=== PATIENT | female | born 2000 | race Caucasian/White ===

== ENCOUNTER 2024-04-22 08:05 | Outpatient (CLI) | payer BC, SELFPAY ==
--- NOTE | ~2024-04-22 | US_ITS ---
EXAMINATION: US OB transvaginal DATE: 04/22/2024 08:30 INDICATION: viability. . TECHNIQUE: Real-time transvaginal pelvic ultrasound was performed. COMPARISON: None. FINDINGS: The uterus measures 7.6 x 4.3 x 5.9 cm. There is an intrauterine gestational sac. A yolk sac is ident ified. The crown rump length measures 3 mm, which correlates with an estimated gestational age of 6 weeks and 0 day(s) (+/-) 4 day(s). heart motion is identified measuring 103 beats per min [place] (bpm) by M-mode Doppler. The right ovary measures 2.6 x 1.7 x 2.9 cm. The left ovary measures 4.0 x 2.4 x 2.3 cm. There is no free fluid in the pelvis. IMPRESSION: 1. Single live intrauterine gestation with estimated date of delivery of 12/16/2024. Reviewed, dictated and finalized at location E. IMPRESSION: 1. Single live intrauterine gestation with estimated date of delivery of 2024.
== END 2024-04-22 08:06 ==
LOC: MICIMG 08:05
PROVIDERS: PCP Nurse Practitioner Women's Health; Visit Provider Nurse Practitioner Women's Health
DX: Z36.87 Encounter for antenatal screening for uncertain dates (principal)
CPT/HCPCS: 76817

== ENCOUNTER 2024-05-01 16:55 | Emergency (ER) | payer BC, SELFPAY ==
--- NOTE | ~2024-05-01 | US_ITS ---
EXAMINATION: US OB transvaginal INDICATION: 7 weeks, abnml HR on first US, ensure viability TECHNIQUE: Sonography of the pelvis was performed by transabdominal and transvaginal techniques. COMPARISON: None. RESULT: Uterus: 9 26 x 5.6 x 8.1 cm. Retroverted. Possible bicornuate uterus. Homogenous myometrium. Intrauterine gestational sac: Single present. Mean Sac Diameter: 4.4 cm, corresponding gestational age 9 week 6 days. Yolk sac: Irregular, 5 mm. Embryo: Single present. [place] rump length: 1.1 cm, corresponding gestational age 7 weeks, 1 days. G estational heart rate: present , 153 bpm. Subgestational hematoma: 1.4 x 0.8 x 0.4 cm. Right ovary: 3.9 x 1.6 x 2.5 cm. Vascular flow is present. No adnexal mass. Left ovary: 3.8 x 2.6 x 2.3 cm. Vascular flow is present. No adnexal mass. Pelvis free fluid: None. IMPRESSION: Single, live intrauterine gestation. Estimated Gestational Age: 7 weeks, 1 days by crown rump length. BEBE by ultrasound 12/17/2024. Possible bicornuate uterus. Reviewed, dictated and finalized at location K. IMPRESSION: Single, live intrauterine gestation. Estimated Gestational Age: 7 weeks, 1 days by crown rump length. BEBE by ultras ound 12/17/2024. Possible bicornuate uterus.
[2024-05-01 17:00] VITALS: BP 128/81; PULSE 69; RESP 18; TEMP 36.4; O2SAT 100
--- NOTE | 2024-05-01 17:49 | ED.NAVMDI ---
HPI - Nausea/Vomiting/Diarrhea General Chief complaint: Nausea/Vomiting/Diarrhea Stated complaint: 7 weeks vomiting Time Seen by Provider: 05/01/24 17:25 Source: patient Mode of arrival: ambulatory Limitations: no limitations History of Present Illness HPI Narrative: Patient is a 23 y/o female who presents to the ED with report of nausea, vomiting. Patient reports she is currently 7 weeks gestation, . She is switching from Dr. Tripp's office to Dr. Torres, but has not seen Dr. Torres yet. states she has had ultrasound for this , but the heart rate was low and she was told she would need a repeat ultrasound next week. She reports having persistent nausea and vomiting over the last 2 days, states she has been unable to keep down any food or drink. Denies significant abdominal pain. Denies fevers. Reports constipation for past 2 days. Denies urinary complaints. Related Data Allergies Allergy/AdvReac Type Severity Reaction Status Date / Time No Known Allergies Allergy Verified 05/01/24 19:11 Review of Systems Review of Systems: CONSTITUTIONAL: Denies fever, chills, or sweats. GASTROINTESTINAL: See HPI GENITOURINARY: Denies dysuria or hematuria. MUSCULOSKELETAL: Denies back pain, extremity pain, myalgia. All systems reviewed & are unremarkable except as noted in HPI and below Exam Narrative: GENERAL: Well appearing, obese with BMI of 31.4, non-toxic, in no acute distress. HEAD: Normocephalic, atraumatic. RESPIRATORY: Airway patent, respirations nonlabored. Clear to auscultation bilaterally, no rales, rhonchi, wheezing. CARDIOVASCULAR: Regular rate and rhythm ABDOMINAL: Soft, no significant tenderness throughout abdomen, nondistended. Normoactive BS. MUSCULOSKELETAL: Moves all extremities. No gross deformities. SKIN: Warm, dry, normal color. NEURO: A&O X3. Speech clear. Cranial nerves II-XII grossly intact. Steady gait. No ataxic movements. PSYCHIATRIC: Appropriate mood and affect. Normal interaction. Course Vital Signs Vital signs: Vital Signs Temperature 97.6 F 05/01/24 17:00 Pulse Rate 69 05/01/24 17:00 Respiratory Rate 18 05/01/24 17:00 Blood Pressure 128/81 05/01/24 17:00 Pulse Oximetry 100 05/01/24 17:00 Oxygen Delivery Room Air 05/01/24 17:00 Temperature 98.5 F 05/01/24 22:26 Pulse Rate 71 05/01/24 22:26 Respiratory Rate 18 05/01/24 22:26 Blood Pressure 109/73 05/01/24 22:26 Pulse Oximetry 100 05/01/24 22:26 Oxygen Delivery Room Air 05/01/24 17:00 MDM - Nausea/Vomiting/Diarrhea MDM Narrative Medical decision making narrative: Patient presented to ED 7 weeks gestation, with persistent nausea vomiting over the last 2 days. Vital signs are stable upon arrival. Patient in no acute distress. Laboratory studies show white blood count of 12.1, likely reactive from vomiting. Stable electrolytes. UA turbid, no evidence of infection. Beta quant [id number]. Ultrasound obtained. Medical Records Attestation: I reviewed the patient's medical records. Lab Data Attestation: I reviewed the patient's lab results. 05/01/24 17:50 05/01/24 17:49 Labs: Lab Results 05/01/24 05/01/24 05/01/24 Range/Units 17:49 17:50 18:02 WBC 12.1 H (4.5-10.0) K/mm3 RBC 4.60 (4.2-5.4) M/mm3 Hgb 12.2 (12.0-15.0) g/dL Hct 38.6 (37.0-47.0) % MCV 83.9 (80-100) fl MCH 26.5 (26-34) pg MCHC 31.6 L (32-36) g/dl RDW 12.8 (11.5-14.5) % Plt Count 246 (150-375) k/mm3 MPV 10.9 H (7.4-10.4) fl Immature Gran % (Auto) 0.2 (0-0.5) % Neut % (Auto) 69.6 (45.5-73.1) % Lymph % (Auto) 22.7 (18.3-44.2) % [place] % (Auto) 7.1 (2.6-8.5) % Eos % (Auto) 0.2 (0-4.4) % Baso % (Auto) 0.2 (0.2-1.2) % Lymph # (Auto) 2.74 (0.9-3.2) K/mm3 [place] # (Auto) 0.9 H (0.1-0.6) K/mm3 Eos # (Auto) 0.0 (0-0.3) K/mm3 Baso # (Auto) 0.0 (0.0-0.1) K/mm3 Abs Immat
[2024-05-01] MEDS: ONDANSETRON INJ 4 MG/2 ML VIAL IV PUSH (17:50)
[2024-05-01] MEDS: SODIUM CHLORIDE 0.9% IV 1,000 ML 999 ML IV CONT (17:50)
[2024-05-01 18:00] LABS: Basophils Percent Auto 0.2 % (0.2-1.2); Eosinophils Percent Auto 0.2 % (0-4.4); Hematocrit 38.6 % (37.0-47.0); Hemoglobin 12.2 g/dL (12.0-15.0); Immature Granulocyte Absolute 0.03 K/mm3 (0.00-0.031); Immature Granulocyte Percent A 0.2 % (0-0.5); Immature Platelet Fraction Pct 4.8 % (0.9-11.2); Lymphocytes Absolute Auto 2.74 K/mm3 (0.9-3.2); Lymphocytes Percent Auto 22.7 % (18.3-44.2); Mean Corpuscular HGB Conc 31.6 g/dl (32-36); Mean Corpuscular Hemoglobin 26.5 pg (26-34); Mean Corpuscular Volume 83.9 fl (80-100); Mean Platelet Volume 10.9 fl (7.4-10.4); Monocytes Absolute Auto 0.9 K/mm3 (0.1-0.6); Monocytes Percent Auto 7.1 % (2.6-8.5); Neutrophils Absolute Auto 8.4 K/mm3 (1.3-6.7); Neutrophils Percent Auto 69.6 % (45.5-73.1); Platelet Count Result 246 k/mm3 (150-375); Red Cell Distribution Width 12.8 % (11.5-14.5); White Blood Count 12.1 K/mm3 (4.5-10.0)
[2024-05-01 18:09] LABS: Alanine Aminotransferase 12 U/L (6-35); Albumin Level 4.4 g/dL (3.5-5.1); Alkaline Phosphatase 50 U/L (38-126); Anion Gap 12 mmol/L (4-12); Aspartate Amino Transferase 21 U/L (14-36); Bilirubin,Total 0.5 mg/dL (0.2-1.3); Blood Urea Nitrogen 6 mg/dL (7-17); Carbon Dioxide 21 mmol/L (22-30); Chloride 105 mmol/L (98-107); Estimated CRCL calculation 142 ml/min; Estimated Glomerular Filt Rate > 60; Glucose 79 mg/dL (65-110); Lipase 58 U/L (23-300); Potassium 3.7 mmol/L (3.4-5.0); Sodium 138 mmol/L (137-145)
[2024-05-01 18:22] LABS: Appearance Urine Turbid (Clear); Bacteria Urine None Seen /hpf; Bilirubin Urine Negative (Negative); Blood Urine Negative (Negative); Color Urine Yellow (Yellow); Glucose Urine UA Negative (Negative); Ketones Urine Negative (Negative); Leukocyte Esterase Ur Trace LEU/UL (Negative); Nitrate Urine Negative (Negative); Non Pathogenic Casts 0-2; Protein Urine Negative (Negative); RBC Urine 0-2 /hpf (0-2); Specific Grav Ur 1.013 (1.001-1.035); Squamous Epithelial Cell Urine Occasional /hpf (Few); Urobilinogen Urine 0.2 mg/dL (<2.0); WBC Urine 0-5 /hpf (0-3); pH Urine 7.5 (5.0-9.0)
[2024-05-01 18:23] LABS: Add Urine Microscopic? YES
[2024-05-01 20:06] VITALS: BP 109/61; PULSE 89; RESP 16; O2SAT 100
[2024-05-01 21:50] VITALS: BP 111/73; PULSE 66; RESP 18; O2SAT 100
[2024-05-01 22:26] VITALS: BP 109/73; PULSE 71; RESP 18; TEMP 36.9; O2SAT 100
== END 2024-05-01 22:15 | disposition home or self-care (01) ==
PROVIDERS: Emergency Provider Physician Assistant
DX: O46.91 Antepartum hemorrhage, unspecified, first trimester (principal); R11.2 Nausea with vomiting, unspecified; O26.891 Other specified pregnancy related conditions, first trimester; Z3A.01 Less than 8 weeks gestation of pregnancy
CPT/HCPCS: 36415; 76817; 80053; 81001; 83690; 83735; 84702; 85025; 85055; 96361; 96374; 99284; J2405; J7030

== ENCOUNTER 2024-05-18 16:58 | Outpatient (CLI) | payer BC, SELFPAY ==
[2024-05-18 17:41] LABS: Basophils Percent Auto 0.2 % (0.2-1.2); Eosinophils Absolute Auto 0.1 K/mm3 (0-0.3); Eosinophils Percent Auto 0.8 % (0-4.4); Hematocrit 38.7 % (37.0-47.0); Hemoglobin 12.3 g/dL (12.0-15.0); Immature Granulocyte Absolute 0.03 K/mm3 (0.00-0.031); Immature Granulocyte Percent A 0.3 % (0-0.5); Lymphocytes Absolute Auto 2.48 K/mm3 (0.9-3.2); Lymphocytes Percent Auto 24.2 % (18.3-44.2); Mean Corpuscular HGB Conc 31.8 g/dl (32-36); Mean Corpuscular Hemoglobin 26.5 pg (26-34); Mean Corpuscular Volume 83.4 fl (80-100); Mean Platelet Volume 10.5 fl (7.4-10.4); Monocytes Absolute Auto 0.8 K/mm3 (0.1-0.6); Monocytes Percent Auto 8.2 % (2.6-8.5); Neutrophils Absolute Auto 6.8 K/mm3 (1.3-6.7); Neutrophils Percent Auto 66.3 % (45.5-73.1); Platelet Count Result 250 k/mm3 (150-375); Red Blood Count 4.64 M/mm3 (4.2-5.4); White Blood Count 10.3 K/mm3 (4.5-10.0)
[2024-05-18 18:23] LABS: Rapid Plasma Reagin Non-Reactive (NonReactive)
[2024-05-18 18:32] LABS: HIV 1/2 Ab P24 Ag Result Negative (Negative)
[2024-05-18 19:13] LABS: Hepatitis B Surface Antigen Negative (Negative)
[2024-05-18 19:19] LABS: Rubella IgG Antibody > 110.0 IU/ML
== END 2024-05-18 16:59 | disposition home or self-care (01) ==
PROVIDERS: PCP Nurse Practitioner Women's Health; Visit Provider Student in an Organized Health Care Education/Training Program
DX: Z34.90 Encounter for supervision of normal pregnancy, unspecified, unspecified trimester (principal)
CPT/HCPCS: 36415; 84702; 85025; 86592; 86644; 86703; 86747; 86762; 86787; 86850; 86900; 86901; 87086; 87340; G0432

== ENCOUNTER 2024-05-21 10:45 | Emergency (ER) | payer BC, SELFPAY ==
[2024-05-21 10:56] VITALS: BP 125/72; PULSE 89; RESP 16; TEMP 36.1; O2SAT 100
--- NOTE | 2024-05-21 11:57 | PC.NURSE ---
head mechanic and xpc tech at bedside to do visual exam and herpes swab.
--- NOTE | 2024-05-21 12:11 | ED.GENADULT ---
HPI - General Adult General Chief complaint: Urogenital-Female Stated complaint: Vaginal Issue Source: patient Mode of arrival: ambulatory Limitations: no limitations History of Present Illness HPI narrative: Patient presents for evaluation of painful lesions to the vagina for the last 3 days. She has a history of herpes. She is currently , 10 weeks gestation, with confirmed IUP per ultrasound. OBGYN is Dr. Torres. She denies any abdominal pain, vaginal bleeding or discharge, urinary symptoms, fever, chills. Related Data Home Medications Medication Instructions Recorded Confirmed vits no.126-ferrous fum tablet PO 05/03/24 05/03/24 28 mg iron-folic acid 800 mcg tablet (Classic ) Allergies Allergy/AdvReac Type Severity Reaction Status Date / Time No Known Allergies Allergy Verified 05/21/24 11:28 Review of Systems Review of Systems: CONSTITUTIONAL: Denies fever, chills, or sweats. EYES: Denies visual changes, redness, or discharge. ENT: Denies rhinorrhea, congestion, sore throat, or otalgia. CARDIOVASCULAR: Denies chest pain, palpitations, or edema. RESPIRATORY: Denies cough or dyspnea. GASTROINTESTINAL: Denies abdominal pain, nausea, vomiting, or diarrhea. GENITOURINARY: Denies dysuria or hematuria. Denies vaginal bleeding or discharge SKIN: Reports painful lesions the vagina. Denies rash or itching. MUSCULOSKELETAL: Denies back pain, joint pain, or myalgia. NEUROLOGIC: Denies headache, numbness, dizziness, or weakness. PSYCHIATRIC: Denies anxiety or depression. [facility] Past Medical History Medical History Reflux nephropathy Surgical History Surgical History No pertinent past surgical history Family History Family History Other Diabetes mellitus Social History Social History Smoking status: Never smoker Tobacco type: e-cigarettes/vaping Second hand tobacco smoke exposure: Yes Alcohol intake: never Substance use: never Substance use type: does not use Do You Feel Safe in your Home?: Yes Lack of Transportation: No Lack of Food: Never True Current Housing: I Have Housing Concerned About Future Housing: No Difficulty Paying Gas/Electric Bills: No Difficulty Paying for Meds: No Currently Unemployed: No Education: High School Diploma/GED Difficulty w/ Childcare or Family Care: No Living arrangements: with family Occupation/Education: occupation 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 HEAD: Normocephalic, atraumatic. EYES: PERRLA and EOMI. ENT: Nares clear, no rhinorrhea or epistaxis. Mucous membranes moist. Oropharynx without tonsillar hypertrophy exudate or other lesions. Bilateral TMs pearly meneses nonbulging NECK: Supple. No adenopathy or masses. No carotid bruits or JVD CHEST: Clear to auscultation. No respiratory distress. No wheezes rales or rhonchi HEART: Regular rate and rhythm. No murmur heard. Normal peripheral pulses. ABDOMEN: Soft, nontender, nondistended, normal active bowel sounds. GENITAL: There 3 ulcerative lesions to the to the labia that are approximately 2 mm in size. EXTREMITIES: Normal range of motion. No edema. SKIN: Warm, dry, no rash. NEURO: No focal deficits. Alert and oriented x3. PSYCH: Normal mood and affect. Course Course Emergency Course: This is a 23-year-old female who presented for evaluation of painful lesions to the vagina. Swabs were obtained to assess for herpes. My clinical suspicion is high that this is herpes. I contacted pharmacist at [facility] to determine whether Valtrex
[2024-05-25 04:23] LABS: Source VAGINA
== END 2024-05-21 12:13 | disposition home or self-care (01) ==
PROVIDERS: Emergency Provider Nurse Practitioner
DX: A60.00 Herpesviral infection of urogenital system, unspecified (principal)
CPT/HCPCS: 87255; 99213; G0463

== ENCOUNTER 2024-07-31 10:46 | Observation (INO) | payer BC, SELFPAY ==
--- NOTE | ~2024-07-31 | US_ITS ---
US OB follow up Ordering provider: Earl Red MD History: . well being, size, placenta, cervical length . Comparison: None. Technique: Transabdominal ultrasound of the pelvis (Doppler ultrasound interrogation techniques used as needed for this exam.) FINDINGS: CERVIX: Normal. UTERUS: Single intrauterine is noted. No heart tones detected. anatomy is difficult to distinguish. Placenta anterior. Cervix measures 3 cm. Gestational age is 20 weeks and 2 days. EFW is 316.4 gm. EFW/GP 51.3%. IMPRESSION: No heart tones detected. Anatomical landmarks are difficult to distinguish. Reviewed, dictated and finalized at location A.
--- NOTE | 2024-07-31 10:46 | OBADM ---
This patient, Екатерина Cameron, admitted to the OB room OB Post 116 for observation. pt states she started to have dark brown vaginal spotting which is now light pick. only she wipes. she feels some cramping but not painful. denies feeling of movement yet. Patient/family oriented to hospital policies and general routines including ID bracelet, bed and alarms, visiting hours, pain management, procedures, bathroom and other care routines, personal items, smoking policy, room service/diet, and visiting hours. Patient/Family are encouraged to report perceived risks to care and to ask questions if they do not understand what they are told or what they should do.
[2024-07-31 11:00] VITALS: BMI 32.1
--- NOTE | 2024-07-31 11:30 | PC.NURSE ---
this RN trying to observe heart tones, but unable to obtain heart tones. called Dr. Red notified unable to obtain FHTs. order received for ultrasound.
[2024-07-31 11:36] VITALS: BP 122/80; PULSE 78
--- NOTE | 2024-07-31 11:50 | PC.NURSE ---
Dr. Red at bedside, spoke to pt and informed no heart tones are obtained with ultrasound. PT and FOB cried and asked question about option of procedure. Induction of labor was discussed and pt and FOB requested to be induced tomorrow AM. Pt asked appropriate question about induction and cause of demise. explained there is no answer for the cause at this time. pt verbalized understanding
--- NOTE | 2024-07-31 12:00 | PC.NURSE ---
ultrasound at bedside unable to obtain heart tones.
--- NOTE | 2024-07-31 13:29 | PM.IMHP ---
H&P: HPI History of Present Illness Date/Time: 07/31/24 13:29 Chief Complaint: vaginal spotting/cramping Narrative: 23 yo at 20w0d who presented with complaint of vaginal spotting and cramping starting this morning. Patient states she noticed some light pink to brown discharge on tissue. She reports associated cramping. She denies any large gush of blood or fluid. She denies any trauma to the abdomen. She denies any sick contacts. She denies any fevers, chills, nausea, vomiting. is complicated by anxiety, h/o HSV, and nausea. Review of Systems Cardiovascular: Cardiovascular: Denies chest pain, Denies leg edema, Denies palpitations, Denies dyspnea and Denies dyspnea on exertion Respiratory: Respiratory: Denies cough, Denies dyspnea and Denies dyspnea on exertion Gastrointestinal: Gastrointestinal: Denies abdominal pain, Denies constipation, Denies diarrhea, Denies nausea and Denies vomiting Genitourinary: Genitourinary: Denies hematuria, Denies urinary frequency, Denies dysuria, Denies pelvic pain, Denies urinary incontinence and Denies vaginal discharge Neurologic: Reports system reviewed and no additional complaints, except as documented Psychiatric: Psychiatric: Reports no additional psychiatric complaints Endocrine: Endocrine: Denies palpitations Meds Home Medications and Allergies Home Medications Medication Instructions Recorded Confirmed Type ondansetron 4 mg disintegrating 4 mg PO Q8H PRN nausea and 05/01/24 Rx tablet vomiting #15 tabs Allergies Allergy/AdvReac Type Severity Reaction Status Date / Time No Known Allergies Allergy Verified 05/01/24 19:11 Vital Signs Vital Signs - 24 hr 07/31/24 11:36 Pulse Rate 78 Blood Pressure 122/80 Exam Const: General: no acute distress Eyes: EOM: EOMs intact bilaterally Neck: Neck: supple Thyroid: thyroid normal Chest: Breast/axilla inspection: normal inspection of the breasts Breast/axilla palpation: normal palpation of the breasts, normal palpation of the axillae and no axillary lymphadenopathy Resp: Effort & Inspection: normal respiratory effort Auscultation: clear to auscultation bilaterally Cardio: Rate: regular rate Rhythm: regular rhythm GI: Inspection: non-distended and other (Gravid) GI Palp: Yes Soft to palpation, No Tenderness to palpation present (GI) and No Guarding due to palpation present (GI) Auscultation: normal bowel sounds : Speculum Exam - Vagina: No vaginal bleeding OB/external & speculum: external exam normal; No vaginal bleeding Skin: General skin exam: normal color and no rashes or lesions noted Neuro: Cognition (Neuro): normal cognition Speech: normal speech Extrem: General: normal to inspection Psych: Mental Status: mental status grossly normal Affect: normal affect Assessment and Plan Assessment and plan (1) IUFD (intrauterine ): Status: Acute Assessment and Plan: 23 yo at 20w0d who was found to have IUFD on US Patient initially presented with complaint of vaginal spotting and cramping No heart tones were identified by Doppler Confirmation ultrasound confirmed IUFD Patient and partner grieving appropriately IUFD discussed at length Condolences given Management options discussed. Discussed misoprostol induction of labor All questions answered Patient request induction of labor tomorrow (2) Anxiety: Code(s): F41.9 - Anxiety disorder, unspecified Status: Acute Assessment and Plan: pt stable on zoloft will continue to offer support
--- NOTE | 2024-08-01 08:14 | PM.OBTRLD ---
OB - Triage/Final Diagnosis Visit Information Date of evaluation: 07/31/24 Reason for evaluation: other (IUFD) Comments/Additional reasons for admission: I have assessed the risk for this patient, Екатерина Cameron, and determined that she would benefit from observation care. Evaluation Vital signs: Vital Signs - 24 hr 07/31/24 11:36 07/31/24 11:00 Pulse Rate 78 Blood Pressure 122/80 Oxygen Delivery Room Air
== END 2024-07-31 13:25 | disposition home or self-care (01) ==
PROVIDERS: Admitting Provider Student in an Organized Health Care Education/Training Program; Visit Provider Student in an Organized Health Care Education/Training Program
DX: O36.4XX0 Maternal care for intrauterine death, not applicable or unspecified (principal); Z3A.20 20 weeks gestation of pregnancy; F41.9 Anxiety disorder, unspecified
CPT/HCPCS: 76816; G0378; G0379

== ENCOUNTER 2024-08-01 06:26 | Inpatient (IN) | payer BC, SELFPAY ==
[2024-08-01] VITALS (74 sets, daily range): BP systolic 99–139; BP diastolic 47–109; PULSE 57–177; TEMP 36.5–37.3; O2SAT 73–100; BMI 32.3
--- NOTE | 2024-08-01 07:33 | WPDHPUPDATE1 ---
History and Physical Update Update Date/Time: 08/01/24 07:33 23 yo who presents for management of IUFD at 20w0d History and Physical has been reviewed, including an updated exam of the patient. There are NO changes in the patient's condition. Risks, benefits, and alternatives have been discussed and questions answered. Patient agrees to proceed with procedure. A/P: admit to L&D routine admission orders continuous tocometer will plan for vaginal misoprostol IOL
[2024-08-01 07:40] LABS: Basophils Percent Auto 0.1 % (0.2-1.2); Eosinophils Absolute Auto 0.1 K/mm3 (0-0.3); Eosinophils Percent Auto 0.6 % (0-4.4); Hematocrit 37.5 % (37.0-47.0); Hemoglobin 11.7 g/dL (12.0-15.0); Immature Granulocyte Absolute 0.05 K/mm3 (0.00-0.031); Immature Granulocyte Percent A 0.5 % (0-0.5); Lymphocytes Percent Auto 17.6 % (18.3-44.2); Mean Corpuscular HGB Conc 31.2 g/dl (32-36); Mean Corpuscular Hemoglobin 26.4 pg (26-34); Mean Corpuscular Volume 84.7 fl (80-100); Mean Platelet Volume 10.6 fl (7.4-10.4); Monocytes Absolute Auto 0.6 K/mm3 (0.1-0.6); Monocytes Percent Auto 6.3 % (2.6-8.5); Neutrophils Absolute Auto 7.3 K/mm3 (1.3-6.7); Neutrophils Percent Auto 74.9 % (45.5-73.1); Platelet Count Result 216 k/mm3 (150-375); Red Blood Count 4.43 M/mm3 (4.2-5.4); Red Cell Distribution Width 13.9 % (11.5-14.5); White Blood Count 9.7 K/mm3 (4.5-10.0)
[2024-08-01] MEDS: miSOPROStol 200 MCG TABLET VAGINAL ×3 (08:05→16:55)
[2024-08-01 08:09] LABS: Free T4 Free Thyroxine 0.93 ng/mL (0.78-2.19)
[2024-08-01 08:11] LABS: Rapid Plasma Reagin Non-Reactive (NonReactive)
[2024-08-01 08:16] LABS: Hemoglobin A1C 4.8 % (<5.7)
[2024-08-01 08:32] LABS: HIV 1/2 Ab P24 Ag Result Negative (Negative)
[2024-08-01 08:38] LABS: Amphetamine Screen Urine Negative (Negative); Barbiturate Screen Urine Negative (Negative); Benzodiazepines Screen Urine Negative (Negative); Cannabinoid Screen Urine Negative (Negative); Cocaine Screen Urine Negative (Negative); Methadone Screen Urine Negative (Negative); Opiate Screen Urine Negative (Negative); Phencyclidine Screen Urine Negative (Negative)
[2024-08-01 09:12] LABS: Rubella IgG Antibody > 110.0 IU/ML
--- NOTE | 2024-08-01 10:23 | PC.NURSE ---
Maged Goldstein RN, Share Coordinator, spoke with Екатерина and BRIAN Moreno from 9:45am-10:20am discussing Share, what to expect for delivery, mementos. Questions asked and answered at this time.
[2024-08-01] MEDS: ACETAMINOPHEN 500 MG TABLET 1000 MG PO (10:40)
[2024-08-01] MEDS: fentaNYL CITRATE INJ (*CRX) 100 MCG/2 ML VIAL 50 MCG IV PUSH ×3 (13:11→16:27)
[2024-08-01] MEDS: ONDANSETRON INJ 4 MG/2 ML VIAL IV PUSH (13:18)
[2024-08-01] MEDS: LACTATED RINGERS 1,000 ML 125 ML IV CONT ×2 (16:00→16:36)
--- NOTE | 2024-08-01 16:15 | WPDANESEPP ---
Anes - Eval Pre Procedure Procedure: Labor Epidural Date/Time: 08/01/24 16:15 Surgeon: Neda Preop Diagnosis: Labor Pain Pre Op Diagnosis: IUFD Patient Data Age: 23 Gender: F Height: 1.7 m Weight: 93.5 kg Last Vital Signs Temp 36.7 C 08/01/24 14:49 Pulse 79 08/01/24 16:00 BP 120/50 L 08/01/24 16:00 O2 Del Method Room Air 08/01/24 07:45 Allergies Allergy/AdvReac Type Severity Reaction Status Date / Time No Known Allergies Allergy Verified 07/31/24 14:18 Home Medications Medication Instructions Recorded Confirmed Type ondansetron 4 mg disintegrating 4 mg PO Q8H PRN nausea and 05/01/24 08/01/24 Rx tablet vomiting #15 tabs valacyclovir 500 mg tablet 500 mg PO Q12H #6 tabs 05/21/24 08/01/24 Rx (Valtrex) sertraline 100 mg tablet 100 mg PO DAILY #90 tabs 05/31/24 08/01/24 Rx fluconazole 150 mg tablet 150 mg PO ONCE #1 tablet 06/19/24 08/01/24 Rx ondansetron 4 mg disintegrating 4 mg PO Q6H PRN nausea and 06/27/24 08/01/24 Rx tablet vomiting #30 tabs vits no.126-ferrous fum 1 tablet PO DAILY #90 tabs 06/27/24 08/01/24 Rx 28 mg iron-folic acid 800 mcg tablet (Classic ) Laboratory Tests 08/01/24 08/01/24 08/01/24 06:54 06:54 06:54 WBC 9.7 K/mm3 (4.5-10.0) RBC 4.43 M/mm3 (4.2-5.4) Hgb 11.7 L g/dL (12.0-15.0) Hct 37.5 % (37.0-47.0) MCV 84.7 fl (80-100) MCH 26.4 pg (26-34) MCHC 31.2 L g/dl (32-36) RDW 13.9 % (11.5-14.5) Plt Count 216 k/mm3 (150-375) MPV 10.6 H fl (7.4-10.4) Immature Gran % (Auto) 0.5 % (0-0.5) Neut % (Auto) 74.9 H % (45.5-73.1) Lymph % (Auto) 17.6 L % (18.3-44.2) [place] % (Auto) 6.3 % (2.6-8.5) Eos % (Auto) 0.6 % (0-4.4) Baso % (Auto) 0.1 L % (0.2-1.2) Lymph # (Auto) 1.70 K/mm3 (0.9-3.2) [place] # (Auto) 0.6 K/mm3 (0.1-0.6) Eos # (Auto) 0.1 K/mm3 (0-0.3) Baso # (Auto) 0.0 K/mm3 (0.0-0.1) Abs Immat Gran (auto) 0.05 H K/mm3 (0.00-0.031) Absolute Neuts (auto) 7.3 H K/mm3 (1.3-6.7) Absolute Nucleated RBC 0.000 K/mm3 (0.0-0.012) Nucleated RBC % 0.0 % (0.0-0.2) LA PTT Screen Pending LA PTT Comment Pending dRVVT Screen Pending Lupus Anticoag Interp Pending Hemoglobin A1c 4.8 % (<5.7) TSH 1.590 uIU/mL (0.465-4.680) Free T4 0.93 ng/mL (0.78-2.19) Urine Opiates Screen Urine Methadone Screen Ur Barbiturates Screen Ur Phencyclidine Scrn Ur Amphetamine Screen U Benzodiazepines Scrn Urine Cocaine Screen U Cannabinoids Screen Beta-2-GPI IgG Ab Pending Pending Beta-2-GPI IgA Ab Pending Pending Beta-2-GPI IgM Ab Pending Phosphatidylserine Ab Phosphatidylserine IgG Phosphatidylserine IgA Phosphatidylserine IgM Anti-Cardiolipin IgG Ab Anti-Cardiolipin IgA Ab Anti-Cardiolipin IgM Ab RPR CMV IgG Ab CMV IgM Ab HSV I Specific Ab HSV II Specific Ab HIV 1&2 Ab/P24 Ag 4thGn Parvovirus B19 IgG Intp Parvovirus B19 IgM Intp Rubella IgG Antibody Toxoplasma IgG Ab Toxoplasma IgM Ab Add Miscellaneous Test Blood Type Antibody Screen 08/01/24 08/01/24 08/01/24 06:54 06:54 06:54 WBC RBC Hgb Hct MCV MCH MCHC RDW Plt Count MPV Immature Gran % (Auto) Neut % (Auto) Lymph % (Auto
--- NOTE | 2024-08-01 19:08 | PM.OBPRVD ---
OB - Vaginal Delivery Note Procedure Delivery date: 08/01/24 Events: Other (intrauterine demise) Induction method: Per Misoprostol Protocol Delivery augmentation: Rupture of Membranes Delivery monitor: External Uterine Route of delivery: Episiotomy description: None Laceration Description: None Specimen: Yes Quantitative Blood Loss (ml): 100 Anesthesia type: Epidural Disposition: Floor Complications: No immediate complications Narrative: Patient reports increased pelvic pressure. Fetus was noted to be partially delivered through the cervix. With gentle fundal pressure, the fetus was delivered into the vagina. The umbilical cord was identified and clamped. The placenta delivered with gentle traction. The perineum was examined and noted to be intact. Good hemostasis was noted. Bedside US was performed and a good endometrial stripe was noted. The patient and family were grieving appropriately in the room. Baby Date of : 08/01/24 Gestational Age by Date: 20 Infant gender: Male presentation: compound Placenta delivery description: Spontaneous Cord Vessel Description: Other (torsed, attached to head) score one minute: 0 score five minutes: 0
[2024-08-01] MEDS: ACETAMINOPHEN 325 MG TABLET 650 MG PO (20:16)
--- NOTE | 2024-08-01 22:33 | PC.NURSE ---
This RN called the coroners office at this time.
--- NOTE | 2024-08-01 23:13 | PC.NURSE ---
This nurse called [facility] at this time. Reported demise.
[2024-08-02 00:57] VITALS: PULSE 90; O2SAT 96
[2024-08-02 00:58] VITALS: BP 95/51; PULSE 75
[2024-08-02 01:00] VITALS: BP 128/71; PULSE 83
[2024-08-02 01:14] VITALS: TEMP 36.3
[2024-08-02 04:59] VITALS: PULSE 69; O2SAT 98
[2024-08-02 05:00] VITALS: BP 117/66; PULSE 67; TEMP 36.6
--- NOTE | 2024-08-02 07:22 | PM.OBDSVD ---
DS: Admitting Diagnosis Discharge Date 08/02/24 Admitting Diagnosis intrauterine demise DS: Discharge Diagnosis Discharge Diagnosis (1) IUFD (intrauterine ): Status: Acute OB - DS: Summary Hospital Course Hospital Course: 23 yo who presented with IUFD at 20w0d. Patient underwent misoprostol IOL. She delivered the fetus and placenta without complication. Patient was observed overnight. Her hospital course was uncomplicated and she was discharged home. OB Procedures : None OB Procedures Intrapartum: Spontaneous Vag Delivery OB Procedures: : RHo (D) lg Peripartum Data Infant Delivery Method: Natural Vaginal Laceration Description: None Episiotomy description: None complications: none Status at Discharge Overall status at discharge: patient is back to baseline Time Spent with Patient Time attestation: Total time spent providing and/or coordinating discharge services: Time spent: Less than 30 minutes DS: Data Data Completed and Pending Labs on day of discharge: Labs from last 24 hours 08/01/24 08/01/24 08/01/24 07:43 06:54 06:54 WBC RBC Hgb Hct MCV MCH MCHC RDW Plt Count MPV Immature Gran % (Auto) Neut % (Auto) Lymph % (Auto) Twiggs % (Auto) Eos % (Auto) Baso % (Auto) Lymph # (Auto) Twiggs # (Auto) Eos # (Auto) Baso # (Auto) Abs Immat Gran (auto) Absolute Neuts (auto) Absolute Nucleated RBC Nucleated RBC % LA PTT Screen LA PTT Comment dRVVT Screen Lupus Anticoag Interp Hemoglobin A1c TSH Free T4 Urine Opiates Screen Negative Urine Methadone Screen Negative Ur Barbiturates Screen Negative Ur Phencyclidine Scrn Negative Ur Amphetamine Screen Negative U Benzodiazepines Scrn Negative Urine Cocaine Screen Negative U Cannabinoids Screen Negative Beta-2-GPI IgG Ab Beta-2-GPI IgA Ab Beta-2-GPI IgM Ab Phosphatidylserine Ab Phosphatidylserine IgG Phosphatidylserine IgA Phosphatidylserine IgM Anti-Cardiolipin IgG Ab Anti-Cardiolipin IgA Ab Pending Anti-Cardiolipin IgM Ab Pending Pending RPR Non-reactive CMV IgG Ab Pending CMV IgM Ab Pending HSV I Specific Ab Pending HSV II Specific Ab Pending HIV 1&2 Ab/P24 Ag 4thGn Negative Parvovirus B19 IgG Intp Pending Parvovirus B19 IgM Intp Pending Rubella IgG Antibody > 110.0 Toxoplasma IgG Ab Pending Toxoplasma IgM Ab Pending Add Miscellaneous Test Pending Blood Type A Negative Antibody Screen Negative 08/01/24 08/01/24 08/01/24 06:54 06:54 06:54 WBC RBC Hgb Hct MCV MCH MCHC RDW Plt Count MPV Immature Gran % (Auto) Neut % (Auto) Lymph % (Auto) Twiggs % (Auto) Eos % (Auto) Baso % (Auto) Lymph # (Auto) Twiggs # (Auto) Eos # (Auto) Baso # (Auto) Abs Immat Gran (auto) Absolute Neuts (auto) Absolute Nucleated RBC Nucleated RBC % LA PTT Screen LA PTT Comment dRVVT Screen Lupus Anticoag Interp Hemoglobin A1c TSH Free T4 Urine Opiates Screen Urine Methadone Screen Ur Barbiturates Screen Ur Phencyclidine Scrn Ur Amphetamine Screen U Benzodiazepines Scrn Urine Cocaine Screen U Cannabinoids Screen Beta-2-GPI IgG Ab Beta-2-GPI IgA Ab Pending Beta-2-GPI IgM Ab Pending Pending Phosphatidylserine Ab Pending Phosphatidylserine IgG Pending Phosphatidylserine IgA Pending Phosphatidylserine IgM Pending Anti-Cardiolipin IgG Ab Pending Pending Anti-Cardiolipin IgA Ab Pending Anti-Cardiolipin IgM Ab RPR CMV IgG Ab CMV IgM Ab HSV I Specific Ab HSV II Specific Ab HIV 1&2 Ab/P24 Ag 4thGn Parvovirus B19 IgG Intp Parvovirus B19 IgM Intp Rubella IgG Antibody Toxoplasma IgG Ab Toxoplasma IgM Ab Add Miscellaneous Test Blood Type Antib
[2024-08-02] MEDS: ACETAMINOPHEN 325 MG TABLET 650 MG PO (07:51)
[2024-08-02 19:29] LABS: Lupus dRVVT Screen 42 sec (< OR = 45); PTT-LA Screen 37 sec (< OR = 40)
[2024-08-03 03:53] LABS: Toxoplasma IgG Antibody <7.20 IU/mL
[2024-08-05 03:18] LABS: Anti Cardio Antibody IgM <2.0 MPL-U/mL; Anti Cardiolipin Antibody IgA <2.0 APL-U/mL; Anti Cardiolipin Antibody IgG <2.0 GPL-U/mL
[2024-08-07 10:38] LABS: PS/PT AB IgG 118 U (< OR = 30); PS/PT AB IgM <9 U (< OR = 30)
[2024-08-09 04:43] LABS: CMV IgM Antibody <30.00 AU/mL; Toxoplasma IgM Antibody <8.00 AU/mL
[2024-08-15 13:08] LABS: Anti Cardio Antibody IgM <2.0 MPL-U/mL; Anti Cardiolipin Antibody IgA <2.0 APL-U/mL; Anti Cardiolipin Antibody IgG <2.0 GPL-U/mL
== END 2024-08-02 09:05 | disposition home or self-care (01) | DRG 807 ==
PROVIDERS: Admitting Provider Student in an Organized Health Care Education/Training Program; Visit Provider Student in an Organized Health Care Education/Training Program
DX: O36.4XX0 Maternal care for intrauterine death, not applicable or unspecified (principal); Z37.1 Single stillbirth; Z3A.20 20 weeks gestation of pregnancy
CPT/HCPCS: 36415; 80307; 83036; 84439; 84443; 85025; 85613; 85730; 86146; 86147; 86592; 86644; 86645; 86695; 86696; 86703; 86747; 86762; 86777; 86850; 86900; 86901; 88307; A9270; G0432; J2405; J2795; J3010; J7120

== ENCOUNTER 2024-08-06 13:44 | Outpatient (CLI) | payer SELFPAY ==
--- NOTE | 2024-08-06 15:10 | PC.NURSE ---
This pt arrived on unit this afternoon in tears after history of 20 wk IUFD earlier this week. Talked with this patient and consulted with Maged Goldstein RN and Dr. Marsh. Dr. Marsh was given the history on this pt of Dr. Red's. MD was informed of pt's feeling anxious, overwhelmed, and at times a sense of impending doom . Pt denies any thoughts of harming herself or others. States she had a history of anxiety that Paxil controlled for years, but it stopped working and she started another med , then became and was switched to Zoloft that has never seemed to help her anxiety. Pt's family is from [place] and her mother was here until yesterday. She moved up here with the father of the baby for his work, but doesn't feel like she has the support from his family. He didn't even want her to come in to see us today and she had to get mad and come in on her own. Pt verbalized that she felt much better after talking and felt like she had decompressed . Pt has appointment to see Dr. Red in the morning. Pt gave me permission to give her contact information to Nick Gao to set up a counseling session for this week. Maged Goldstein RN plans to follow up with pt early this week also. No additional orders or recommendations from Dr. Marsh. Pt reassured that her feelings are valid and very normal and feels good about the follow up she will receive. Pt home with instructions to feel free to reach out to us if she should need to prior to her seeing MD in the morning.
--- NOTE | 2024-08-06 16:48 | PC.NURSE ---
Nick Gao DNP, CNM, PMHNP-BC from [facility] called back after receiving message and given pt's contact information and informed of patients' history and concerns. She plans to try to contact pt shasha.
== END 2024-08-06 13:45 | disposition home or self-care (01) ==
PROVIDERS: Visit Provider Obstetrics & Gynecology
DX: O99.345 Other mental disorders complicating the puerperium (principal)
CPT/HCPCS: 99199

== ENCOUNTER 2024-08-07 11:06 | Outpatient (CLI) | payer BC, SELFPAY ==
--- NOTE | ~2024-08-07 | US_ITS ---
EXAMINATION: US pelvic complete w TV DATE: 08/07/2024 11:28 INDICATION: Pelvic and perineal pain. TECHNIQUE: Multiple transabdominal and transvaginal sonographic images of the pelvis were obtained. COMPARISON: Ultrasound 07/31/2024 FINDINGS: TRANSABDOMINAL ULTRASOUND: The uterus measures 10.3 x 0.5 x 6.3 cm. There is no free fluid in the pelvis. TRANSVAGINAL ULTRASOUND: The endometrial complex measures 22 mm in thickness. The ovaries are not visualized. IMPRESSION: 1. Thickened endometrial complex suspicious for retained products of conception. Reviewed, dictated and finalized at location A. IMPRESSION: 1. Thickened endometrial complex suspicious for retained products of conception .
== END 2024-08-07 11:07 | disposition home or self-care (01) ==
LOC: GOSHIMG 11:06
PROVIDERS: PCP Obstetrics & Gynecology; Visit Provider Obstetrics & Gynecology
DX: N93.8 Other specified abnormal uterine and vaginal bleeding (principal); R10.2 Pelvic and perineal pain
CPT/HCPCS: 76830; 76856

== ENCOUNTER 2024-08-07 11:29 | Outpatient (CLI) | payer BC, SELFPAY ==
[2024-08-07 12:46] LABS: Basophils Percent Auto 0.4 % (0.2-1.2); Eosinophils Absolute Auto 0.2 K/mm3 (0-0.3); Hematocrit 35.8 % (37.0-47.0); Hemoglobin 11.2 g/dL (12.0-15.0); Immature Granulocyte Absolute 0.02 K/mm3 (0.00-0.031); Immature Granulocyte Percent A 0.2 % (0-0.5); Lymphocytes Absolute Auto 2.42 K/mm3 (0.9-3.2); Lymphocytes Percent Auto 29.1 % (18.3-44.2); Mean Corpuscular HGB Conc 31.3 g/dl (32-36); Mean Corpuscular Hemoglobin 26.6 pg (26-34); Mean Platelet Volume 10.9 fl (7.4-10.4); Monocytes Absolute Auto 0.6 K/mm3 (0.1-0.6); Monocytes Percent Auto 7.3 % (2.6-8.5); Neutrophils Absolute Auto 5.1 K/mm3 (1.3-6.7); Platelet Count Result 251 k/mm3 (150-375); Red Blood Count 4.21 M/mm3 (4.2-5.4); Red Cell Distribution Width 13.6 % (11.5-14.5); White Blood Count 8.3 K/mm3 (4.5-10.0)
[2024-08-07 13:29] LABS: Add Urine Microscopic? YES; Appearance Urine Turbid (Clear); Bacteria Urine None Seen /hpf; Bilirubin Urine Negative (Negative); Blood Urine Trace (Negative); Color Urine Yellow (Yellow); Glucose Urine UA Negative (Negative); Ketones Urine Negative (Negative); Leukocyte Esterase Ur Negative LEU/UL (Negative); Need Manual Microscopic Reviewed; Nitrate Urine Negative (Negative); Non Pathogenic Casts 0-2; Protein Urine Negative (Negative); RBC Urine 0-2 /hpf (0-2); Specific Grav Ur 1.016 (1.001-1.035); Squamous Epithelial Cell Urine None Seen /hpf (Few); Urobilinogen Urine 0.2 mg/dL (<2.0); WBC Urine 0-5 /hpf (0-3); pH Urine 7.5 (5.0-9.0)
[2024-08-07 13:46] LABS: Amorphous Sediment Urine Moderate
== END 2024-08-07 11:30 | disposition home or self-care (01) ==
LOC: ANHGOSHLAB 11:31
PROVIDERS: PCP Obstetrics & Gynecology; Visit Provider Obstetrics & Gynecology
DX: R10.2 Pelvic and perineal pain (principal)
CPT/HCPCS: 36415; 81001; 85025; 87086

== ENCOUNTER 2024-08-08 00:12 | Day surgery (SDC) | payer BC, SELFPAY ==
[2024-08-07 13:52] VITALS: BMI 32.0
--- NOTE | 2024-08-07 13:52 | PC.NURSE ---
Report to the Outpatient Waiting Room, entrance under the green pavilion located off [facility], at time _1030_ on date _[id number]_. Planned Procedure Time: _1230_.? Time changes happen often and if your time is changed the preop area will call you the afternoon before. - You and your visitor will be asked to self-screen and do not enter if you have any COVID symptoms. Please call surgeon if you need to reschedule. - A mask is optional within the hospital at this time. Patients may have clear liquids (water, carbonated beverages, clear teas, apple juice) until 3 hours prior to surgery with a maximum of 20 ounces. - No food from midnight until time of surgery and no smoking Take only the following medications with a SIP of water on the morning of surgery: ____Zoloft, Doxycycline and if needed Buspirone. DO NOT STOP ANY OF YOUR OTHER PRESCRIPTION MEDICATIONS PRIOR TO SURGERY EXCEPT THE FOLLOWING Medications to discontinue per physician ___None Please no make-up, nail azeri, hairspray, perfume, deodorant, or body powder the day of surgery.? No jewelry (including any body piercings) or valuables the day of surgery, leave them at home.? Please take a shower or bath the night before, or the morning of, surgery with an antibacterial soap.? Wear comfortable, loose fitting clothing.? - Jewelry must be removed prior to entering the operating room.? Rings and piercings that are not removed may be cut off. - The hospital will not accept responsibility for valuables.? - Please leave all valuables, including medications, at home the day of surgery. If you are going home after surgery, a licensed service parts driver must drive you home.? - NO public transportation without another adult if you receive anesthesia. - We recommend that an adult stay with you for 24 hours following discharge. - We also recommend that you do not drive, make important decision, drink alcoholic beverages, or take any drugs that were not prescribed by your health care provider for at least 24 hours after your discharge time. Follow any additional instructions given to you from your surgeon. Telephone instructions given to __Екатерина__and asked if any additional questions and then verbalized understanding. Patient advised to call surgeon office or pre surgery nurse liaison [phone] if any additional questions.
--- NOTE | 2024-08-08 09:13 | WPDHPUPDATE1 ---
History and Physical Update Update Date/Time: 08/08/24 09:13 History and Physical has been reviewed, including an updated exam of the patient. There are NO changes in the patient's condition. Risks, benefits, and alternatives have been discussed and questions answered. Patient agrees to proceed with suction D&C for retained placenta .
--- NOTE | 2024-08-08 09:54 | P.PNAN_ITS ---
Anes - Initial Pre Proc Eval Procedure: Operation Date: 08/08/24 12:30 Proposed Procedures p Suction Dilation and Curettage - Chaya Torres MD Date/Time: 08/08/24 09:54 Surgeon: Chaya Torres MD Pre Op Diagnosis: Retained portion placenta, Intrauterine Patient Data Age: 23 Gender: F Height: 1.7 m Weight: 92.7 kg Allergies Allergy/AdvReac Type Severity Reaction Status Date / Time No Known Allergies Allergy Verified 08/07/24 13:47 Home Medications Medication Instructions Recorded Confirmed Type sertraline 100 mg tablet 100 mg PO DAILY #90 tabs 05/31/24 08/07/24 Rx buspirone 10 mg tablet 10 mg PO BID PRN panic attack(s) 08/07/24 08/07/24 Rx #90 tabs doxycycline hyclate 100 mg tablet 100 mg PO BID 10 days #20 tabs 08/07/24 08/07/24 Rx Patient hx anesthesia problems: none Family hx anesthesia problems: none Results Review: All pre-operative results and documents have been reviewed as part of the pre- operative evaluation. [facility] Past Medical History Medical History Reflux nephropathy Surgical History Surgical History No pertinent past surgical history Family History Family History Other Diabetes mellitus Social History Social History Smoking status: Former smoker Tobacco type: e-cigarettes/vaping Second hand tobacco smoke exposure: Yes Additional smoking assessment comments: Used to vape. Alcohol intake: never Substance use: never Substance use type: does not use Do You Feel Safe in your Home?: Yes Lack of Transportation: No Lack of Food: Never True Current Housing: I Have Housing Concerned About Future Housing: No Difficulty Paying Gas/Electric Bills: No Difficulty Paying for Meds: No Currently Unemployed: No Education: High School Diploma/GED Difficulty w/ Childcare or Family Care: No Living arrangements: with family Occupation/Education: occupation Additional occupation/education comments: [employer] Gender identity (if verbalized by the patient): Female Spiritual care concerns: No Anes - Eval Final PreProcedure Day of Procedure 08/08/24 09:54 Patient weight: obese Heart: regular rate and rhythm Lungs: clear to auscultation Airway: Mallampati scale class II Neurological: alert and oriented Last oral intake: >/= 8 hours ASA classification: II Emergent: no Anesthetic plan: proceed Anesthesia type and monitoring: general GIVS and standard monitoring Results Review: All pre-operative results and documents have been reviewed as part of the pre- operative evaluation. Informed Consent: The patient's anesthetic plan and its attendant risks and benefits were discussed with the patient/family/POA. Questions were solicited and answers provided to the satisfaction of the patient/family/POA.
[2024-08-08] MEDS: ACETAMINOPHEN 500 MG TABLET 1000 MG PO (11:23)
[2024-08-08] MEDS: metroNIDAZOLE 500 MG/ISO 100ML 500 MG/100 ML BAG 100 MG IVPB (11:23)
[2024-08-08] MEDS: LACTATED RINGERS 1,000 ML 30 ML IV CONT (11:24)
[2024-08-08 11:30] VITALS: BP 122/84; PULSE 99; RESP 16; TEMP 36.8; O2SAT 100; BMI 31.8
[2024-08-08] MEDS: DOXYCYCLINE 100 MG/NS 100 ML 100 MG/100 ML BAG IVPB (12:00)
[2024-08-08] MEDS: miSOPROStol 200 MCG TABLET 800 MCG (12:52)
[2024-08-08] MEDS: METHYLERGONOVINE MALEATE 0.2 MG/ML VIAL IM (12:58)
[2024-08-08 13:03] VITALS: BP 125/85; PULSE 91; RESP 16; O2SAT 97
--- NOTE | 2024-08-08 13:07 | W.PM.PROC2 ---
Procedure Note - Detailed Date of Procedure 08/08/24 Pre-op Diagnosis Retained portion placenta, h/o Intrauterine @ 20wks Post-op Diagnosis Same Procedure Performed Suction D&C Surgeon Chaya Torres MD Anesthesia MAC Findings Uterus sounded to 12cm; cervix 1cm dilated, products noted and removed. Small amount of atony at end of case; methergine 0.2mg IM and cytotec 800mcg placed rectally. Products of conception/blood = 200mL Description of Procedure Екатерина was taken to the operating room where she was placed under sedation without complications. She was then prepped and draped in the usual sterile fashion in the dorsal lithotomy position with her legs in low Cisco stirrups. A time-out was performed and she received doxycycline 100mg IV and metronidazole 500mg IV once pre-operatively. A bivalve speculum was placed within the vagina where the cervix was easily identified. The anterior lip of the cervix was grasped with a single-tooth tenaculum and the uterus was gently sounded. The cervix was then serially dilated. A 12mm suction curettage was then gently place within in the uterine cavity until the fundus was reached. The suction was then applied and two passes were then made and retained placenta were noted to be removed. A bedside US was performed and additional products were noted. I then switched to an 8mm suction curettage and four additional passes were made. A bedside US was then performed again and no additional products were noted and a thin stripe was seen. The cervix was noted to have clamped down. Some brisker bleeding was then noted, and I decided to proceed with Methergine 0.2mg IM and Cytotec 800mcg was placed rectally. All instruments were removed from the vagina and I performed a bimanual massage. Good uterine tone and good hemostasis was then noted. Sponge, lap, instrument, and needle counts were correct at the end of the procedure. Patient was awoken from anesthesia and taken to recovery with plans of same-day discharge home. She will continue Doxycycline 100mg PO BID + Metronidazole 500mg PO BID for 10 days as she had delivered on 08/01/24. Estimated Blood Loss 200 IV Fluids 800 Pathology Yes (retained placenta) Complications No immediate complications Condition Stable Disposition Same day [facility] Billing Surgery - Charge Forward: Surgery Billing
[2024-08-08] MEDS: fentaNYL CITRATE INJ (*CRX) 100 MCG/2 ML VIAL 25 MCG IV PUSH (13:08)
[2024-08-08 13:30] VITALS: BP 126/88; PULSE 63; RESP 16; O2SAT 100
[2024-08-08] MEDS: DOXYCYCLINE HYCLATE 100 MG TABLET 200 MG PO (13:52)
[2024-08-08] MEDS: oxyCODONE HCL (*CRX) 5 MG TAB IR PO (13:52)
[2024-08-08 14:00] VITALS: BP 115/77; PULSE 62; RESP 16; O2SAT 100
== END 2024-08-08 14:10 | disposition home or self-care (01) ==
PROVIDERS: Visit Provider Obstetrics & Gynecology
PROC: (CPT 59820; principal; 2024-08-08 12:30)
DX: O02.1 Missed abortion (principal); F41.8 Other specified anxiety disorders; F41.0 Panic disorder [episodic paroxysmal anxiety]; G62.9 Polyneuropathy, unspecified; Z87.891 Personal history of nicotine dependence
CPT/HCPCS: 59820; 36415; 86850; 86900; 86901; 88305; A9270; J1836; J2210; J2250; J2704; J3010; J7120

== ENCOUNTER 2024-11-01 11:40 | Emergency (ER) | payer BC, SELFPAY ==
[2024-11-01 11:55] VITALS: BP 124/74; PULSE 91; RESP 16; TEMP 36.9; O2SAT 100
--- NOTE | 2024-11-01 13:32 | ED_ITS ---
HPI - General Adult General Chief complaint: Ear Stated complaint: Sinus Problem/Ear Pain Source: patient Mode of arrival: ambulatory Limitations: no limitations History of Present Illness HPI narrative: Patient presents for evaluation of left-sided ear pain and sinus pressure. She indicates she has had some nasal congestion and drainage for about nine days. The drainage is green in color. She went to an urgent care in [place] around [place] time and was given prednisone but no antibiotics. She now has increase frontal sinus pressure. She denies any fever, chills, nausea, vomiting, cough or SOB. She does not smoke. Related Data Allergies Allergy/AdvReac Type Severity Reaction Status Date / Time No Known Allergies Allergy Verified 11/01/24 12:50 Review of Systems Review of Systems: CONSTITUTIONAL: Denies fever, chills, or sweats. EYES: Denies visual changes, redness, or discharge. ENT: Reports sinus congestion, thick green drainage from the nares, and ear pain CARDIOVASCULAR: Denies chest pain, palpitations, or edema. RESPIRATORY: Denies cough or dyspnea. GASTROINTESTINAL: Denies abdominal pain, nausea, vomiting, or diarrhea. GENITOURINARY: Denies dysuria or hematuria. SKIN: Denies rash or itching. MUSCULOSKELETAL: Denies back pain, joint pain, or myalgia. NEUROLOGIC: Reports frontal headache. Denies numbness, dizziness, or weakness. PSYCHIATRIC: Denies anxiety or depression. [facility] Past Medical History Medical History Reflux nephropathy Surgical History Surgical History H/O dilation and curettage aug 08 2024 Family History Family History Other Diabetes mellitus Social History Social History Smoking status: Former smoker Tobacco type: e-cigarettes/vaping Second hand tobacco smoke exposure: Yes Additional smoking assessment comments: Used to vape. Alcohol intake: never Substance use: never Substance use type: does not use Do You Feel Safe in your Home?: Yes Lack of Transportation: No Lack of Food: Never True Current Housing: Decline to Answer Concerned About Future Housing: Decline to Answer Difficulty Paying Gas/Electric Bills: Decline to Answer Difficulty Paying for Meds: Decline to Answer Currently Unemployed: Decline to Answer Education: Decline to Answer Difficulty w/ Childcare or Family Care: Decline to Answer Living arrangements: with family Occupation/Education: occupation Additional occupation/education comments: [employer] Gender identity (if verbalized by the patient): Female Spiritual care concerns: No Exam Narrative: GENERAL: Well-appearing, well-nourished, and in no acute distress. HEAD: Normocephalic, atraumatic. EYES: PERRLA and EOMI. ENT: There is frontal sinus tenderness. Nares clear, no rhinorrhea or epistaxis. Mucous membranes moist. Oropharynx without tonsillar hypertrophy exudate or other lesions. Left tympanic membrane is erythematous. NECK: Supple. No adenopathy or masses. No carotid bruits or JVD CHEST: Clear to auscultation. No respiratory distress. No wheezes rales or rhonchi HEART: Regular rate and rhythm. No murmur heard. Normal peripheral pulses. ABDOMEN: Soft, nontender, nondistended, normal active bowel sounds. EXTREMITIES: Normal range of motion. No edema. SKIN: Warm, dry, no rash. NEURO: No focal deficits. Alert and oriented x3. PSYCH: Normal mood and affect. Course Course Emergency Course: This is a 23-year-old female who presented for evaluation of sinus symptoms. She meets criteria for bacterial sinusitis based on mucopurulent discharge in number of days in which she has been symptomatic. Will treat with Augmentin. Increase hydration. [id number]-[id number] agents for symptom management. Follow up with primary provider. Go to the ER for worsening symptoms. Patient in agreement with plan of care Level of Care: Express Care Visit Vital Signs Vital signs: Vital Signs Temperature 36.9 C 11/01/24 11:55 Pulse Rate 91 11/01/24 11:55 Respiratory Rate 16 11/01/24 11:55 Blood Pressure 124/74 11/01/24 11:55 Pulse Oximetry 100 11/01/24 11:55 Oxygen Delivery Room Air 11/01/24 11:55 Temperature 36.9 C 11/01/24 11:55 Pulse Rate 91 11/01/24 11:55 Respiratory Rate 16 11/01/24 11:55 Blood Pressure 124/74 11/01/24 11:55 Pulse Oximetry 100 11/01/24 11:55 Oxygen Delivery Room Air 11/01/24 11:55 Medical Decision Making Vital Signs Vital Signs: Vital Signs Temperature 36.9 C 11/01/24 11:55 Pulse Rate 91 11/01/24 11:55 Respiratory Rate 16 11/01/24 11:55 Blood Pressure 124/74 11/01/24 11:55 Pulse Oximetry 100 11/01/24 11:55 Oxygen Delivery Room Air 11/01/24 11:55 Temperature 36.9 C 11/01/24 11:55 Pulse Rate 91 11/01/24 11:55 Respiratory Rate 16 11/01/24 11:55 Blood Pressure 124/74 11/01/24 11:55 Pulse Oximetry 100 11/01/24 11:55 Oxygen Delivery Room Air 11/01/24 11:55 Discharge Plan Discharge Clinical Impression: Sinusitis Patient Disposition: Home, Self-Care Condition: Stable Instructions: Antibiotic Form, Sinusitis (ED) Patient Language: Guinean Prescriptions: New amoxicillin-pot clavulanate 875-125 mg tablet 1 tablet PO Q12H Qty: 20 0RF No Action buspirone 10 mg tablet 10 mg PO BID PRN (Reason: panic attack(s)) Qty: 90 0RF sertraline 100 mg tablet 100 mg PO DAILY Qty: 90 3RF Follow-up/Referrals: Adri England DO [Physician] - Time of Disposition: 13:30
--- OUTSIDE RECORDS SUMMARY | 2024-11-08 06:46 | XMS_ITS | Clinical Summary ---
Author Organization [facility] Address [address] [place] [address] Care Team Providers Care Animal Taxonomist Name Role Phone Unavailable Primary Care Provider Unavailabl e Social History Tobacco Use Types Packs/Day Years Used Date Smoking Tobacco: Never Assessed Comments Unknown Sex and Gender Information Value Date Recorded Sex Assigned at Not on file Legal Sex Female 7:51 AM PST Gender Identity Not on file Sexual Orientation Not on file Plan of Treatment Health Maintenance Due Date Last Done Comments Dental Prophylaxis 03/15/2021 09/14/2020, 10/31/2019 , 03/10/2018 Procedures Procedure Name Priority Date/Time Associated Diagnosis Comments PROPHYLAXIS - ADULT Routine 09/14/2020 3:00 AM EST from Last 3 Months or Most Recently Relevant to Health Maintenance Insurance [facility] PPO
--- OUTSIDE RECORDS SUMMARY | 2024-11-08 06:46 | XMS_ITS ---
Author Organization [facility] Address [address] [place] [address] Care Team Providers Care Sales Agent [employer] Insurance Name Role Phone Unavailable Unavailable Unavailable Surgery Details Not on file Complications Check Surgery Details section. Procedure Estimated Blood Loss Check Surgery Details section. Procedure Findings Check Surgery Details section. Procedure Specimens Taken Check Surgery Details section.
--- OUTSIDE RECORDS SUMMARY | 2024-11-08 06:46 | XMS_ITS | Encounter Summary ---
Author Organization [facility] Address [address] [place] [address] Care Team Providers Care Podiatric Physician Name Role Phone Unavailable Primary Care Provider Unavailabl e Prior Encounters Date Type Department Care Team Description 11/20/2019 Converted CPS Chart Documents [facility] [address] [place] [phone] <No scans attached> 11/20/2019 Converted 13x [place] [phone] <No scans attached> Plan of Treatment Not on file Procedures Procedure Name Priority Date/Time Associated Diagnosis Comments ORAL HYGIENE INSTRUCTIONS Routine 2019 3:00 AM EST TOPICAL APPLICATION OF FLUORIDE VARNISH Routine 09/14/2020 3:00 AM EST PROPHYLAXIS - ADULT Routine 09/14/2020 3 :00 AM EST PERIODIC ORAL EVALUATION - ESTABLISHED PATIENT Routine 09/14/2020 3:00 AM EST BITEWINGS - FOUR RADIOGRAPHIC IMAGES Routine 09/14/2020 3:00 AM EST MISSED APPOINTMENT Routine 05/09/2020 3: 00 AM EDT PERIODIC ORAL EVALUATION - ESTABLISHED PATIENT Routine 10/31/2019 3:00 AM EST ORAL HYGIENE INSTRUCTIONS Routine 2018 3:00 AM EST TOPICAL APPLICATION OF FLUORIDE VARNISH Routine 10/31/2019 3:00 AM EST PROPHYLAXIS - ADULT Routine 10/31/2019 3 :00 AM EST BITEWINGS - FOUR RADIOGRAPHIC IMAGES Routine 10/31/2019 3:00 AM EST MISSED APPOINTMENT Routine 09/29/2018 3: 00 AM EST COMPREHENSIVE ORAL EVALUATION - NEW OR ESTABLISHED PATIENT Routine 03/10/2018 3:00 AM EDT TOPICAL APPLICATION OF FLUORIDE VARNISH Routine 03/10/2018 3:00 AM EDT PROPHYLAXIS - ADULT Routine 03/10/2018 3 :00 AM EDT ORAL HYGIENE INSTRUCTIONS Routine 2017 3:00 AM EDT PANORAMIC RADIOGRAPHIC IMAGE Routine 03/10/2018 3:00 AM EDT INTRAORAL - COMPREHENSIVE SERIES OF RADIOGRAPHIC IMAGES Routine 03/10/2018 3:00 AM EDT INTRAORAL PHOTO Routine 03/10/2018 3:00 AM EDT INTRAORAL PHOTO Routine 03/10/2018 3:00 AM EDT INTRAORAL PHOTO Routine 03/10/2018 3:00 AM EDT INTRAORAL PHOTO Routine 03/10/2018 3:00 AM EDT 30 O COMPOSITE FILLING Routine 8 3:00 AM EDT 19 O COMPOSITE FILLING Routine 8 3:00 AM EDT 18 O COMPOSITE FILLING Routine 8 3:00 AM EDT 14 O COMPOSITE FILLING Routine 8 3:00 AM EDT 3 O COMPOSITE FILLING Routine 03/10/2018 3:00 AM EDT 15 LO COMPOSITE FILLING Routine 03/10/20 18 3:00 AM EDT 2 LO COMPOSITE FILLING Routine 8 3:00 AM EDT 31 O COMPOSITE FILLING Routine 8 3:00 AM EDT Visit Diagnoses Not on file Insurance [facility] PPO
--- OUTSIDE RECORDS SUMMARY | 2024-11-08 06:46 | XMS_ITS | CCD ---
Author Organization [facility] Address [address] [place] [address] Care Team Providers Care Well Service Pump Equipment Operator Name Role Phone Unavailable Primary Care Provider Unavailabl e Social History Tobacco Use Types Packs/Day Years Used Date Smoking Tobacco: Never Assessed Comments Unknown Sex and Gender Information Value Date Recorded Sex Assigned at Not on file Legal Sex Female 7:51 AM PST Gender Identity Not on file Sexual Orientation Not on file Plan of Treatment Not on file Procedures Procedure Name Priority Date/Time Associated Diagnosis Comments PROPHYLAXIS - ADULT Routine 09/14/2020 3:00 AM EST from Last 3 Months or Most Recently Relevant to Health Maintenance
--- OUTSIDE RECORDS SUMMARY | 2024-11-08 06:46 | XMS_ITS | Encounter Summary ---
Author Organization [facility] [place] [address] [place] [address] Care Team Providers Care Watch Inspector Name Role Phone Unavailable Primary Care Provider Unavailabl e Encounter Details Date Type Department Care Team (Late st Contact Info) Description 11/20/2019 Converted 13x Documents [facility] [address] [place] [address] Social History Tobacco Use Types Packs/Day Years Used Date Smoking Tobacco: Never Assessed Comments Unknown Sex and Gender Information Value Date Recorded Sex Assigned at Not on file Legal Sex Female 7:51 AM PST Gender Identity Not on file Sexual Orientation Not on file documented as of this encounter Plan of Treatment Not on file documented as of this encounter Visit Diagnoses Not on filedocumented in this encounter
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
--- OUTSIDE RECORDS SUMMARY | 2024-11-08 06:46 | XMS_ITS | Referral Summary ---
Author Organization [facility] [place] [address] [place] [address] Care Team Providers Care Seo Manager Name Role Phone Unavailable Primary Care Provider [...] Most Recently Relevant to Health Maintenance Insurance [facility] PPO
--- OUTSIDE RECORDS SUMMARY | 2024-11-08 06:46 | XMS_ITS | Continuity of Care Document ---
Author Organization [facility] Address [address] [place] [address] Care Team Providers Care Private Investigator Name Role Phone Unavailable Unavailable Unavailable Medications Medication Instructions Dosage Effective Dates (start - stop) Status Comments NEXPLANON 68 MG IMPLANT - Ac tive Procedures Procedure Date Level III OV New Urnls Dip Stick/tablet Rgnt Auto 2016 [address] [facility] [place] Cnt Urine 17 Culture Bct Isol&prsmptv Id [place] [facility] Microdil/agar Ea Multi Advance Directives Directive Yes / No Effective Date File Name No Information Encounters Encounter Description Practice Location Reason(s) For Visit Diagnoses Date Provider Providers Copied on Encounter Level III [facility], [address], [place], [place], [id number], [place] Cystitis, unspecified with hematuria 7 No Information Referring Provider: Abe Kebede, [address], [place], [address]. [facility], [address], [place], [place], [id number], [facility] Cystitis, unspecified with hematuria 7 Yuriy Fish. [address], [place], [address], . Family History Family Member Type Diagnosis Age At Onset Sister Problem (finding) Anxiety/Depression Mother Problem (finding) Kidney Stone Father Problem (finding) Anxiety/Depression Mother Problem (finding) Anxiety/Depression Aunt Problem (finding) Breast Cancer Grandmother Problem (finding) Breast Cancer Mother Problem (finding) Diabetes Payers Payer name Insurance type Covered alliance party ID Authoriza tioral(s) [place] Preferred Blue CI [id number] [facility] CI [id number] Social History Type Description Quantity Date Captured [...]
--- OUTSIDE RECORDS SUMMARY | 2024-11-08 06:46 | XMS_ITS | Continuity of Care Document ---
Author Organization [facility] ([facility], Main Office Address [address] [place] [address] Assessment Encounter Date Assessment Date Assessment LastModified by Organization Details LastModified Time 10/04/2024 10/04/2024 I met with Екатерина for a follow-up on her MDD and anxiety. SOPHIA-7 = 5 mild EPDS = 10 [email or web address] Not available 10/04/2024 22:17:42 Plan of Treatment Reminders Order Date Submit Date Provider Last Modified By Organization Details Last Modified Time Details Appointments Psychiatr ic Follow up 2024 05:00P Jessica Gao Not available Not available Not available Lab None recorded. Referral None recorded. Procedures None recorded. Surgeries None recorded. Imaging None recorded. Medication Orders sertralin e 100 mg tablet 2023 [id number], [address], [place], [place], [id number], 10/04/2024 22:21:09 hydroxyzi ne HCl 25 mg tablet 2023 024 [facility] #[id number], [address], [place], [place], [id number], 10/04/2024 22:21:08 Patient TargetsNo targets recorded. Patient Instructions Encounter Date Encounter Id Patient Instructions Last Modified By Organization Details Last Modified Time 10/04/2024 [id number] insomnia: care instructions [email or web address] Not available 10/04/2024 22:21:03 Reason for Referral None Reported. Problems Name Problem SNOMED Code Status Onset Date Resolution Date Notes Provider Name and Address Organization Details Recorded Time Depressive disorder 79702322 Active 2023 Juany Gao CNM, [facility] [address], [place], [address] 4 23:08:33 depression 97020686 Active 2023 Juany Gao CNM, [facility] [address], [place], [address] 4 23:12:14 Anxiety 46908275 Active 2023 Juany Gao CNM, [facility] [address], [place], [address] [place] [address] 23:12:45 Normal grief reaction 713976315 Active 2023 Juany Gao CNM, [facility] [address], [place], [address], [facility] 09:37:35 Moderate recurrent major depression 22927704 Active 2023 Juany Gao CNM, [facility] [address], [place], [address] 09:38:10 Generalized anxiety disorder 25843490 Active 2023 Juany Gao CNM, [facility] [address], [place], [address], [facility] 4 10:57:48 Insomnia 410855605 Active 2023 Juany Gao CNM, [facility] [address], [place], [address], [facility] 4 10:59:45 Problem Notes None recorded. Procedures Surgical History Date Name Laterality Status Provider Name and Address Organization Details Recorded Time procedure on kidney completed Margret Zapata [facility] 08/07/2024 17:55:41 Imaging Results None recorded. Procedure [...] Available Not Available Not Avai lable Vitals None Recorded Social History Question Answer Notes LastModified by Organizat ion Details LastModified Time Tobacco Smoking Status Former Smoker Margret Zapata null, [place] - [facility] 08/07/2024 17:55:00 What Is Your Level Of Caffeine Consumption? Occasional [email or web address] Information not available 08/07/2024 When Did You Quit Smoking? 1-5yearssincel morena [email or web address] Information not available 08/07/2024 Are There Any Guns Present In Your Home? Yes Information not available 08/07/2024 Do You Feel Safe In Your Home? Yes [email or web address] Information not available 08/07/2024 Do You Feel Stressed (tense, Restless, Nervous, Or Anxious, Or Unable To Sleep At Night)? [id number] [email or web address] Information not available 08/07/2024 Do You Use Any Illicit Or Recreational Drugs? No Information not available 08/07/2024 Sex: Unknown Functional Status Question Answer Note LastModified by Organization D etails LastModified Time What is your exercise level? None [email or web address] Information not available 08/07/2024 Mental Status None recorded. Family History Relationship Description Onset Age of this Age Resolved Age Notes LastModified by Organization Details LastModified Time Sister Borderline personality disorder [email or web address] Not available 2023 17:53:54 Father Posttraumati c stress disorder Not available 2023 17:53:59 Medical History Condition Response Anxiety Disorder Y Depression Y Gynecological History Statement/Question Response Date of Last Pap Smear Obstetrics History GPAL:G 1 P 0 0 1 0 Type Value Spontaneous 1 Total 1 Past Encounters Encounter ID Performer Location Encounter Start Date Encounter Closed Date Diagnosis/Indication Diagnosis SNOMED-CT Code Diagnosis ICD10 Code Diagnosis Note [id number] Juany Gao CNM, [facility]- Main Office [address] [place] [address] 09/06/2024 14:05:53 09/06/2024 21:21:19 Moderate recurrent major depression 03406491 F33.1 increase zoloft 150mg po daily. discussed continuing zoloft 150mg dailyrecom mend folic acidcontin ue therapy weekly with therapist from [place] q 2 weeksrecom mend group therapy with support internatio [facility] 4 weeks Normal grief reaction 27 1882591 F43.20 increase zoloft 150mg todayrecom mend getting involved with [facility] every 2 weeks Anxiety 50138382 F41.9 continue Buspar to 15mg twice a day Insomnia 905637681 G47.0 0 hydroxyzin e 25-50mg daily at bedtime [id number] Juany Gao CNM, [facility] Main Office [address] [place] [address] 10/04/2024 17:58:03 10/05/2024 11:38:29 Moderate recurrent major depression 41225160 F33.1 continue zoloft 150mg po daily.seema mmend folic acidcontin ue therapy weekly with a therapist from [place] q 3 weeksrecom mend group therapy with support internatio [facility] 2 months Normal grief reaction 27 5339035 F43.20 continue zoloft 150mg todayrecom mend getting involved with [facility] every 3 weeks Anxiety 86882218 F41.9 continue Buspar to 15mg twice a day Insomnia 965116819 G47.0 0 hydroxyzin e 25-50mg daily at bedtime Health Concerns Section Related Observation LastModified by Organization Detai ls LastModified Time None Recorded Concern Status LastModified by Organization Details LastModified Time None Recorded Payers Encounter Date Sequence Insurance Name Policy Number Policy Park Covered Member ID Park Member ID Guarantor Name 10/04/2024 1 [facility]: [facility] [id number] Charlene Delio Lizbet [id number] 2 Екатерина Cameron Notes Date Note Type Note Provider Name and Address Organization Details Recorded Time 10/04/2024 text/html Met with Ramon kaufman today [...] HI. Denies any AH or VH. Juany Gao CN[facility], [facility] [address], [place], [address], [facility] 10/04/2024 22:37:35 OBGyn Episode No OBEpisode recorded.
--- OUTSIDE RECORDS SUMMARY | 2024-11-08 06:46 | XMS_ITS | Encounter Summary ---
Author Organization [facility] [place] [address] [place] [address] Care Team Providers Care Devil Dog Name Role Phone Unavailable Primary Care Provider Unavailabl e Encounter Details Date Type Department Care Team (Late st Contact Info) Description 11/20/2019 Converted [facility] Chart [facility] [address] [place] [address] Social History Tobacco Use Types [...]
--- OUTSIDE RECORDS SUMMARY | 2024-11-08 06:47 | XMS_ITS | Continuity of Care Document ---
Author Organization [facility], Main Office Address [address] [place] [address] Assessment Encounter Date Assessment Date Assessment LastModified by Organization Details LastModified Time 08/07/2024 08/07/2024 Met with Екатерина for psychiatric evaluation GAD7=21 EPDS 24 [email or web address] Not available 08/08/2024 14:47:14 Plan of Treatment Reminders Order Date Submit Date Provider Last Modified By Organization Details Last Modified Time Details Appointments Psychiatr ic Follow up 2024 05:00P Jessica Gao Not available Not available Not available Lab None recorded. Referral None recorded. Procedures None recorded. Surgeries None recorded. Imaging None recorded. Medication Orders None recorded. Patient TargetsNo targets recorded. Patient InstructionsNo instructions recorded. Reason for Referral None Reported. Problems Name Problem SNOMED Code Status Onset Date Resolution Date Notes Provider Name and Address Organization Details Recorded Time Depressive disorder 55638912 Active 2023 Juany Gao CNM, [facility] [address], [place], [address], [facility] 23:08:33 depression 47677053 Active 2023 Ju[facility] Gao CNM, [facility] [address], [place], [address], [facility] 23:12:14 Anxiety 49609437 Active 2023 Juany Gao CNM, [facility] [address], [place], [address], [facility] 10/07/202 4 23:12:45 Normal grief reaction 439673091 Active 2023 Juany Gao CNM, [facility] [address], [place], [address], [facility] 4 09:37:35 Moderate recurrent major depression 76950807 Active 2023 Juany Gao CNM, [facility] [address], [facility] [address], [facility] 4 09:38:10 Generalized anxiety disorder 58719400 Active 2023 Juany Gao CNM, [facility] [address], [place], [address] 4 10:57:48 Insomnia 232527275 Active 2023 Juany Gao CNM, [facility] [address], [place], [address], [facility] 4 10:59:45 Problem Notes None recorded. Procedures Surgical History Date Name Laterality Status Provider Name and Address Organization Details Recorded Time procedure on kidney completed Margret Zapata [facility] 08/07/2024 17:55:41 Imaging Results None [...] Updated DateTime 08/07/2024 170.18 cm 32 kg/m2 41014.84 g 110 mm[Hg] 73 mm[Hg] Margretliz Zapata [facility] 17:51:34 Social History Question Answer Notes LastModified by Organizat ion Details LastModified Time Tobacco Smoking Status [facility] 17:55:00 What Is Your Level Of Caffeine Consumption? Occasional [email or web address] Information not available 08/07/2024 When Did You Quit Smoking? 1-5yearssincel morena [email or web address] Information not available 08/07/2024 Are There Any Guns Present In Your Home? Yes [email or web address] Information not available 08/07/2024 Do You Feel Safe In Your Home? Yes [email or web address] Information not available 08/07/2024 Do You Feel Stressed (tense, Restless, Nervous, Or Anxious, Or Unable To Sleep At Night)? ZV88129-1 [email or web address] Information not available 08/07/2024 Do You Use Any Illicit Or Recreational Drugs? No [email or web address] Information not available 08/07/2024 Sex: Unknown Functional Status Question Answer Note LastModified by Organization D etails LastModified Time What is your exercise level? None [email or web address] Information not available 08/07/2024 Mental Status None recorded. Family History Relationship Description Onset Age of this Age Resolved Age Notes LastModified by Organization Details LastModified Time Sister Borderline personality disorder Not available 2023 17:53:54 Father Posttraumati c stress disorder [email or web address] Not available 2023 17:53:59 Medical History Condition Response Anxiety Disorder Y Depression Y Gynecological History Statement/Question Response Date of Last Pap Smear Obstetrics History GPAL:G 1 P 0 0 1 0 Type Value Spontaneous 1 Total 1 Past Encounters Encounter ID Performer Location Encounter Start Date Encounter Closed Date Diagnosis/Indication Diagnosis SNOMED-CT Code Diagnosis ICD10 Code Diagnosis Note [id number] Juany Gao CNM, [facility]- Main Office [address] [place] [address] 08/07/2024 17:44:51 08/08/2024 18:34:23 Anxiety 41687230 F41.9 started on Buspar 10mg twice a day today by Dr Torres Normal grief reaction 27 1174212 F43.20 continue zoloft 100mg todayrecom mend getting involved with [facility] Moderate r ecurrent major depression 08857357 F33.1 continue zoloft 100mg po dailyconti nue therapy weekly with therapist from [facility] group therapy with support internatio [facility] h[facility] testing performedr next week for results of genesight and follow up on buspar Health Concerns Section Related Observation LastModified by Organization Detai ls LastModified Time None Recorded Concern Status LastModified by Organization Details LastModified Time None Recorded Payers Encounter Date Sequence Insurance Name Policy Number Policy Park Covered Member ID Park Member ID Guarantor Name 08/07/2024 1 [place] [employer] [place] [id number] Ashely Cameron [id number] 2 Екатерина Cameron Notes Date Note Type Note Provider Name and Address Organization Details Recorded Time 08/07/2024 text/html Met with Ramon kaufman for psychiatric evaluation. Екатерина had an IUFD at 20 weeks gestation last week. Stuggling with increase in anxiety/depression/ grief. Family all lives in [place] so feeling very alone. Due to get in 2 [place]. Екатерина has a history of anxiety and depression. She is currently on Zoloft 100mg, and an Rx of Buspar was sent out by Dr Torres today. Ashely has previously had medication trials on Effexor, Prozac, celexa, Zoloft, and Lexapro. She has a therapist that she has seen for years in [place], and plans to continue care with this [...] her fianc? ? ? Josh and mike brennan Arora (4 years old). 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 List her support system is Josh, her mom, her sisters and her aunt.Family psychiatric history? F ather? P TSD, narcissistic, borderline personality disorder, drug addiction? m eth., Sister? b orderline personality disorder. Mother? a nxiety, depression. Completed suicides within the family paternal grandfather, and paternal uncle. Juany Gao, AMENA, PMHNP- [address], [place], [address], [facility] 08/08/2024 18:08:25 OBGyn Episode No OBEpisode recorded.
--- OUTSIDE RECORDS SUMMARY | 2024-11-08 06:47 | XMS_ITS | Data Portability ---
Author Organization [place] - [facility] Address [address] [place] [address] Assessment Encounter Date Assessment Date Assessment LastModified by Organization Details LastModified Time 11/11/2023 11/11/2023 22yo female presents with low back pain radiating down both legs with numbness and tingling Reyna Cameron describes pain in the left lower back radiating down her lateral leg to the top of the foot with numnbess and tingling in her great toe. Rated 7/10 today, 10/10 at worst. 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 Her symptoms have been present since 2018 but are now worsening. Xrays as per my interpretation: AP and lateral films of the lumbar spine on 11/11/23 demonstrate straightening of the normal lordosis but preserved disc space height and no obvious fractures or lesions to my eye. HIps are normal in alignment with no degenerative changes. DIAGNOSIS: Lumbar Radiculopathy PLAN: - Formal PT x 6 weeks - Medrol dosepack today. NOt diabetic - f/u 8 weeks. If not improving, will order MRI. She may have herniated disc. At the moment, she does not have neurological deficits Not available 11/11/2023 16:48:17 12/03/2023 12/03/2023 ASSESSMENT Signs and symptoms consistent with decreased hip/trunk strength and endurance, difficulty with prolonged sitting, difficulty bending/lifting, and difficulty with her desired activities secondary to acute (and resolving) left L4 discogenic LBP with radiation into the L4 dermatome, significantly improved following oral steroids. She will benefit from skilled PT to address the aforementioned impairments, functional limitations, and disabilities in order to restore her prior level of functioning. PLAN Therapeutic exercise, therapeutic activities, manual therapy, patient education, neuromuscular reeducation, modalities (electrical stimulation, hot/cold, dry needling), gait training. GOALS Short Term (To be accomplished in 3 weeks) 1. Demonstrate appropriate lifting techniques 2. Improve right hip abduction MMT to 4/5 or greater Longterm (To be accomplished in 6 weeks) 1. Reyna will report being able to sit for at least an hour without worsening her back/leg pain 2. Demonstrate ability to lift at least 30# from floor to chest height to simulate lifting her step son 3. Improve bilateral hip abduction MMT to 5/5 Rehab Potential - Excellent Plan of Care - for a total of 3 visits over a 6 week period Patient was informed of the above plan and agreed to it. Criteria for D/C transition - attains max rehab potential, and or further PT not indicated Patient/Family participated in planning treatment plan, goals and patient/family education - Evaluation findings, PT POC, initial HEP (see exercise document), prognosis Patient/family member received information about rehab plan and potential benefits and risk of therapy services. Patient's personal goals identified and taken into consideration in development of plan. Patient/family verbalizes understanding and demonstrates proper technique for home exercise program. Provider Certification/Pre scription - This is to certify that the above named patient, who is under my care, requires skilled physical therapy services as described in the above treatment plan. I further certify that the services outlined in this plan are skilled and medically necessary. I have reviewed this plan for rehabilitation services and I recommend and prescribe these services to meet the goals stated above. [email or web address] Not available 12/03/2023 12:59:49 Plan of Treatment Reminders Order Date Submit Date Provider Last Modified By Organization Details Last Modified Time Details Appointments None recorded. Lab None recorded. Referral physical therapist referral - PHYSICAL THERAPY Lumbar Spine-Eval uate and Rivbf1t a week for 6-8 weeks 2023 024 [email or web address] Not available 14:57:40 Procedures None recorded. Surgeries None recorded. Imaging XR, lumbar spine 2023 024 deanna Loza, [facility] [place], [address], 4 16:47:32 XR, pelvis 2023 024 [email or web address] Denia, [address] [place], [address], 16:47:37 Medication Orders Medrol (Jack) 4 mg tablets in a dose pack 2023 024 [email or web address] [facility], [address], [place], [address], 16:11:50 Patient TargetsNo targets recorded. Patient Instructions Encounter Date Encounter Id Patient Instructions Last Modified By Organization Details Last Modified Time 11/11/2023 [id number] We reviewed the nature of their condition as well as conservative treatment and activity level modification. We reviewed exercises and discussed avoidance of repetitive impacting activities. We recommend the use of rest, ice and elevation as needed for symptom improvement. We discussed options including observation, topicals, anti-inflammatori es, therapy, injections, surgery. [email or web address] Not available 11/11/2023 09:56:57 Reason for Referral Physical Therapist Referral for Low back pain PHYSICAL THERAPY Lumbar Spine-Evaluate and [email or web address] a week for 6-8 weeks Referring Physician: Brigida Walker, Pain Management, Encounter Date: 11/11/2023 Results Created Date Observation Date Name Description Value Unit Range Abnormal Flag Note LastModifiedBy Organization Detail LastModifiedTime 11/11/19 24 XR, lumba r spine No observ ation record ed. [email or web address] [facility] [address] [place], [address], 11/11/2023 16:47:32 11/11/19 24 XR, pelvi s No observ ation record ed. [email or web address] [facility] [address] [place], [address], 11/11/2023 16:47:36 Result Notes None recorded. Problems Name Problem SNOMED Code Status Onset Date Resolution Date Notes Provider Name and Address Organization Details Recorded Time Low back pain 292409793 Active 024 Nicolle Walden [place], [place] - -[facility] 11/11/2023 15:18:08 Problem Notes None recorded. Procedures Surgical History Date Name Laterality Status Provider Name and Address Organization Details Recorded Time 4 95465: Therapeutic Exercise completed Yeison Elise, PT, DPT, OCS, OMT-C [address] [place] [address], [phone], [facility] - [facility] 12/03/2023 12:56:00 4 OT/PT Time In/Out completed Yeison Elise PT, DPT, OCS, OMT-C [address] [place] [address], [phone], [facility] - -[facility] 12/03/2023 12:56:03 4 [id number] PT New Eval, Low Complexity completed Yeison Elise, PT, DPT, OCS, OMT-C [address] [place] [address], [phone], [facility] - -[facility] 12/03/2023 12:15:13 Imaging Results Imaging Date Name Status LastModified by Organiz ation Details LastModified Time 11/11/2023 XR, lumbar spine completed [email or web address], [address], 11/11/2023 16:47:32 11/11/2023 XR, pelvis completed [email or web address] [address], [address], 11/11/2023 16:47:36 Procedure Notes None recorded. Medical Equipment None Reported. Medications Name Sig Start Date Stop Date Status Note LastModified by Organization Details LastModified Time fluoxetine 40 mg capsule TAKE 2 CAPSULES BY MOUTH EVERY DAY active Not Available Not Available No t Available venlafaxine ER 37.5 mg capsule,extend ed release 24 hr TAKE 1 CAPSULE BY MOUTH EVERY DAY active Not Available Not Available No t Available venlafaxine ER 75 mg capsule,extend ed release 24 hr TAKE 1 CAPSULE BY MOUTH EVERY DAY active Not Available Not Available No t Available cetirizine 10 mg tablet TAKE 1 TABLET BY MOUTH EVERY DAY active Not Available Not Available No t Available methylpredniso lone 4 mg tablets in a dose pack TAKE DIRECTED active Not Available Not Available No t Available fluoxetine 20 mg capsule TAKE 1 CAPSULE BY MOUTH EVERY DAY active Not Available Not Available No t Available fluticasone propionate 50 mcg/actuation nasal spray,suspensi on SPRAY 1 SPRAY INTO EACH NOSTRIL EVERY DAY active Not Available Not Available No t Available naproxen 500 mg tablet TAKE 1 TABLET (500 MG TOTAL) BY MOUTH EVERY 12 (TWELVE) HOURS NEEDED (PAIN) active Not Available Not Available No t Available amoxicillin 875 mg-potassium clavulanate 125 mg tablet TAKE 1 TABLET BY MOUTH EVERY 12 HOURS FOR 7 DAYS active Not Available Not Available No t Available paroxetine ER 25 mg tablet,extende d release 24 hr TAKE 1 TABLET BY MOUTH EVERY DAY IN THE MORNING active Not Available Not Available No t Available paroxetine ER 37.5 mg tablet,extende d release 24 hr TAKE 1 TABLET BY MOUTH EVERY DAY IN THE MORNING active Not Available Not Available No t Available azithromycin 500 mg tablet TAKE 1 TABLET BY MOUTH EVERY DAY active Not Available Not Available No t Available cyclobenzaprin e 5 mg tablet TAKE 1 TABLET BY MOUTH EVERY 8 HOURS NEEDED FOR MUSCLE SPASMS. 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 Mental Status None recorded. Family History Nothing Reported. Medical History No medical history recorded. Gynecological HistoryNo gynecological history recorded. Obstetrics History GPAL:G 0 P 0 0 0 0 Past Encounters Encounter ID Performer Location Encounter Start Date Encounter Closed Date Diagnosis/Indication Diagnosis SNOMED-CT Code Diagnosis ICD10 Code Diagnosis Note [id number] DEMETRIO CORREIA [address] [place] [address] 11/11/2023 14:39:15 11/11/2023 16:06:02 Low back pain 321075958 M54.50 [id number] Yeison Elise, PT, DPT, OCS, OMT-C Therapy[facility] [address] [address] 12/03/2023 12:11:32 12/03/2023 12:57:14 Low back pain 545485962 M54.50 Pain radia ting to left leg 505374601 M79.605 Health Concerns Section Related Observation LastModified by Organization Detai ls LastModified Time None Recorded Concern Status LastModified by Organization Details LastModified Time None Recorded Advance Directives Directive None Recorded Payers Encounter Date Sequence Insurance Name Policy Number Policy Park Covered Member ID Pakr Member ID Guarantor Name 11/11/2023 1 [facility] [id number] Charlene Delio Lizbet [id number] 2 Екатерина Cameron 12/03/2023 1 [facility]: [facility] [id number] Charlene Delio Lizbet [id number] 2 Екатерина Cameron Notes Date Note Type Note Provider Name and Address Organization Details Recorded Time 12/03/2023 text/html CLINICAL IMPRESSION- This patient is a 22 y/o {{male female*}} who presents with c/o of {{gradual* sudden i nsidious traumatic chronic post-surgic al}} and worsening lower back pain with radiation to the left dorsal surface of the foot. Recent treatment includes a dose pack of steroids that has significantly improved her symptoms; prior to treatment, she notes her symptoms would worsen after 20-30' of sitting/driving, lifting her 30# step-son, bending forward, and sitting > 20'. Her symptoms have been present for 4-5 years and were manageable with OTC medication and reports performing stretching (butterfly stretch) that would help alleviate her symptoms. Reyna reports that her symptoms worsened several months ago without trauma or injury. Her leg and foot symptoms are described as falling asleep but does not endorse any weakness in her leg. 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 Hobbies/pursuits include caring for her three year old step-son and spend time with her family. Yeison Elise, PT, DPT, OCS, OMT-C [address] [place], [address], [place] - -[facility] 12/03/2023 13:01:07 OBGyn Episode No OBEpisode recorded.
--- OUTSIDE RECORDS SUMMARY | 2024-11-08 06:47 | XMS_ITS | Continuity of Care Document ---
Author Organization [facility], Main Office Address [address] [place] [address] Assessment Encounter Date Assessment Date Assessment LastModified by Organization Details LastModified Time 09/06/2024 09/06/2024 Met with Екатерина for follow-up on her MDD and anxiety. SOPHIA-7 = 9 moderate EPDS = 13 [email or web address] Not available 09/06/2024 21:00:32 Plan of Treatment Reminders Order Date Submit Date Provider Last Modified By Organization Details Last Modified Time Details Appointments Psychiatr ic Follow up 2024 05:00P Jessica Gao Not available Not available Not available Lab None recorded. Referral None recorded. Procedures None recorded. Surgeries None recorded. Imaging None recorded. Medication Orders hydroxyzi ne HCl 25 mg tablet 2023 [id number], [address], [place], [place], [id number], 09/06/2024 21:12:58 buspirone 15 mg tablet 2023 [id number], [address], [place], [place], [id number], 09/06/2024 21:12:58 sertralin e 150 mg capsule 2023 [id number], [address], [place], [place], [id number], 09/06/2024 21:12:56 Patient TargetsNo targets recorded. Patient Instructions Encounter Date Encounter Id Patient Instructions Last Modified By Organization Details Last Modified Time 09/06/2024 [id number] insomnia: care instructions [email or web address] Not available 09/06/2024 21:12:51 Reason for Referral None Reported. Problems Name Problem SNOMED Code Status Onset Date Resolution Date Notes Provider Name and Address Organization Details Recorded Time Depressive disorder 49372863 Active 2023 Juany Gao CNM, [facility] [address], [place], [address] 23:08:33 depression 06791980 Active 2023 Juany Gao CNM, [facility] [address], [place], [address] 23:12:14 Anxiety 69767569 Active 2023 Juany Gao CNM, [facility] [address], [place], [address] 23:12:45 Normal grief reaction 324579838 Active 2023 Juany Gao CNM, [facility] [address], [place], [address] 09:37:35 Moderate recurrent major depression 65670377 Active 2023 Juany Gao CNM, [facility] [address], [place], [address], [facility] 09:38:10 Generalized anxiety disorder 34781457 Active 2023 Juany Gao CNM, [facility] [address], [place], [address], [facility] 10:57:48 Insomnia 091147729 Active 2023 Juany Gao CNM, [facility]- [address], [place], [address], [place] [facility] 10:59:45 Problem Notes None recorded. Procedures Surgical History Date Name Laterality Status Provider Name and Address Organization Details Recorded Time procedure on kidney completed Margret Zapata [facility] 08/07/2024 17:55:41 Imaging Results None recorded. Procedure [...] Updated DateTime 09/06/2024 170.18 cm 31.3 kg/m2 74947.47 g 121 mm[Hg] 81 mm[Hg] Margret Zapata [facility] 14:14:34 Social History Question Answer Notes LastModified by Organizat ion Details LastModified Time Tobacco Smoking Status [facility] 08/07/2024 17:55:00 What Is Your Level Of Caffeine Consumption? Occasional [email or web address] Information not available 08/07/2024 When Did You Quit Smoking? 1-5yearssincel astcigarette [email or web address] Information not available 08/07/2024 Are There Any Guns Present In Your Home? Yes [email or web address] Information not available 08/07/2024 Do You Feel Safe In Your Home? Yes Information not available 08/07/2024 Do You Feel Stressed (tense, Restless, Nervous, Or Anxious, Or Unable To Sleep At Night)? [id number] [email or web address] Information not available 08/07/2024 Do You Use Any Illicit Or Recreational Drugs? No [email or web address] Information not available 08/07/2024 Sex: Unknown Functional Status Question Answer Note LastModified by Organization D etails LastModified Time What is your exercise level? None [email or web address] Information not available 08/07/2024 Mental Status None recorded. Family History Relationship Description Onset Age of this Age Resolved Age Notes LastModified by Organization Details LastModified Time Sister Borderline personality disorder [email or web address] Not available 2023 17:53:54 Father Posttraumati c stress disorder [email or web address] Not available 2023 17:53:59 Medical History Condition Response Anxiety Disorder Y Depression Y Gynecological History Statement/Question Response Date of Last Pap Smear Obstetrics History GPAL:G 1 P 0 0 1 0 Type Value Spontaneous 1 Total 1 Past Encounters Encounter ID Performer Location Encounter Start Date Encounter Closed Date Diagnosis/Indication Diagnosis SNOMED-CT Code Diagnosis ICD10 Code Diagnosis Note [id number] Juany Gao CNM, [facility]- Main Office [address] [place] [address] 08/07/2024 17:44:51 08/08/2024 18:34:23 Anxiety 87626427 F41.9 started on Buspar 10mg twice a day today by Dr Bear Normal grief reaction 27 0115439 F43.20 continue zoloft 100mg todayrecom mend getting involved with [facility] Moderate r ecurrent major depression 46667635 F33.1 continue zoloft 100mg po dailyconti nue therapy weekly with therapist from [facility] next week for results of genesight and follow up on buspar [id number] Juany Gao CNM, [facility] Main Office [address] [place] [address] 08/16/2024 10:21:24 08/16/2024 11:37:51 Moderate recurrent major depression 43813731 F33.1 Genesight results reviewed and shared decision making used to make plan of medication changesCon tinue zoloft 100mg po daily. discussed continuing zoloft vs switching to pristiq. will continue zoloft at present timerecomm end folic acidcontin ue therapy weekly with [facility] Anxiety 84360423 F41.9 increase Buspar to 15mg twice a day, may take mid-day dose if needed Insomnia 564041960 G47.0 0 Start hydroxyzin e 25-50mg daily at bedtime Normal grief reaction 27 4809842 F43.20 continue zoloft 100mg todayrecom mend getting involved with [facility] nue weekly therapy [id number] Juany Gao CNM, [facility] Main Office [address] [place] [address] 09/06/2024 14:05:53 09/06/2024 21:21:19 Moderate recurrent major depression 74927121 F33.1 increase zoloft 150mg po daily. discussed continuing zoloft 150mg dailyrecom mend folic acidcontin ue therapy weekly with therapist from [facility] 2 weeksrecom mend group therapy with support intern[facility] 4 weeks Normal grief reaction 27 6662427 F43.20 increase zoloft 150mg todayrecom mend getting involved with Share[facility] nue therapy every 2 weeks Anxiety 90589833 F41.9 continue Buspar to 15mg twice a day Insomnia 108258678 G47.0 0 hydroxyzin e 25-50mg daily at bedtime Health Concerns Section Related Observation LastModified by Organization Detai ls LastModified Time None Recorded Concern Status LastModified by Organization Details LastModified Time None Recorded Payers Encounter Date Sequence Insurance Name Policy Number Policy Park Covered Member ID Park Member ID Guarantor Name 09/06/2024 1 [facility] [id number] Charlene Somers [id number] 2 Екатеирна Cameron Notes Date Note Type Note Provider Name and Address Organization Details Recorded Time 09/06/2024 text/html Met with Ramon kaufman today [...] nice going home and seeing family Juany Gao, AMENA, PMHNP- [address], [place], [address], [facility] 09/06/2024 21:20:53 OBGyn Episode No OBEpisode recorded.
== END 2024-11-01 13:34 | disposition home or self-care (01) ==
PROVIDERS: Emergency Provider Nurse Practitioner
DX: J32.9 Chronic sinusitis, unspecified (principal); Z87.891 Personal history of nicotine dependence
CPT/HCPCS: 99213; G0463

== ENCOUNTER 2024-11-17 17:00 | Outpatient (RCR) | payer BC, SELFPAY ==
[2024-11-17 17:44] LABS: Beta HCG Quantitative 48.26 mIU/ML
== END 2024-11-17 17:01 | disposition home or self-care (01) ==
LOC: ANHLAB 17:00
PROVIDERS: Visit Provider Obstetrics & Gynecology
DX: N92.6 Irregular menstruation, unspecified (principal)
CPT/HCPCS: 36415; 84702

== ENCOUNTER 2024-11-19 11:21 | Outpatient (RCR) | payer BC, MEDICAID, SELFPAY ==
[2024-11-19 12:14] LABS: Beta HCG Quantitative 138.28 mIU/ML
== END 2025-02-17 23:59 | disposition home or self-care (01) ==
LOC: ANHOBOP 11:21
PROVIDERS: Visit Provider Obstetrics & Gynecology
DX: N92.6 Irregular menstruation, unspecified (principal)
CPT/HCPCS: 36415; 84702

== ENCOUNTER 2024-12-23 12:35 | Outpatient (CLI) | payer BC, OTHER, SELFPAY ==
--- OUTSIDE RECORDS SUMMARY | 2024-12-23 12:38 | XMS_ITS | Data Portability ---
Author Organization [facility], Telehealth (patients home) Address [address] [place] [address] Assessment Encounter Date Assessment Date Assessment LastModified by Organization Details LastModified Time 08/07/2024 08/07/2024 Met with Екатерина for psychiatric evaluation GAD7=21 EPDS 24 Not available 08/08/2024 14:47:14 08/16/2024 08/16/2024 met with Екатерина to follow up on genesight results. and make medication changes as needed EPDS 25 GA7=21 [email or web address] Not available 08/16/2024 11:03:16 09/06/2024 09/06/2024 Met with Екатерина for follow-up on her MDD and anxiety. SOPHIA-7 = 9 moderate EPDS = 13 [email or web address] Not available 09/06/2024 21:00:32 10/04/2024 10/04/2024 I met with Екатерина for a follow-up on her MDD and anxiety. SOPHIA-7 = 5 mild EPDS = 10 [email or web address] Not available 10/04/2024 22:17:42 12/06/2024 12/06/2024 Met with Екатерина today for follow up on mdd, anxiety and grief reaction. SOPHIA 5 EPDS 11 [email or web address] Not available 12/06/2024 18:40:48 Plan of Treatment Reminders Order Date Submit Date Provider Last Modified By Organization Details Last Modified Time Details Appointments Psychiatr ic Follow up 2024 05:00P Jessica Gao Not available Not available Not available Lab None recorded. Referral None recorded. Procedures None recorded. Surgeries None recorded. Imaging None recorded. Medication Orders sertralin e 100 mg tablet 2023 [id number], [address], [place], [place], [id number], 10/04/2024 22:21:09 hydroxyzi ne HCl 25 [facility] tablet 2023 [facility], [address], [place], [place], [id number], 10/04/2024 22:21:08 hydroxyzi ne HCl 25 mg tablet 2023 [place] [facility]67867, [address], [place], [place], [id number], 09/06/2024 21:12:58 buspirone 15 mg tablet 2023 024 [place] [facility]29453, [address], [place], [place], [id number], 09/06/2024 21:12:58 sertralin e 150 mg capsule 2023 024 [place] [facility]76, [address], [place], [place], [id number], 09/06/2024 21:12:56 hydroxyzi ne HCl 25 mg tablet 2023 024 [place] [facility]147, [address], [place], [place], [id number], 08/16/2024 11:02:24 buspirone 15 mg tablet 2023 024 [place] [facility], [address], [place], [place], [id number], 08/16/2024 11:02:23 Patient TargetsNo targets recorded. Patient Instructions Encounter Date Encounter Id Patient Instructions Last Modified By Organization Details Last Modified Time 08/16/2024 [id number] insomnia: care instructions [email or web address] Not available 08/16/2024 11:02:16 09/06/2024 [id number] insomnia: care instructions Not available 09/06/2024 21:12:51 10/04/2024 [id number] insomnia: care instructions Not available 10/04/2024 22:21:03 Reason for Referral None Reported. Problems Name Problem SNOMED Code Status Onset Date Resolution Date Notes Provider Name and Address Organization Details Recorded Time Depressive disorder 94237538 Active 2023 Juany Gao CNM, [facility] [address], [place], [address], [facility] 23:08:33 depression 54337078 Active 2023 Juany Gao CNM, [facility] [address], [place], [address], [facility] 23:12:14 Anxiety 34080334 Active 2023 Juany Gao CNM, [facility] [address], [place], [address], [facility] 23:12:45 Normal grief reaction 892563010 Active 2023 [facility], [facility] [address], [place], [address], [facility] 09:37:35 Moderate recurrent major depression 83491252 Active 2023 Juany Gao CNM, [facility] [address], [place], [address], [facility] 4 09:38:10 Generalized anxiety disorder 98996442 Active 2023 Juany Gao CNM, [facility] [address], [place], [address], [facility] 10:57:48 Insomnia 781876139 Active 2023 Juany Gao, CNJessica, PMHNP- [address], [place], [address], [facility] 10:59:45 Problem Notes None recorded. Procedures Surgical History Date Name Laterality Status Provider Name and Address Organization Details Recorded Time procedure on kidney completed Margret Zapata [facility] 08/07/2024 17:55:41 Imaging Results None [...] Not Available Not Available No t Available prednisone 5 mg tablets in a dose pack TAKE 6 TABLETS BY MOUTH ON DAY 1, THEN REDUCE BY 1 TABLET DAILY OVER THE NEXT 5 DAYS (6,5,4,3, 2,1) active Not Available Not Available No t Available ibuprofen 600 mg tablet TAKE 1 TABLET BY MOUTH EVERY 6 HOURS NEEDED FOR PAIN active Not Available Not Available No t Available Zoloft 100 mg tablet Take 1.5 tablets every day by oral route. 2024 active Not Available Not Available Not Avai lable ondansetron 4 mg disintegrating tablet DISSOLVE 1 [...] tablet twice a day by oral route. 2024 active Not Available Not Available Not Avai [...] Updated DateTime 08/07/2024 170.18 cm 32 kg/m2 22090.84 g 110 mm[Hg] 73 mm[Hg] Margret Zapata [facility] 4 17:51:34 Date Recorded Body height Body mass index (BMI) Body weight Systolic blood pressure Diastolic blood pressure Provider Name and Address Organization Details Last Updated DateTime 08/16/2024 170.18 cm 31.6 kg/m2 64709.66 g 115 mm[Hg] 76 mm[Hg] Margret Zapata [facility] 4 10:27:57 Date Recorded Body height Body mass index (BMI) Body weight Systolic blood pressure Diastolic blood pressure Provider Name and Address Organization Details Last Updated DateTime 09/06/2024 170.18 cm 31.3 kg/m2 64651.47 g 121 mm[Hg] 81 mm[Hg] Margret Zapata [facility] 4 14:14:34 Date Recorded Body height Body mass index (BMI) Body weight Systolic blood pressure Diastolic blood pressure Provider Name and Address Organization Details Last Updated DateTime 12/06/2024 170.18 cm 32.6 kg/m2 93941.21 g 110 mm[Hg] 74 mm[Hg] Margret Zapata [facility] 5 18:11:22 Social History Question Answer Notes LastModified by Organizat ion Details LastModified Time Tobacco Smoking Status Former Smoker Margret Zapata [facility] 08/07/2024 17:55:00 What Is Your Level Of Caffeine Consumption? Occasional [email or web address] Information not available 08/07/2024 When Did You Quit Smoking? 1-5yearssincel morena [email or web address] Information not available 08/07/2024 Are There Any Guns Present In Your Home? Yes [email or web address] Information not available 08/07/2024 Do You Feel Safe In Your Home? Yes [email or web address] Information not available 08/07/2024 Do You Feel Stressed (tense, Restless, Nervous, Or Anxious, Or Unable To Sleep At Night)? MB83258-5 [email or web address] Information not available 08/07/2024 Do You Use Any Illicit Or Recreational Drugs? No [email or web address] Information not available 08/07/2024 Sex: Unknown Functional Status Question Answer Note LastModified by Organization D etails LastModified Time What is your exercise level? None [email or web address] Information not available 08/07/2024 Mental Status None recorded. Family History Relationship Description Onset Age of this Age Resolved Age Notes LastModified by Organization Details LastModified Time Sister Borderline personality disorder [email or web address] Not available 2023 17:53:54 Father Posttraumati c stress disorder [email or web address] Not available 2023 17:53:59 Medical History Condition Response Anxiety Disorder Y Depression Y Gynecological History Statement/Question Response Date of Last Pap Smear Obstetrics History GPAL:G 2 P 0 0 1 0 Type Value Spontaneous 1 Total 2 Past Encounters Encounter ID Performer Location Encounter Start Date Encounter Closed Date Diagnosis/Indication Diagnosis SNOMED-CT Code Diagnosis ICD10 Code Diagnosis Note [id number] Juany Gao CNM, PMHNP- Main Office [address] [place] [address] 08/07/2024 17:44:51 08/08/2024 18:34:23 Anxiety 56330917 F41.9 started on Buspar 10mg twice a day today by Dr Torres Normal grief reaction 27 8434034 F43.20 continue zoloft 100mg todayrecom mend getting involved with [facility] Moderate r ecurrent major depression 33616056 F33.1 continue zoloft 100mg po dailyconti nue therapy weekly with therapist from [facility] group therapy with support internatio nalGenesig ht testing performedr next week for results of genesight and follow up on buspar [id number] Juany Gao CNM, [facility] Main Office [address] [facility] [place] [address] 08/16/2024 10:21:24 08/16/2024 11:37:51 Moderate recurrent major depression 76416311 F33.1 Genesight results reviewed and shared decision making used to make plan of medication changesCon tinue zoloft 100mg po daily. discussed continuing zoloft vs switching to pristiq. will continue zoloft at present timerecomm end folic acidcontin ue therapy weekly with [facility] from [facility] Anxiety 02418771 F41.9 increase Buspar to 15mg twice a day, may take mid-day dose if needed Insomnia 728217798 G47.0 0 Start hydroxyzin e 25-50mg daily at bedtime Normal grief reaction 27 4701687 F43.20 continue zoloft 100mg todayrecom mend getting involved with Shareconti nue weekly therapy [id number] Juany Gao CNM, [facility] Main Office [address] [facility] [place] [address] 09/06/2024 14:05:53 09/06/2024 21:21:19 Moderate recurrent major depression 73636923 F33.1 increase zoloft 150mg po daily. discussed continuing zoloft 150mg dailyrecom mend folic acidcontin ue therapy weekly with therapist from [place] q 2 weeksrecom mend group therapy with support internatio [facility] 4 weeks Normal grief reaction 27 2623334 F43.20 increase zoloft 150mg todayrecom mend getting involved with Shareconti nue therapy every 2 weeks Anxiety 03237050 F41.9 continue Buspar to 15mg twice a day Insomnia 184001451 G47.0 0 hydroxyzin e 25-50mg daily at bedtime [id number] Juany Gao CNM, [facility] Main Office [address] [place] [address] 10/04/2024 17:58:03 10/05/2024 11:38:29 Moderate recurrent major depression 33339286 F33.1 continue zoloft 150mg po daily.seema mmend folic acidcontin ue therapy weekly with a therapist from [place] q 3 weeksrecom mend group therapy with support internatio nalrtc 2 months Normal grief reaction 27 5089482 F43.20 continue zoloft 150mg todayrecom mend getting involved with Shareconti nue therapy every 3 weeks Anxiety 14169969 F41.9 continue Buspar to 15mg twice a day Insomnia 396230634 G47.0 0 hydroxyzin e 25-50mg daily at bedtime [id number] Juany Gao, AMENA, PMHNP- Main Office [address] [place] [address] 12/06/2024 18:01:07 12/07/2024 10:24:28 Moderate recurrent major depression 62238918 F33.1 Екатерина is and will follow up in 2nd trimesterC ontinue zoloft 150mg po daily.seema mmend folic acidcontin ue therapy weekly with a therapist from [place] q 3 weeksrecom mend group therapy with support internatio nalrtc 3 months Normal grief reaction 27 5625055 F43.20 Екатерина recently found out she was approx 6 weeks and will plan to follow up at next visit at around the same gestation as her previous losscontin ue zoloft 150mg todayconti nue therapy every 3 weeks Anxiety 01666713 F41.9 continue Buspar to 15mg twice a day Health Concerns Section Related Observation LastModified by Organization Detai ls LastModified Time None Recorded Concern Status LastModified by Organization Details LastModified Time None Recorded Advance Directives Directive None Recorded Payers Encounter Date Sequence Insurance Name Policy Number Policy Park Covered Member ID Park Member ID Guarantor Name 08/07/2024 1 [place] [id number] Ashely Cameron [id number] 2 Екатерина Cameron 08/16/2024 1 [place] [facility] [id number] Charlene Somers [id number] 2 Екатерина Cameron 09/06/2024 1 [place] [facility] [id number] Charlene Somers [id number] 2 Екатерина Cameron 10/04/2024 1 [facility]: [employer] [id number] Charlene Somers [id number] 2 Екатерина Cameron 12/06/2024 1 [facility] [id number] Charlene Somers [id number] 2 Екатерина Cameron Notes Date Note Type Note Provider Name and Address Organization Details Recorded Time 08/07/2024 text/html Met with Ramon kaufman for psychiatric evaluation. Екатерина had an IUFD at 20 weeks gestation last week. Stuggling with increase in anxiety/depression/ grief. Family all lives in [place] so feeling very alone. Due to get in 2 week to [facility]. Екатерина has a history of anxiety and depression. She is currently on Zoloft 100mg, and an Rx of Buspar was sent out by Dr Torres today. Ashely has previously had medication trials on Effexor, Prozac, celexa, Zoloft, and Lexapro. She has a therapist that she has seen for years in [place], and plans to continue care with this [...] or visual hallucinations.Reyna fernandez lives with her fianc Josh and mike Arora (4 years old). 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 List her support system is Josh, her mom, her sisters and her aunt.Family psychiatric history Father PTSD, narcissistic, borderline personality disorder, drug addiction meth., Sister borderline personality disorder. Mother anxiety, depression. Completed suicides within the family paternal grandfather, and paternal uncle. Juany Gao CNM, [facility]- [address], [place], [address], [facility] 08/08/2024 18:08:25 08/16/2024 text/html Met with Ramon [...] proceeding with the wedding Juany Gao CNM, [facility]- [address], [place], [address], [facility] 08/16/2024 11:37:45 09/06/2024 text/html Met with Ramon [...] home and seeing family Juany Gao CNM, [facility]- [address], [place], [address], [facility] 09/06/2024 21:20:53 10/04/2024 text/html Met with Ramon [...] any AH or VH. Juany Gao CNM, [facility]- [address], [place], [address], [facility] 10/04/2024 22:37:35 12/06/2024 text/html met with Ramon kaufman today to follow up on her mdd,, grief reaction anxiety and insomnia.Екатерина is currently [address] Torres. States her mood to be more emotional, anxious. very nervous. Denies any feelings of worthlessness, hopelessness, or helplessness. She does endorse some feelings of guilt, guilt of getting so quickly and feeling like I am replacing my baby . Denies isolating herself. sleep is fine. no problem, falling aleep or staying asleep. getting 8+ hours of sleep. Appetite is too big . Denies any AI or HI. Denies any Ah or VH. Last saw therapist today. Juany Gao CNM, [facility]- [address], [place], [address], [facility] 12/06/2024 22:44:16 OBGyn Episode No OBEpisode recorded.
--- OUTSIDE RECORDS SUMMARY | 2024-12-23 12:38 | XMS_ITS | Encounter Summary ---
Author Organization [facility] Address [address] [place] [address] Care Team Providers Care Car Sealer Name Role Phone Unavailable Primary Care Provider Unavailabl e Prior Encounters Date Type Department Care Team Description 11/20/2019 Converted CPS Chart Documents [facility] [address] [place] [phone] <No scans attached> 11/20/2019 Converted 13x [place] [phone] <No scans attached> Plan of Treatment Not [...] EDT Visit Diagnoses Not on file Insurance [facility] PPO
--- OUTSIDE RECORDS SUMMARY | 2024-12-23 12:38 | XMS_ITS | Clinical Summary ---
Author Organization [facility] Address [address] [place] [address] Care Team Providers Care Equipment Operator Wage Hand Name Role Phone Unavailable Primary Care Provider [...] Last Done Comments Dental Prophylaxis 03/15/2021 09/14/2020, 1 , 03/10/2018 Meningococcal B Vaccine Aged Out No l onger eligible based on patient's age to complete this topic Procedures Procedure Name Priority Date/Time Associated Diagnosis Comments PROPHYLAXIS - ADULT Routine 09/14/2020 3:00 AM EST from Last 3 Months or Most Recently Relevant to Health Maintenance Insurance [facility] PPO
--- OUTSIDE RECORDS SUMMARY | 2024-12-23 12:38 | XMS_ITS | Data Portability ---
Author Organization [place] [facility] Address [address] [place] [address] Assessment Encounter Date Assessment Date Assessment LastModified [...] moment, she does not have neurological deficits [email or web address] Not available 11/11/2023 16:48:17 12/03/2023 12/03/2023 ASSESSMENT [...] hip abduction MMT to 4/5 or greater Director Selection And Administration (To be accomplished in 6 weeks) 1. [...] - PHYSICAL THERAPY Lumbar Spine-Eval uate and [id number] a week for 6-8 weeks 2023 024 [email or web address] Not available 14:57:40 Procedures None recorded. Surgeries None recorded. Imaging XR, lumbar spine 2023 024 deanna Loza, [facility] [place], [address], 4 16:47:32 XR, pelvis 2023 024 [email or web address] Denia, [address] [place], [address], 16:47:37 Medication Orders Medrol (Jack) 4 mg tablets in a dose pack 2023 024 [email or web address] [facility], [address], [place], [address], 16:11:50 Patient TargetsNo targets recorded. Patient Instructions Encounter Date Encounter Id Patient Instructions Last Modified By Organization Details Last Modified Time 11/11/2023 [id number] We reviewed the nature of their condition as well as conservative treatment and activity level modification. We reviewed exercises and discussed avoidance of repetitive impacting activities. We recommend the use of rest, ice and elevation as needed for symptom improvement. We discussed options including observation, topicals, anti-inflammatori es, therapy, injections, surgery. [email or web address] Not available 11/11/2023 09:56:57 Reason for Referral Physical Therapist Referral for Low back pain PHYSICAL THERAPY Lumbar Spine-Evaluate and [email or web address] a week for 6-8 weeks Referring Physician: Brigida Walker, Pain Management, Encounter Date: 11/11/2023 Results Created Date Observation Date Name Description Value Unit Range Abnormal Flag Note LastModifiedBy Organization Detail LastModifiedTime 11/11/19 24 XR, lumba r spine No observ ation record ed. [email or web address] [facility] [address] [place], [address], 11/11/2023 16:47:32 11/11/19 24 XR, pelvi s No observ ation record ed. [facility] [address] [place], [address], 11/11/2023 16:47:36 Result Notes None recorded. Problems Name Problem SNOMED Code Status Onset Date Resolution Date Notes Provider Name and Address Organization Details Recorded Time Low back pain 042612727 Active 024 [address] [place], [place] - [facility] 11/11/2023 15:18:08 Problem Notes None recorded. Procedures Surgical History Date Name Laterality Status Provider Name and Address Organization Details Recorded Time 4 08402: Therapeutic Exercise completed Yeison Elise, PT, DPT, OCS, OMT-C [address] [place] [address], [phone], [facility] 12/03/2023 12:56:00 4 OT/PT Time In/Out completed Yeison Elise PT, DPT, OCS, OMT-C [address] [place] [address], [phone], [facility] - -[facility] 12/03/2023 12:56:03 4 [id number] PT New Eval, Low Complexity completed Yeison Elise, PT, DPT, OCS, OMT-C [address] [place] [address], [address], [facility] - -[facility] 12/03/2023 12:15:13 Imaging Results Imaging Date Name Status LastModified by Organiz ation Details LastModified Time 11/11/2023 XR, lumbar spine completed [email or web address] [address], [address], 11/11/2023 16:47:32 11/11/2023 XR, pelvis completed [email or web address] [address], [address], 11/11/2023 16:47:36 Procedure Notes None recorded. 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 Mental Status None recorded. Family History Nothing Reported. Medical History No medical history recorded. Gynecological HistoryNo gynecological history recorded. Obstetrics History GPAL:G 0 P 0 0 0 0 Past Encounters Encounter ID Performer Location Encounter Start Date Encounter Closed Date Diagnosis/Indication Diagnosis SNOMED-CT Code Diagnosis ICD10 Code Diagnosis Note [id number] DEMETRIO CORREIA [address] [place] [address] 11/11/2023 14:39:15 11/11/2023 16:06:02 Low back pain 216107246 M54.50 [id number] Yeison Elise, PT, DPT, OCS, OMT-C Therapy_[facility] [address] [address] 12/03/2023 12:11:32 12/03/2023 12:57:14 Low back pain 897977365 M54.50 Pain radia ting to left leg 279671023 M79.605 Health Concerns Section Related Observation LastModified by Organization Detai ls LastModified Time None Recorded Concern Status LastModified by Organization Details LastModified Time None Recorded Advance Directives Directive None Recorded Payers Encounter Date Sequence Insurance Name Policy Number Policy Park Covered Member ID Park Member ID Guarantor Name 11/11/2023 1 [facility] [id number] Charlene Delio Lizbet [id number] 2 Екатерина Cameron 12/03/2023 1 [facility]: [facility] [id number] Charlene Delio Lizbet [id number] 2 Екатерина Cameron Notes Date Note Type [...] with an optometry/ophthalmi c surgery office in [place]. Hobbies/pursuits include caring for her three year old step-son and spend time with her family. Yeison Elise, PT, DPT, OCS, OMT-C [address] [place], [address], [place] - [facility] 12/03/2023 13:01:07 OBGyn Episode No OBEpisode recorded.
[2024-12-23 14:13] LABS: Hematocrit 39.2 % (37.0-47.0); Hemoglobin 12.1 g/dL (12.0-15.0); Mean Corpuscular HGB Conc 30.9 g/dl (32-36); Mean Corpuscular Hemoglobin 25.1 pg (26-34); Mean Corpuscular Volume 81.2 fl (80-100); Mean Platelet Volume 9.7 fl (7.4-10.4); Platelet Count Result 279 k/mm3 (150-375); Red Blood Count 4.83 M/mm3 (4.2-5.4); Red Cell Distribution Width 14.6 % (11.5-14.5); White Blood Count 13.8 K/mm3 (4.5-10.0)
[2024-12-23 14:30] LABS: Glucose 1 Hour PP 50gm Dose 76 mg/dL
[2024-12-23 14:57] LABS: Syphilis IgG/IgM Antibody Negative (Negative)
[2024-12-23 15:00] LABS: Hepatitis B Surface Antigen Negative (Negative)
[2024-12-24 00:57] LABS: Rubella IgG Antibody > 110.0 IU/ML
[2024-12-26 15:01] LABS: HIV 1/2 Ab P24 Ag Result Negative (Negative)
[2024-12-28 09:19] LABS: Varicella IgG Antibody 6.61 S/CO
== END 2024-12-23 12:36 | disposition home or self-care (01) ==
LOC: ANHLAB 12:36
PROVIDERS: Visit Provider Obstetrics & Gynecology
DX: N91.2 Amenorrhea, unspecified (principal)
CPT/HCPCS: 36415; 81220; 81329; 82947; 84702; 85027; 86593; 86644; 86703; 86747; 86762; 86787; 86850; 86900; 86901; 87086; 87340; G0432

== ENCOUNTER 2024-12-29 15:18 | Outpatient (CLI) | payer BC, OTHER, SELFPAY | END 2024-12-29 15:19 | disposition home or self-care (01) | PROVIDERS: PCP Obstetrics & Gynecology; Visit Provider Obstetrics & Gynecology | DX: Z36.87 Encounter for antenatal screening for uncertain dates (principal); N92.6 Irregular menstruation, unspecified | CPT/HCPCS: 76801; 76817 ==

== ENCOUNTER 2025-03-06 19:10 | Emergency (ER) | payer BC, OTHER, SELFPAY ==
--- OUTSIDE RECORDS SUMMARY | 2025-03-06 19:13 | XMS_ITS | Clinical Summary ---
Author Organization [facility] [place] [address] [place] [address] Care Team Providers Care Acidizer Name Role Phone Unavailable Primary Care Provider [...] Recently Relevant to Health Maintenance Insurance [facility] PPO
--- OUTSIDE RECORDS SUMMARY | 2025-03-06 19:13 | XMS_ITS | Clinical Summary ---
Author Organization [facility] Address [address] [place] [address] Care Team Providers Care Rental Car Deliverer Name Role Phone Unavailable Primary Care Provider Unavailabl e Source Comments [facility],non-owned Affiliates and Associated Physician Practices is amultiple site organization consisting of ambulatory clinics and hospital sitesin [place], [place], [place] and [place]. This disclosure is being madepursuant to the Care Everywhere program and may not contain all information available regarding this patient. Last updated 18.[facility] Active Problems Problem Noted Date Diagnosed Date Nuchal translucency of fetus on ultraso und 01/16/2025 Prior with demise 01/16/2025 Overview (01/16/2025): 20 weeks; retained placenta and D&C Estimated Date of Delivery Comme nts Yes 08/01/2025 Based on last me nstrual period of 10/25/2024 Encounters Date Type Department Care Team Description 02/12/2025 Travel 01/22/2025 7:30 AM CDT - 01/22/2025 11:59 PM CDT Hospital Encounter [facility] Women's Health Maternal & Care [address] [place] [id number] Isaac Castillo MD Discharge Disposition: Home or Self Care from Last 3 Months Social History Tobacco Use Types Packs/Day Years Used Date Smoking Tobacco: Never Assessed Estimated Date of Delivery Comme nts Yes 08/01/2025 Based on last me nstrual period of 10/25/2024 Sex and Gender Information Value Date Recorded Sex Assigned at Not on file Legal Sex Female 7:06 AM CDT Gender Identity Not on file Sexual Orientation Not on file Plan of Treatment Upcoming Encounters Date Type Department Care Team (Late st Contact Info) Description 03/12/2025 8:15 AM CDT Hospital Encounter [facility] M[facility] & Care [address] [place], [place] [id number] Health Maintenance Due Date Last Done Comments HIV SCREENING 2014 HPV VACCINE (1 - 3-dose series) 2014 DTAP/TDAP/TD VACCINES (1 - Tdap) 2018 HEPATITIS B VACCINE (1 of 3 - 19+ 3-dose series) 2018 CHLAMYDIA/GONORRHEA SCREENING 07/15/2023 07/15/2022, 06/25/2021 PAP SMEAR 06/25/2024 06/25/2021 COVID-19 VACCINE (1 - 2023- season) 2024 DEPRESSION SCREENING 11/01/2024 INFLUENZA VACCINE (Season Ended) 2025 09/18/2021, 08/15/2019, 08/22/2018, Additional history exists Respiratory Syncytial Virus (RSV) Vaccine Pt: or over 60 yrs (1 - Risk 1-dose series) 07/02/2025 ZOSTER VACCINE (1 of 2) 2049 HEPATITIS C SCREENING Completed 06/25/2021 HIB VACCINE Aged Out No longer eligi ble based on patient's age to complete this topic MENINGOCOCCAL (Group B) VACCINE SHARED DECISION-MAKING Aged Out No longer eligible based on patient's age to complete this topic MENINGOCOCCAL GROUPS A/C/Y/W VACCINE Aged Out No longer eligible based on patient's age to complete this topic PNEUMOCOCCAL VACCINE Aged Out No long er eligible based on patient's age to complete this topic Procedures Procedure Name Priority Date/Time Associated Diagnosis Comments FIRST TRI NUCHAL TRANSLUCENCY W:SEQ SCREEN Routine 01/22/2025 7:41 AM CDT 12 weeks gestation of Prior with demise Nuchal translucency of fetus on ultrasound from Last 3 Months Results * FIRST TRI NUCHAL TRANSLUCENCY W:SEQ SCREEN (01/22/2025 7:41 AM CDT) Linked Results Indication ======== Nuchal Translucency First : 20 wk demise No genetic testing Bicornuate Uterus History ====== OB History 2. Para 0 Maternal Assessment = Physical Exam Height 170 cm, 5 ft 7 in. Weight 94 kg, 208 lb. Initial weight 94 kg, 208 lb. BMI 32.58 kg/m . Initial BMI 32.58 kg/m . Weight gain 0 kg, 0 lb Method ====== Transabdominal Ultrasound. View: Suboptimal view: limited by position ========= Bonilla . Number of fetuses: 1 Dating ====== Date Details Gest. age BEBE LMP 10/25/2024 12 w + 5 d 08/01/2025 U/S 01/22/2025 based upon CRL 13 w + 6 d 07/24/2025 Assigned dating based on the LMP, selected on 01/22/2025 12 w + 5 d 08/01/2025 General Evaluation Cardiac activity present Placenta: posterior; right lateral Cord vessels: 3 vessel cord Amniotic fluid: appears normal Biometry FHR 147 bpm CRL 77.9 mm 13w 6d 97% Hadlock NT 1.90 mm Anatomy Face: nasal bone suboptimal. The following structures were visualized: Cranium. Heart. Stomach. Kidneys. Bladder. Spine. Arms. Legs. Maternal Structures Uterus Appearance: bicornuate uterus Impression ========= Single, live, intrauterine at 12w 5d The nuchal translucency measures 1.9 mm Follow-up ======== Follow up ultrasound at 20 weeks for detailed survey, growth and transvaginal cervical length Coding ====== Procedures 13161: 1st Trimester 55425: Nuchal Translucency Matchpoint Careers PACS Anatomical Region Laterality Modality Other 01/22/2025 7:41 AM CDT us Chaya Torres MD [facility] ORDERABLES Edited Result - Final from Last 3 Months Insurance [facility] MEDICAL [facility] Address: [facility] [id number] [place] [id number] [facility]
--- OUTSIDE RECORDS SUMMARY | 2025-03-06 19:13 | XMS_ITS | Data Portability ---
Author Organization [place] [facility] Address [address] [place] [address] Assessment Encounter Date Assessment Date Assessment LastModified [...] moment, she does not have neurological deficits [email or web address] Not available 11/11/2023 16:48:17 12/03/2023 12/03/2023 ASSESSMENT [...] hip abduction MMT to 4/5 or greater Group Home (To be accomplished in 6 weeks) 1. [...] - PHYSICAL THERAPY Lumbar Spine-Eval uate and [id number] a week for 6-8 weeks 2023 024 [email or web address] Not available 14:57:40 Procedures None recorded. Surgeries None recorded. Imaging XR, lumbar spine 2023 024 deanna Loza, [facility] [place], [address], 4 16:47:32 XR, pelvis 2023 024 [email or web address] Denia, [address] [place], [address], 16:47:37 Medication Orders Medrol (Jack) 4 mg tablets in a dose pack 2023 024 [email or web address] [id number] [facility] [employer], [address], [place], [address], 16:11:50 Patient TargetsNo targets recorded. Patient Instructions Encounter Date Encounter Id Patient Instructions Last Modified By Organization Details Last Modified Time 11/11/2023 [id number] We reviewed the nature of their condition as well as conservative treatment and activity level modification. We reviewed exercises and discussed avoidance of repetitive impacting activities. We recommend the use of rest, ice and elevation as needed for symptom improvement. We discussed options including observation, topicals, anti-inflammatori es, therapy, injections, surgery. [email or web address] Not available 11/11/2023 09:56:57 Reason for Referral Physical Therapist Referral for Low back pain PHYSICAL THERAPY Lumbar Spine-Evaluate and [email or web address] a week for 6-8 weeks Referring Physician: Brigida Walker, Pain Management, Encounter Date: 11/11/2023 Results Created Date Observation Date Name Description Value Unit Range Abnormal Flag Note LastModifiedBy Organization Detail LastModifiedTime 11/11/19 24 XR, lumba r spine No observ ation record ed. Denia [address] [place], [address], 11/11/2023 16:47:32 11/11/19 24 XR, pelvi s No observ ation record ed. [email or web address] Denia [address] [place], [address], 11/11/2023 16:47:36 Result Notes None recorded. Problems Name Problem SNOMED Code Status Onset Date Resolution Date Notes Provider Name and Address Organization Details Recorded Time Low back pain 633296450 Active 024 Nicolle Walden [place], [place] - [facility] 11/11/2023 15:18:08 Problem Notes None recorded. Procedures Surgical History Date Name Laterality Status Provider Name and Address Organization Details Recorded Time 4 20901: Therapeutic Exercise completed Yeison Elise, PT, DPT, OCS, OMT-C [address] [place] [address], [phone], [email or web address] 12/03/2023 12:56:00 4 OT/PT Time In/Out completed Yeison Elise PT, DPT, OCS, OMT-C [address] [place] [address], [phone], [facility] - -[facility] 12/03/2023 12:56:03 4 [id number] PT New Eval, Low Complexity completed Yeison Elise, PT, DPT, OCS, OMT-C [address] [place] [address], [phone], [facility] - -[facility] 12/03/2023 12:15:13 Imaging Results Imaging Date Name Status LastModified by Organiz ation Details LastModified Time 11/11/2023 XR, lumbar spine completed [email or web address], [address], 11/11/2023 16:47:32 11/11/2023 XR, pelvis completed [email or web address] [address], [address], 11/11/2023 16:47:36 Procedure Notes None recorded. 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 Mental Status None recorded. Family History Nothing Reported. Medical History No medical history recorded. Gynecological HistoryNo gynecological history recorded. Obstetrics History GPAL:G 0 P 0 0 0 0 Past Encounters Encounter ID Performer Location Encounter Start Date Encounter Closed Date Diagnosis/Indication Diagnosis SNOMED-CT Code Diagnosis ICD10 Code Diagnosis Note [id number] DEMETRIO CORREIA [address] [place] [address] 11/11/2023 14:39:15 11/11/2023 16:06:02 Low back pain 531201129 M54.50 [id number] Yeison Elise, PT, DPT, OCS, OMT-C Therapy_L [address] [address] 12/03/2023 12:11:32 12/03/2023 12:57:14 Low back pain 083493420 M54.50 Pain radia ting to left leg [id number] M79.605 Health Concerns Section Related Observation LastModified by Organization Detai ls LastModified Time None Recorded Concern Status LastModified by Organization Details LastModified Time None Recorded Advance Directives Directive None Recorded Payers Encounter Date Sequence Insurance Name Policy Number Policy Park Covered Member ID Park Member ID Guarantor Name 11/11/2023 1 [facility] [id number] Charlene Delio Lizbet [id number] 2 Екатерина Cameron 12/03/2023 1 [facility] [id number] Charlene Delio Lizbet [id number] Екатерина Cameron Notes Date Note Type [...] with an optometry/ophthalmi c surgery office in [place]. Hobbies/pursuits include caring for her three year old step-son and spend time with her family. Yeison Elise, PT, DPT, OCS, OMT-C [address] [place], [address], [place] - [facility] 12/03/2023 13:01:07 OBGyn Episode No OBEpisode recorded.
--- OUTSIDE RECORDS SUMMARY | 2025-03-06 19:13 | XMS_ITS | Encounter Summary ---
Author Organization [facility] Address [address] [place] [address] Care Team Providers Care Basket Mender Name Role Phone Unavailable Primary Care Provider Unavailabl e Prior Encounters Date Type Department Care Team Description 11/20/2019 Converted CPS Chart Documents [facility] [address] [place] [phone] <No scans attached> 11/20/2019 Converted 13x [place] [phone] <No scans attached> Plan of Treatment Not [...] EDT Visit Diagnoses Not on file Insurance [facility] PPO
--- OUTSIDE RECORDS SUMMARY | 2025-03-06 19:13 | XMS_ITS | Continuity of Care Document ---
Author Organization [facility] Address [address] [place] [address] Care Team Providers Care Instructor Dancing Name Role Phone Unavailable Unavailable Unavailable Medications Medication Instructions Dosage Effective Dates (start - stop) Status Comments NEXPLANON 68 MG IMPLANT - Ac tive Procedures Procedure Date Level III OV New Urnls Dip Stick/tablet Rgnt Auto 2016 Cul Bact [place] Cnt Urine 17 Culture Bct Isol&prsmptv Id [place] [facility] Microdil/agar Ea Multi Advance Directives Directive Yes / No Effective Date File Name No Information Encounters Encounter Description Practice Location Reason(s) For Visit Diagnoses Date Provider Providers Copied on Encounter Level III [facility], [address], [place], [place], [id number], [place] Cystitis, unspecified with hematuria 7 No Information Referring Provider: Abe Kebede, [address], [place], [address]. [facility], [address], [place], [place], [id number], [facility] Cystitis, unspecified with hematuria 7 Yuriy Fish. [address], [place], [address], . Family History Family Member Type Diagnosis Age At Onset Sister Problem (finding) Anxiety/Depression Mother Problem (finding) Kidney Stone Father Problem (finding) Anxiety/Depression Mother Problem (finding) Anxiety/Depression Aunt Problem (finding) Breast Cancer Grandmother Problem (finding) Breast Cancer Mother Problem (finding) Diabetes Payers Payer name Insurance type Covered republican ID Authoriza tion(s) [place] Preferred Blue CI [id number] [facility] CI [id number] Social History Type Description Quantity Date Captured [...]
[2025-03-06 19:16] VITALS: BP 135/77; PULSE 91; RESP 14; TEMP 36.4; O2SAT 100
--- NOTE | 2025-03-06 20:43 | ED_ITS ---
HPI - General Chief complaint: SENIOR RELATIONSHIP MANAGER Stated complaint: 19 weeks preg-spotting Time Seen by Provider: 03/06/25 20:40 History of Present Illness HPI Narrative: Patient is 19 weeks , notice some spotting around an hour ago while she was wiping, was very worried, no abdominal cramping or pain, had a similar episode with her last miscarriage at 20 weeks. The bleeding has now resolved. Related Data Home Medications ?Medication ?Instructions ?Recorded ?Confirmed ?Last Taken ?Type buspirone 15 mg tablet mg PO 12/13/24 02/07/25 Unknown History vits 75-iron 28 mg-folic pkg PO 12/13/24 02/07/25 Unknown History acid 800 mcg-omega-3 oral combo pack (One A Day Women's DHA) sertraline 100 mg tablet 150 mg PO DAILY 12/13/24 02/07/25 Unknown History Allergies Allergy/AdvReac Type Severity Reaction Status Date / Time No Known Allergies Allergy Verified 02/07/25 17:05 Review of Systems Review of Systems: All systems reviewed & are unremarkable except as noted in HPI and below PMFSH Past Medical History Medical History Reflux nephropathy Surgical History Surgical History H/O dilation and curettage aug 08 2024 Family History Family History Other Diabetes mellitus Social History Social History Smoking status: Former smoker Tobacco type: e-cigarettes/vaping Second hand tobacco smoke exposure: Yes Additional smoking assessment comments: Used to vape. Alcohol intake: never Substance use: never Substance use type: does not use Do You Feel Safe in your Home?: Yes Lack of Transportation: No Lack of Food: Never True Current Housing: Decline to Answer Concerned About Future Housing: Decline to Answer Difficulty Paying Gas/Electric Bills: Decline to Answer Difficulty Paying for Meds: Decline to Answer Currently Unemployed: Decline to Answer Education: Decline to Answer Difficulty w/ Childcare or Family Care: Decline to Answer Living arrangements: with family Occupation/Education: occupation Additional occupation/education comments: [employer] Gender identity (if verbalized by the patient): Female Spiritual care concerns: No Exam Narrative: EXAMINATION OF ORGAN SYSTEMS/BODY AREAS: Constitutional: Vital signs per nursing GENERAL: Anxious appearing HEAD: Normal with no signs of head trauma. EYES: EOMI, conjunctiva normal ENT: Hearing grossly intact LUNGS: Nonlabored breathing. HEART: [Regular rate and rhythm] ABD: [Soft], [nontender to palpation] EXT: Normal range of motion SKIN: [No rashes or lesions.] NEURO: [Alert and oriented x 3. No gross focal sensory or strength deficits.] PSYCH: Anxious affect Course Vital Signs Vital signs: Vital Signs Temperature 97.6 F 03/06/25 19:16 Pulse Rate 91 03/06/25 19:16 Respiratory Rate 14 03/06/25 19:16 Blood Pressure 135/77 03/06/25 19:16 Pulse Oximetry 100 03/06/25 19:16 Oxygen Delivery Room Air 03/06/25 19:16 Temperature 97.6 F 03/06/25 19:16 Pulse Rate 85 03/06/25 21:16 Respiratory Rate 16 03/06/25 21:16 Blood Pressure 114/70 03/06/25 21:16 Pulse Oximetry 99 03/06/25 21:16 Oxygen Delivery Room Air 03/06/25 19:16 MDM - OB/Uterine Contractions MDM Narrative Medical decision making narrative: Patient presenting with spotting at 19 weeks . Per EMR she is Rh neg so I will give her dose of RhoGAM here. Bedside ultrasound performed by myself, shows normal movement and heart rate 150. To be parents quite reassured; I did also call OBGYN Dr. Torres who agrees with plan, does not necessarily need RhoGAM, regardless we did try calling blood bank and they cannot release the RhoGAM without having a Rh blood type test done today, I did update the patient and let her know she has 72 hours to get it, if she'd rather not wait here for multiple hours to get a RhoGAM shot especially because she will be seeing her OBGYN tomorrow morning and they can discuss again there; she is stable for discharge at this time with return precautions. Discharge Plan Discharge Clinical Impression: Threatened miscarriage Patient Disposition: Home Condition: Stable Instructions: Threatened Miscarriage (ED) Additional Instructions: Please follow-up with your OBGYN, and you can always come back to the hospital for any further issues. Patient Language: Azeri Prescriptions: New hydroxyzine HCl 25 mg tablet 25 mg PO TID PRN (Reason: anxiety) Qty: 20 0RF No Action buspirone 15 mg tablet PO sertraline 100 mg tablet 150 mg PO DAILY One A Day Women's DHA 28 mg iron- 800 mcg combo pack PO Follow-up/Referrals: Chaya Torres MD [Primary Care Provider] - 3 Days
--- OUTSIDE RECORDS SUMMARY | 2025-03-06 20:57 | XMS_ITS | Encounter Summary ---
Author Organization [facility] Address [address] [place] [address] Care Team Providers Care Vulnerability Researcher Name Role Phone Unavailable Primary Care Provider Unavailabl e Prior Encounters Date Type Department Care Team Description 11/20/2019 Converted CPS Chart Documents [facility] [address] [place] [phone] <No scans attached> 11/20/2019 Converted 13x [place] [phone] <No scans attached> Plan of Treatment Not [...] EDT Visit Diagnoses Not on file Insurance [facility] PPO
--- OUTSIDE RECORDS SUMMARY | 2025-03-06 20:57 | XMS_ITS | Clinical Summary ---
Author Organization [facility] Address [address] [place] [address] Care Team Providers Care Raw Finish Mill Operator Name Role Phone Unavailable Primary Care [...] Most Recently Relevant to Health Maintenance Insurance [facility] PPO
--- OUTSIDE RECORDS SUMMARY | 2025-03-06 20:57 | XMS_ITS | Data Portability ---
Author Organization [facility], Telehealth (patients home) Address [address] [place] [address] Assessment Encounter Date Assessment Date Assessment LastModified by Organization Details LastModified Time 08/16/2024 08/16/2024 met with Екатерина to follow up on genesight results. and make medication changes as needed EPDS 25 GA7=21 [email or web address] Not available 08/16/2024 11:03:16 09/06/2024 09/06/2024 Met with Екатерина for follow-up on her MDD and anxiety. SOPHIA-7 = 9 moderate EPDS = 13 Not available 09/06/2024 21:00:32 10/04/2024 10/04/2024 I met with Екатерина for a follow-up on her MDD and anxiety. SOPHIA-7 = 5 mild EPDS = 10 [email or web address] Not available 10/04/2024 22:17:42 12/06/2024 12/06/2024 Met with Екатерина today for follow up on mdd, anxiety and grief reaction. OSPHIA 5 EPDS 11 [email or web address] Not available 12/06/2024 18:40:48 02/28/2025 02/28/2025 Met with Екатерина today to follow-up on her depression and anxiety. Angelica is 18 weeks gestation SOPHIA-7 = 5 EPDS = 9 [email or web address] Not available 02/28/2025 21:38:22 Plan of Treatment Reminders Order Date Submit Date Provider Last Modified By Organization Details Last Modified Time Details Appointments Psychiatr ic Follow up 2024 05:00P Jessica Gao Not available Not available Not available Lab None recorded. Referral None recorded. Procedures None recorded. Surgeries None recorded. Imaging None recorded. Medication Orders sertralin e 100 mg tablet 2024 025 [facility] [employer] [facility] #58848, [address], [place], [place], [id number], 02/28/2025 21:16:23 buspirone 15 mg tablet 2024 025 [facility] [employer] [facility] #81759, [address], [place], [place], [id number], 02/28/2025 21:16:25 sertralin e 100 mg tablet 2023 024 [facility] [employer] [facility] #80013, [address], [place], [place], [id number], 10/04/2024 22:21:09 hydroxyzi ne HCl 25 mg tablet 2023 024 [facility], [address], [place], [place], [id number], 10/04/2024 22:21:08 hydroxyzi ne HCl 25 mg tablet 2023 024 [facility] [employer] [facility] #04306, [address], [place], [place], [id number], 09/06/2024 21:12:58 buspirone 15 mg tablet 2023 [facility] [employer] [facility] #24493, [address], [place], [place], [id number], 09/06/2024 21:12:58 sertralin e 150 mg capsule 2023 [facility] [employer] [facility] #96837, [address], [place], [place], [id number], 09/06/2024 21:12:56 hydroxyzi ne HCl 25 mg tablet 2023 [facility] [employer] [facility] #34869, [address], [place], [place], [id number], 08/16/2024 11:02:24 buspirone 15 mg tablet 2023 [facility] [employer] [facility] #17559, [address], [place], [place], [id number], 08/16/2024 11:02:23 Patient TargetsNo targets recorded. Patient Instructions Encounter Date Encounter Id Patient Instructions Last Modified By Organization Details Last Modified Time 08/16/2024 [id number] insomnia: care instructions [email or web address] Not available 08/16/2024 11:02:16 09/06/2024 [id number] insomnia: care instructions [email or web address] Not available 09/06/2024 21:12:51 10/04/2024 [id number] insomnia: care instructions [email or web address] Not available 10/04/2024 22:21:03 Reason for Referral None Reported. Problems Name Problem SNOMED Code Status Onset Date Resolution Date Notes Provider Name and Address Organization Details Recorded Time Depressive disorder 52602483 Active 2023 Juany Gao CNM, [facility] [address], [place], [address], [facility] 23:08:33 depression 73376638 Active 2023 Juany Gao CNM, [facility] [address], [place], [address], [facility] 23:12:14 Anxiety 67414768 Active 2023 Juany Gao CNM, [facility] [address], [place], [address], [facility] 23:12:45 Normal grief reaction 589541479 Active 2023 [facility], [facility] [address], [place], [address], [facility] 4 09:37:35 Moderate recurrent major depression 63036158 Active 2023 Juany Gao CNM, [facility] [address], [place], [address], [facility] 4 09:38:10 Generalize d anxiety disorder 16629807 Active 2023 Juany Gao CNM, [facility] [address], [place], [address], [facility] 4 10:57:48 Insomnia 725087595 Active 2023 Juany Gao CNM, [facility] [address], [place], [address], [facility] 4 10:59:45 depression 665140442883 09 Active 2024 Juany Gao CNM, [facility] [address], [place], [address], [facility] 5 18:04:03 Anxiety in Active 2024 Juany Gao CNM, [facility] [address], [place], [address], [facility] 5 21:10:31 Problem Notes None recorded. Procedures Surgical History Date Name Laterality Status Provider Name and Address Organization Details Recorded Time procedure on kidney completed Margret Zapata [facility] 08/07/2024 17:55:41 Imaging Results None recorded. Procedure [...] Not Available Not Available Not Avai lable metronidazole 500 mg tablet TAKE 1 TABLET [...] height Body mass index (BMI) Body weight Heart rate Systolic blood pressure Diastolic blood pressure Provider Name and Address Organization Details Last Updated DateTime 5 170.18 cm 33.7 kg/m2 32811.3 6 g 85 /min 114 mm[Hg] 71 mm[Hg] Margret Zapata [facility] 5 18:00:42 Date Recorded Body height Body mass index (BMI) Body weight Systolic blood pressure Diastolic blood pressure Provider Name and Address Organization Details Last Updated DateTime 08/16/2024 170.18 cm 31.6 kg/m2 47722.66 g 115 mm[Hg] 76 mm[Hg] Margret Zapata [facility] 4 10:27:57 Date Recorded Body height Body mass index (BMI) Body weight Systolic blood pressure Diastolic blood pressure Provider Name and Address Organization Details Last Updated DateTime 09/06/2024 170.18 cm 31.3 kg/m2 85918.47 g 121 mm[Hg] 81 mm[Hg] Margret Zapata [facility] 4 14:14:34 Date Recorded Body height Body mass index (BMI) Body weight Systolic blood pressure Diastolic blood pressure Provider Name and Address Organization Details Last Updated DateTime 12/06/2024 170.18 cm 32.6 kg/m2 50067.21 g 110 mm[Hg] 74 mm[Hg] Margret Zapata [facility] 5 18:11:22 Social History Question Answer Notes LastModified by Organizat ion Details LastModified Time Tobacco Smoking Status Former Smoker Margret Zapata [facility] 08/07/2024 17:55:00 What Is Your Level Of Caffeine Consumption? Occasional [email or web address] Information not available 08/07/2024 When Did You Quit Smoking? 1-5yearssincel morena [email or web address] Information not available 08/07/2024 Are There Any Guns Present In Your Home? Yes [email or web address] Information not available 08/07/2024 Do You Feel Safe In Your Home? Yes [email or web address] Information not available 08/07/2024 Do You Feel Stressed (tense, Restless, Nervous, Or Anxious, Or Unable To Sleep At Night)? [id number] Information not available 08/07/2024 Do You Use Any Illicit Or Recreational Drugs? No [email or web address] Information not available 08/07/2024 Sex: Unknown Functional Status Question Answer Note LastModified by Organization D etails LastModified Time What is your exercise level? None [email or web address] Information not available 08/07/2024 Mental Status None recorded. Family History Relationship Description Onset Age of this Age Resolved Age Notes LastModified by Organization Details LastModified Time Sister Borderline personality disorder [email or web address] Not available 2023 17:53:54 Father Posttraumati c stress disorder [email or web address] Not available 2023 17:53:59 Medical History Condition Response Anxiety Disorder Y Depression Y Gynecological History Statement/Question Response Date of Last Pap Smear Obstetrics History GPAL:G 2 P 0 0 1 0 Type Value Spontaneous 1 Total 2 Past Encounters Encounter ID Performer Location Encounter Start Date Encounter Closed Date Diagnosis/Indication Diagnosis SNOMED-CT Code Diagnosis ICD10 Code Diagnosis Note [id number] Juany Gao CNM, [facility] Main Office [address] [place] [address] 08/07/2024 17:44:51 08/08/2024 18:34:23 Anxiety 19874125 F41.9 started on Buspar 10mg twice a day today by Dr Torres Normal grief reaction 27 3050256 F43.20 continue zoloft 100mg todayrecom mend getting involved with [employer] Moderate r ecurrent major depression 18361176 F33.1 continue zoloft 100mg po dailyconti nue therapy weekly with therapist from [facility] with support internatio nalGenesig ht testing performedr next week for results of genesight and follow up on buspar [id number] Juany Gao CNM, [facility] Main Office [address] [place] [address] 08/16/2024 10:21:24 08/16/2024 11:37:51 Moderate recurrent major depression 89455882 F33.1 Genesight results reviewed and shared decision making used to make plan of medication changesCon tinue zoloft 100mg po daily. discussed continuing zoloft vs switching to pristiq. will continue zoloft at present timerecomm end folic acidcontin ue therapy weekly with therapist from [facility] with support internatio nalrtc 3 weeks Anxiety 00048634 F41.9 increase Buspar to 15mg twice a day, may take mid-day dose if needed Insomnia 758486685 G47.0 0 Start hydroxyzin e 25-50mg daily at bedtime Normal grief reaction 27 0782870 F43.20 continue zoloft 100mg todayrecom mend getting involved with Share[facility] nue weekly therapy [id number] Juany Gao CNM, [facility] Main Office [address] [facility] [place] [address] 09/06/2024 14:05:53 09/06/2024 21:21:19 Moderate recurrent major depression 07599972 F33.1 increase zoloft 150mg po daily. discussed continuing zoloft 150mg dailyrecom mend folic acidcontin ue therapy weekly with therapist from [place] q 2 weeksrecom mend group therapy with support internatio [facility] 4 weeks Normal grief reaction 27 0165389 F43.20 increase zoloft 150mg todayrecom mend getting involved with Share[facility] nue therapy every 2 weeks Anxiety 37052311 F41.9 continue Buspar to 15mg twice a day Insomnia 833989409 G47.0 0 hydroxyzin e 25-50mg daily at bedtime [id number] Juany Gao CNM, [facility] Main Office [address] [place] [address] 10/04/2024 17:58:03 10/05/2024 11:38:29 Moderate recurrent major depression 16888540 F33.1 continue zoloft 150mg po daily.seema mmend folic acidcontin ue therapy weekly with a therapist from [place] q 3 weeksrecom mend group therapy with support internatimid [facility] 2 months Normal grief reaction 27 2378436 F43.20 continue zoloft 150mg todayrecom mend getting involved with [facility] nue therapy every 3 weeks Anxiety 10514010 F41.9 continue Buspar to 15mg twice a day Insomnia 143984498 G47.0 0 hydroxyzin e 25-50mg daily at bedtime [id number] Juany Gao CNM, [facility] Main Office [address] [place] [address] 12/06/2024 18:01:07 12/07/2024 10:24:28 Moderate recurrent major depression 00296315 F33.1 Екатерина is and will follow up in 2nd trimesterC ontinue zoloft 150mg po daily.seema mmend folic acidcontin ue therapy weekly with a therapist from [place] q 3 weeksrecom mend group therapy with support internatio nalrtc 3 months Normal grief reaction 27 1725390 F43.20 Екатерина recently found out she was approx 6 weeks and will plan to follow up at next visit at around the same gestation as her previous losscontin ue zoloft 150mg todayconti nue therapy every 3 weeks Anxiety 63204579 F41.9 continue Buspar to 15mg twice a day [id number] Juany Gao CNM, [facility] Main Office [address] [place] [address] 02/28/2025 17:58:26 03/01/2025 10:02:54 depression 6588305635 2109 O99.342 F32.A Екатерина is and will follow up the beginning of 3rd trimesterC ontinue zoloft 150mg po daily.seema mmend folic acidcontin ue therapy weekly with a therapist from [place] q 3 weeksrecom mend group therapy with support internatio nalrtc 3 months Anxiety in 651 7509195 O99.342 F41.9 continue buspar 15mg bid Health Concerns Section Related Observation LastModified by Organization Detai ls LastModified Time None Recorded Concern Status LastModified by Organization Details LastModified Time None Recorded Advance Directives Directive None Recorded Payers Encounter Date Sequence Insurance Name Policy Number Policy Park Covered Member ID Park Member ID Guarantor Name 08/16/2024 1 [employer] [employer] [id number] Charlene Somers [id number] [facility] 09/06/2024 1 [employer] [employer] [id number] Charlene Somers [id number] [facility] 10/04/2024 1 [employer] [employer] [id number] Charlene Somers [id number] [facility] 12/06/2024 1 [employer] [employer] [id number] Charlene Somers [id number] [facility] 02/28/2025 1 [place] [facility] [id number] Charlene Somers [id number] Екатерина Cameron 02/28/2025 2 [facility] (MEDICAID HMO) [id number] Екатерина Cameron [id number] Екатерина Cameron Notes Date Note Type Note Provider Name and Address Organization Details Recorded Time 08/16/2024 text/html Met with Ramon kaufman to [...] proceeding with the wedding [facility], [facility] [address], [place], [address], [facility] 08/16/2024 11:37:45 09/06/2024 text/html Met with Ramon [...] home and seeing family [facility] G[facility], [facility] [address], [place], [address], [facility] 09/06/2024 21:20:53 10/04/2024 text/html Met with Ramon [...] any AH or VH. Juany Gao CNM, [facility] [address], [place], [address], [facility] 10/04/2024 22:37:35 12/06/2024 text/html met with Ramon kaufman today to follow up on her mdd,, grief reaction anxiety and insomnia.Екатерина is currently [address] Torres. States her mood to be [...] Last saw therapist today. Juany Gao CNM, [facility] [address], [place], [address], [facility] 12/06/2024 22:44:16 02/28/2025 text/html Met with Ramon kaufman today she is 18 weeks gestation. Having a boy. Feeling him move a lot. She is excited but anxious as she gets closer to the 20-week patricia when she had her last loss. She has her next therapist visit next week. States her mood to be fine, irritable. Denies any feelings of worthlessness hopelessness or helplessness. Sleep is good. Denies any SI or HI. Denies any auditory hallucinations or visual hallucinations. Juany Gao CNM, [facility] [address], [place], [address], [place] [facility] 02/28/2025 21:43:21 OBGyn Episode No OBEpisode recorded.
--- OUTSIDE RECORDS SUMMARY | 2025-03-06 20:57 | XMS_ITS | Clinical Summary ---
Author Organization [facility] Address [address] [place] [address] Care Team Providers Care Executive Vice President And Chief Operating Officer Name Role Phone Unavailable Primary Care Provider Unavailabl e Source Comments [facility],non-owned Affiliates and Associated Physician Practices is amultiple site organization consisting of ambulatory clinics and hospital sitesin [place], [place], [place] and [place]. This disclosure is being madepursuant to the Care Everywhere program and may not contain all information available regarding this patient. Last updated 18.[facility] Active Problems Problem Noted Date Diagnosed Date Nuchal translucency of fetus on ultraso und 01/16/2025 Prior with demise 01/16/2025 Overview (01/16/2025): 20 weeks; retained placenta and D&C Estimated Date of Delivery Comme nts Yes 08/01/2025 Based on last me nstrual period of 10/25/2024 Encounters Date Type Department Care Team Description 02/12/2025 Travel 01/22/2025 7:30 AM CDT - 01/22/2025 11:59 PM CDT Hospital Encounter [facility] Women's Health Maternal & Care [address] [place] [id number] Isaac Castillo MD Discharge Disposition: Home or [...] Description 03/12/2025 8:15 AM CDT Hospital Encounter [facility] Women's [facility] Maternal & Care [address] [place], [place] [id number] Health Maintenance Due Date Last Done Comments [...] and transvaginal cervical length Coding ====== Procedures 64433: 1st Trimester 92089: Nuchal Translucency Computer PACS Anatomical Region Laterality Modality Other 01/22/2025 7:41 AM CDT us Chaya Torres MD [facility] ORDERABLES Edited Result - Final from Last 3 Months Insurance [facility] Address: [facility] [id number] [place] [phone] [facility]
--- OUTSIDE RECORDS SUMMARY | 2025-03-06 20:58 | XMS_ITS | Continuity of Care Document ---
Author Organization [facility] Address [address] [place] [address] Care Team Providers Care Wound Nurse Name Role Phone Unavailable Unavailable Unavailable Medications Medication Instructions Dosage Effective Dates (start - stop) Status Comments NEXPLANON 68 MG IMPLANT - Ac tive Procedures Procedure Date Level III OV New Urnls Dip Stick/tablet Rgnt Auto 2016 Cul [facility] [place] Cnt Urine 17 Culture Bct Isol&prsmptv Id [place] [facility] Microdil/agar Ea Multi Advance Directives Directive Yes / No Effective Date File Name No Information Encounters Encounter Description Practice Location Reason(s) For Visit Diagnoses Date Provider Providers Copied on Encounter Level III [facility], [address], [place], [place], [id number], [place] Cystitis, unspecified with hematuria 7 No Information Referring Provider: Abe Kebede, [address], [place], [address]. [facility], [address], [place], [place], [id number], [facility] Cystitis, unspecified with hematuria 7 Yuriy Fish. [address], [place], [address], . Family History Family Member Type Diagnosis Age At Onset Sister Problem (finding) Anxiety/Depression Mother Problem (finding) Kidney Stone Father Problem (finding) Anxiety/Depression Mother Problem (finding) Anxiety/Depression Aunt Problem (finding) Breast Cancer Grandmother Problem (finding) Breast Cancer Mother Problem (finding) Diabetes Payers Payer name Insurance type Covered republican ID Authoriza tion(s) BCBS ID Preferred Blue CI [id number] [facility] CI [id number] Social History Type Description Quantity Date Captured [...]
--- NOTE | 2025-03-06 21:08 | PC.NURSE ---
Blood bank phoned to ask about status of ordered rhogam shot. Blood bank states they don't have the order because the blood test required to administer the shot has not been ordered. Dr. Reeves updated and to bedside to speak with pt. Pt. decided not to wait at [facility] for blood test result and then injection b/c she has an appoint with her workforce planning analyst tomorrow and will hopefully get the shot then. Dr. Reeves ok with this plan. Per , pt. okay to be d/c.
[2025-03-06 21:16] VITALS: BP 114/70; PULSE 85; RESP 16; O2SAT 99
== END 2025-03-06 21:31 | disposition home or self-care (01) ==
LOC: ANHED 20:55
PROVIDERS: Emergency Provider Emergency Medicine; PCP Obstetrics & Gynecology
DX: O20.0 Threatened abortion (principal); Z3A.19 19 weeks gestation of pregnancy; F17.290 Nicotine dependence, other tobacco product, uncomplicated
CPT/HCPCS: 99283

== ENCOUNTER 2025-03-08 17:22 | Outpatient (RCR) | payer BC, OTHER, SELFPAY ==
[2025-03-09] MEDS: RHO(D) IMMUNE GLOBULIN 300 MCG/2 ML SYRINGE IM (12:18)
== END 2025-06-06 23:59 | disposition home or self-care (01) ==
LOC: ANHLAB 17:22
PROVIDERS: PCP Obstetrics & Gynecology; Visit Provider Obstetrics & Gynecology
DX: Z29.13 Encounter for prophylactic Rho(D) immune globulin (principal); N93.9 Abnormal uterine and vaginal bleeding, unspecified; O36.0190 Maternal care for anti-D [Rh] antibodies, unspecified trimester, not applicable or unspecified; Z3A.00 Weeks of gestation of pregnancy not specified
CPT/HCPCS: 36415; 85461; 86850; 86900; 86901; 90384; 96372; J2790

== ENCOUNTER 2025-04-26 14:40 | Outpatient (CLI) | payer BC, OTHER, SELFPAY ==
[2025-04-26 16:19] LABS: Glucose 1 Hour PP 50gm Dose 92 mg/dL
== END 2025-04-26 14:41 | disposition home or self-care (01) ==
LOC: ANHLAB 14:43
PROVIDERS: Visit Provider Student in an Organized Health Care Education/Training Program
DX: Z34.90 Encounter for supervision of normal pregnancy, unspecified, unspecified trimester (principal)
CPT/HCPCS: 36415; 82947

== ENCOUNTER 2025-05-06 12:10 | Observation (INO) | payer BC, OTHER, SELFPAY ==
[2025-05-06] VITALS (7 sets, daily range): BP systolic 104–117; BP diastolic 64–76; PULSE 92–96; BMI 35.5
--- OUTSIDE RECORDS SUMMARY | 2025-05-06 12:19 | XMS_ITS | Data Portability ---
Author Organization [facility], Telehealth (patients home) Address [address] [place] [address] Assessment Encounter Date Assessment Date Assessment LastModified by Organization Details LastModified Time 08/16/2024 08/16/2024 met with Екатерина to follow up on genesight results. and make medication changes as needed EPDS 25 [email or web address] Not available 08/16/2024 11:03:16 09/06/2024 09/06/2024 Met with Екатерина for follow-up on her MDD and anxiety. SOPHIA-7 = 9 moderate EPDS = 13 [email or web address] Not available 09/06/2024 21:00:32 10/04/2024 10/04/2024 I met with Екатерина for a follow-up on her MDD and anxiety. SOPHIA-7 = 5 mild EPDS = 10 [email or web address] Not available 10/04/2024 22:17:42 12/06/2024 12/06/2024 Met with Екатерина today for follow up on mdd, anxiety and grief reaction. SOPHIA 5 EPDS 11 [email or web address] Not available 12/06/2024 18:40:48 02/28/2025 02/28/2025 Met with Екатерина today to follow-up on her depression and anxiety. Angelica is 18 weeks gestation SOPHIA-7 = 5 EPDS = 9 [email or web address] Not available 02/28/2025 21:38:22 Plan of Treatment Reminders Order Date Submit Date Provider Last Modified By Organization Details Last Modified Time Details Appointments Psychiatr ic Follow up 2024 05:00P Jessica Gao Not available Not available Not available Lab None recorded. Referral None recorded. Procedures None recorded. Surgeries None recorded. Imaging None recorded. Medication Orders sertralin e 100 mg tablet 2024 025 [facility]322, [address], [place], [id number], 02/28/2025 21:16:23 buspirone 15 mg tablet 2024 025 [facility] #93881, [address], [place], [place], [id number], 02/28/2025 21:16:25 sertralin e 100 mg tablet 2023 024 [email or web address] #39440, [address], [place], [id number], 10/04/2024 22:21:09 hydroxyzi ne HCl 25 mg tablet 2023 024 [facility] #34368, [address], [place], [place], [id number], 10/04/2024 22:21:08 hydroxyzi ne HCl 25 mg tablet 2023 024 [facility] #91968, [address], [place], [place], [id number], 09/06/2024 21:12:58 buspirone 15 mg tablet 2023 024 [email or web address] #13898, [address], [place], [place], [id number], 09/06/2024 21:12:58 sertralin e 150 mg capsule 2023 [email or web address] #68674, [address], [place], [id number], 09/06/2024 21:12:56 hydroxyzi ne HCl 25 mg tablet 2023 [facility] #77066, [address], [place], [place], [id number], 08/16/2024 11:02:24 buspirone 15 mg tablet 2023 [email or web address] #12560, [address], [place], [place], [id number], 08/16/2024 11:02:23 Patient TargetsNo targets recorded. Patient Instructions Encounter Date Encounter Id Patient Instructions Last Modified By Organization Details Last Modified Time 08/16/2024 [id number] insomnia: care instructions [email or web address] Not available 08/16/2024 11:02:16 09/06/2024 [id number] insomnia: care instructions [email or web address] Not available 09/06/2024 21:12:51 10/04/2024 [id number] insomnia: care instructions [email or web address] Not available 10/04/2024 22:21:03 Reason for Referral None Reported. Problems Name Problem SNOMED Code Status Onset Date Resolution Date Notes Provider Name and Address Organization Details Recorded Time Depressive disorder 42064426 Active 2023 [facility] Gao [facility], [facility] [address], [place], [address], [facility] [place] 23:08:33 depression 59611744 Active 2023 Ju[facility] Gao CNM, [facility] [address], [place], [address], [facility] [place] 23:12:14 Anxiety 16368124 Active 2023 Ju[facility] Gao CNM, [facility] [address], [place], [address], [facility] [place] 23:12:45 Normal grief reaction 195286256 Active 2023 Juany Gao CNM, [facility] [address], [place], [address], [facility] [place] 4 09:37:35 Moderate recurrent major depression 23487470 Active 2023 Juany Gao CNM, [facility] [address], [place], [address], [facility] [place] 4 09:38:10 Generalize d anxiety disorder 31951083 Active 2023 Juany Gao CNM, [facility] [address], [place], [address], [facility] [place] 4 10:57:48 Insomnia 314771865 Active 2023 Juany Gao CNM, [facility] [address], [place], [address], [facility] [place] 4 10:59:45 depression 854984480671 09 Active 2024 Juany Gao CNM, [facility] [address], [place], [address], [facility] [place] 5 18:04:03 Anxiety in Active 2024 Juany Gao CNM, [facility] [address], [place], [address], [facility] [place] 5 21:10:31 Problem Notes None recorded. Procedures Surgical History Date Name Laterality Status Provider Name and Address Organization Details Recorded Time procedure on kidney completed Margret Zapata [facility] [place], [facility] 08/07/2024 17:55:41 Imaging Results None recorded. Procedure [...] No t Available sertraline 100 mg tablet TAKE 1 AND 1/2 TABLETS BY MOUTH EVERY DAY active Not Available [...] Not Available Not Available No t Available magnesium oxide 400 mg (241.3 mg magnesium) tablet TAKE 1 TABLET BY MOUTH EVERY DAY AT BEDTIME active Not Available Not Available No t Available buspirone 10 mg tablet TAKE 1 TABLET BY MOUTH TWICE DAILY NEEDED FOR PANIC ATTACKS active Not Available Not Available No t Available hydroxyzine HCl 25 mg tablet TAKE 1 TABLET BY MOUTH THREE TIMES DAILY NEEDED FOR ANXIETY active Not Available Not Available No t [...] No t Available buspirone 15 mg tablet TAKE 1 TABLET BY MOUTH TWICE DAILY active Not Available Not Available No t Available nitrofurantoin monohydrate/ma crocrystals 100 mg capsule TAKE [...] Body mass index (BMI) Body weight Systolic And Diastolic Provider Name and Address Organization Details Last Updated DateTime 12/06/2024 170.18 cm 32.6 kg/m2 09433.21 g 110/74 mm[Hg] Margret Zapata [facility] [place] 12/06/2024 18:11:22 Date Recorded Body height Body mass index (BMI) Body weight Heart rate Systolic And Diastolic Provider Name and Address Organization Details Last Updated DateTime 02/28/2025 170.18 cm 33.7 kg/m2 63825.36 g 85 /min 114/71 mm[Hg] Margret Zapata [facility] [place] 02/28/2025 18:00:42 Date Recorded Body height Body mass index (BMI) Body weight Systolic And Diastolic Provider Name and Address Organization Details Last Updated DateTime 08/16/2024 170.18 cm 31.6 kg/m2 48660.66 g 115/76 mm[Hg] Margret Zapata [facility] [place] 08/16/2024 10:27:57 Date Recorded Body height Body mass index (BMI) Body weight Systolic And Diastolic Provider Name and Address Organization Details Last Updated DateTime 09/06/2024 170.18 cm 31.3 kg/m2 21280.47 g 121/81 mm[Hg] Margret Zapata [facility] [place] 09/06/2024 14:14:34 Social History Question Answer Notes LastModified by Organizat ion Details LastModified Time Tobacco Smoking Status Former Smoker Margret Zapata [facility] 08/07/2024 17:55:00 What Is Your Level Of Caffeine Consumption? Occasional [email or web address] Information not available 08/07/2024 When Did You Quit Smoking? 1-5yearssinkamran bangura [email or web address] Information not available 08/07/2024 Are There Any Guns Present In Your Home? Yes Information not available 08/07/2024 Do You Feel Safe In Your Home? Yes [email or web address] Information not available 08/07/2024 Sex: Unknown Functional Status Question Answer Note LastModified by Organizat ion Details LastModified Time Do you use any illicit or recreational drugs? No [email or web address] Information not available 08/07/2024 What is your exercise level? None [email or web address] Information not available 08/07/2024 Mental Status Question Answer Note LastModified by Organization D etails LastModified Time Do you feel stressed (tense, restless, nervous, or anxious, or unable to sleep at night)? [id number] [email or web address] Information not available 08/07/2024 Family History Relationship Description Onset Age of this Age Resolved Age Notes LastModified by Organization Details LastModified Time Sister Borderline personality disorder [email or web address] Not available 2023 17:53:54 Father Posttraumati c [...] Code Diagnosis Note [id number] Juany Gao CNM, [facility] Main Office [address] [place] [address] 08/07/2024 17:44:51 08/08/2024 18:34:23 Anxiety 96931956 F41.9 started on Buspar 10mg twice a day today by Dr Torres Normal grief reaction 27 0251197 F43.20 continue zoloft 100mg todayrecom mend getting involved with Share Moderate r ecurrent major depression 25369481 F33.1 continue zoloft 100mg po dailyconti nue therapy weekly with therapist from [facility] therapy with support internatio nalGenesig ht testing performedr tc next week for results of genesight and follow up on buspar [id number] Juany Gao CNM, [facility] Main Office [address] [place] [address] 08/16/2024 10:21:24 08/16/2024 11:37:51 Moderate recurrent major depression 24162916 F33.1 Genesight results reviewed and shared decision making used to make plan of medication changesCon tinue zoloft 100mg po daily. discussed continuing zoloft vs switching to pristiq. will continue zoloft at present timerecomm end folic acidcontin ue therapy weekly with therapist from [facility] therapy with support internatio nalrtc 3 weeks Anxiety 16625407 F41.9 increase Buspar to 15mg twice a day, may take mid-day dose if needed Insomnia 033692521 G47.0 0 Start hydroxyzin e 25-50mg daily at bedtime Normal grief reaction 27 7916451 F43.20 continue zoloft 100mg todayrecom mend getting involved with Shareconti nue weekly therapy [id number] Juany Gao CNM, [facility] Main Office [address] [facility] [place] [address] 09/06/2024 14:05:53 09/06/2024 21:21:19 Moderate recurrent major depression 36303435 F33.1 increase zoloft 150mg po daily. discussed continuing zoloft 150mg dailyrecom mend folic acidcontin ue therapy weekly with therapist from [place] q 2 weeksrecom mend [facility] Normal grief reaction 27 3017493 F43.20 increase zoloft 150mg todayrecom mend getting involved with Share[facility] nue therapy every 2 weeks Anxiety 55517883 F41.9 continue Buspar to 15mg twice a day Insomnia 300453837 G47.0 0 hydroxyzin e 25-50mg daily at bedtime [id number] Juany Gao CNM, [facility] Main Office [address] [place] [address] 10/04/2024 17:58:03 10/05/2024 11:38:29 Moderate recurrent major depression 90952275 F33.1 continue zoloft 150mg po daily.seema mmend folic acidcontin ue therapy weekly with a therapist from [place] q 3 weeksrecom mend group [facility] Normal grief reaction 27 5091832 F43.20 continue zoloft 150mg todayrecom mend getting involved with Sharecont[facility] nue therapy every 3 weeks Anxiety 22266950 F41.9 continue Buspar to 15mg twice a day Insomnia 407347182 G47.0 0 hydroxyzin e 25-50mg daily at bedtime [id number] Juany Gao CNM, [facility] Main Office [address] [place] [address] 12/06/2024 18:01:07 12/07/2024 10:24:28 Moderate recurrent major depression 80465491 F33.1 Екатерина is and will follow up in 2nd trimesterC ontinue zoloft 150mg po daily.seema mmend folic acidcontin ue therapy weekly with a therapist from [place] q 3 weeksrecom mend group therapy with support internatio nalrtc 3 months Normal grief reaction 27 9824555 F43.20 Екатерина recently found out she was approx 6 weeks and will plan to follow up at next visit at around the same gestation as her previous losscontin ue zoloft 150mg todayconti nue therapy every 3 weeks Anxiety 38453520 F41.9 continue Buspar to 15mg twice a day [id number] Juany Gao CNM, PMHNP- Main Office [address] [place] [address] 02/28/2025 17:58:26 03/01/2025 10:02:54 depression 3239155832 2109 O99.342 F32.A Екатерина is and will follow up the beginning of 3rd trimesterC ontinue zoloft 150mg po daily.seema mmend folic acidcontin ue therapy weekly with a therapist from [place] q 3 weeksrecom mend group therapy with support internatio nalrtc 3 months Anxiety in 074 6764283 O99.342 F41.9 continue buspar 15mg bid Health Concerns Section Related Observation LastModified by Organization Detai ls LastModified Time None Recorded Concern Status LastModified by Organization Details LastModified Time None Recorded Advance Directives Directive None Recorded Payers Insurance Date Sequence Insurance Name Policy Number Policy Park Covered Member ID Park Member ID Guarantor Name 03/01/2025 1 [place] [employer] [employer] [id number] Charlene Somers [id number] Reynagamandeep Cameron 08/14/2024 1 [facility] [id number] Ashely Buck [id number] Екатерина Cameron 11/08/2024 PAYMENT PLAN Екатерина Cameron 01/13/2025 PAYMENT PLAN Екатерина Cameron 03/01/2025 2 [facility] (MEDICAID HMO) [id number] Екатерина Cameron [id number] Екатерина Cameron Notes Date Note Type Note [...] proceeding with the wedding Juany Gao CNM, [facility]- [address], [place], [address], [facility] [place] 08/16/2024 11:37:45 09/06/2024 text/html Met with Ramon kuafman today for follow- up. Екатерина is doing [...] home and seeing family [facility], [facility] [address], [place], [address], [facility] [place] 09/06/2024 21:20:53 10/04/2024 text/html Met with Ramon [...] any AH or VH. Juany Gao CNM, [facility]- [address], [place], [address], [facility] [place] 10/04/2024 22:37:35 12/06/2024 text/html met with Ramon kaufman today to follow up on her mdd,, grief reaction anxiety and insomnia.Екатерина is currently 6 weeks . DIETARY SERVICES DIRECTOR Dr. Torres. States her mood to be more emotional, anxious. very nervous. Denies any feelings of worthlessness, hopelessness, or helplessness. She does endorse some feelings of guilt, guilt of getting so quickly and feeling like I am replacing my baby . Denies isolating herself. sleep is fine. no problem, falling aleep or staying asleep. getting 8+ hours of sleep. Appetite is too big. Denies any AI or HI. Denies any Ah or VH. Last saw therapist today. Juany Gao CNM, [facility]- [address], [place], [address], [facility] [place] 12/06/2024 22:44:16 02/28/2025 text/html Met with Ramon [...] hallucinations or visual hallucinations. Juany Gao CNM, [facility]- [address], [place], [address], [facility] [place] 02/28/2025 21:43:21 OBGyn Episode No OBEpisode recorded.
--- OUTSIDE RECORDS SUMMARY | 2025-05-06 12:19 | XMS_ITS | Clinical Summary ---
Author Organization [facility] Address [address] [place] [address] Care Team Providers Care Medical Billing Coordinator Name Role Phone Unavailable Primary Care Provider Unavailabl e Source Comments [facility],non-owned Affiliates and Associated Physician Practices is amultiple site organization consisting of ambulatory clinics and hospital sitesin [place], [place], [place] and [place]. This disclosure is being madepursuant to the Care Everywhere program and may not contain all information available regarding this patient. Last updated 18.[facility] Allergies No known active allergies Active Problems Problem Noted Date Diagnosed Date Nuchal translucency of fetus on ultraso und 01/16/2025 Prior with demise 01/16/2025 Overview (01/16/2025): 20 weeks; retained placenta and D&C Estimated Date of Delivery Comme nts Yes 08/01/2025 Based on last me nstrual period of 10/25/2024 Encounters Date Type Department Care Team Description 04/17/2025 3:15 PM CDT - 04/17/2025 11:59 PM CDT Hospital Encounter [facility] [address] [place] [address] Stephan Allen MD Discharge Disposition: Home or Self Care 03/12/2025 8:15 AM CDT - 03/12/2025 11:59 PM CDT Hospital Encounter [facility] [address] [place] [address] Isaac Castillo MD Discharge Disposition: Home or Self Care 02/12/2025 Travel from Last 3 Months Social History Tobacco [...] Upcoming Encounters Date Type Department Care Team ([facility] Contact Info) Description 05/18/2025 7:30 AM CDT Appointment [facility] [address] [place], [place] [address] Health Maintenance Due Date Last Done Comments HIV SCREENING 2014 HPV VACCINE (1 - 3-dose series) 2014 CHLAMYDIA/GONORRHEA SCREENING 2015 DTAP/TDAP/TD VACCINES (1 - Tdap) 2018 HEPATITIS B VACCINE (1 of 3 - 19+ 3-dose series) 2018 PAP SMEAR 06/25/2024 06/25/2021 COVID-19 VACCINE ( - season) 2024 DEPRESSION SCREENING 11/01/2024 OB-ONE HOUR GLUCOSE 04/25/2025 OB-TDAP CURRENT 05/02/2025 OB-RHOGAM INJECTION 05/09/2025 INFLUENZA VACCINE (Season Ended) 2025 09/18/2021, 08/15/2019, [...] Procedure Name Priority Date/Time Associated Diagnosis Comments SONOGRAM - COMPLETE Routine 04/17/2025 3 :10 PM CDT Prior with demise (HCC) 24 weeks gestation of (HCC) Bicornate uterus Encounter for follow-up ultrasound of anatomy ([facility]) Encounter for ultrasound to assess growth ([facility]) SONOGRAM - COMPLETE Routine 03/12/2025 8 :13 AM CDT Prior with demise (HCC) 20 weeks gestation of (HCC) Bicornate uterus Encounter for anatomic survey ([facility]) from Last 3 Months Results * SONOGRAM - COMPLETE (04/17/2025 3:10 PM CDT) Only the most recent of2 resultswithin the time period is included. Linked Results Indication ======== Incomplete Anatomy Survey Renal Pelvis Dilation First : 20 wk demise Bicornuate Uterus History ====== OB History 2. Para 1 [id number] 1. miscarriage (20 - 23 weeks) Lab Tests Test Date Result NIPT Low risk, Male Maternal Assessment Physical Exam Height 170 cm, 5 ft 7 in. Initial weight 94 kg, 208 lb. Initial BMI 32.58 kg/m Method ====== Transabdominal ultrasound. View: Sufficient ========= Bonilla . Number of fetuses: 1 Dating ====== Date Details Gest. age BEBE LMP 10/25/2024 24 w + 6 d 08/01/2025 Stated BEBE 24 w + 6 d 08/01/2025 Previous U/S 12/29/2024 CRL 30.0 mm 25 w + 3 d 07/28/2025 U/S 04/17/2025 based upon AC, BPD, Femur, HC 26 w + 4 d 07/20/2025 Assigned dating based on the LMP, selected on 01/22/2025 24 w + 6 d 08/01/2025 General Evaluation Cardiac activity present. FHR 130 bpm. Presentation: cephalic Placenta: Placental site: right lateral Umbilical cord: Cord vessels: 3 vessel cord - previously documented. Insertion site: normal insertion Amniotic fluid: Amount of AF: mildly increased. MVP 8.2 cm Biometry BPD 69.0 mm 27w 5d >99% Hadlock HC 244.3 mm 26w 4d 85% Hadlock AC 227.1 mm 27w 1d 95% Hadlock Femur 45.3 mm 25w 0d 40% Hadlock HC / AC 1.08 Weight Calculation: EFW 924 g 94% Hadlock EFW (lb,oz) 2 lb 1 oz EFW by Hadlock (XWN-EB-DV-FL) accelerated Growth Overview Exam date GA BPD (mm) HC (mm) AC (mm) FL (mm) HL (mm) EFW (g) 03/12/2025 19w 5d 49.8 93% 180.7 77% 165.7 93% 34.2 78% 31.7 82% 402 98% 04/17/2025 24w 6d 69 >99% 244.3 85% 227.1 95% 45.3 40% 924 94% Anatomy The following structures appear abnormal: Abdomen Right kidney: Renal pelvis dilation 0.64cm. The following structures appear normal: Head / Neck Cranium. Lateral ventricles. Thalami. Heart / Thorax 4-chamber view. Aortic arch view. Bicaval view. Ductal arch view. Interventricular septum. Great vessels. Abdomen Stomach. Left kidney. Bladder. Spine Lumbar spine. Sacral spine. Extremities / Skeleton Legs. The following structures could not be adequately visualized: Heart / Thorax 0-twnnse-bczesvq view. The following structures were documented previously: Head / Neck Choroid plexus. Midline falx. Cavum septi pellucidi. Cerebellum. Cisterna magna. Face Lips. Profile. Nose. Orbits. Heart / Thorax RVOT view. LVOT view. 3-vessel view. Situs. Abdomen Cord insertion. Genitals. Spine Cervical spine. Thoracic spine. Extremities / Skeleton Arms. Hands. Feet. Impression ========= Single, live, intrauterine at 24w 6d The size is accelerated. The amniotic fluid volume is mildly increased. UTD A1: Right renal pelvis dilation measures 0.64cm No major malformations were seen within the limitations of ultrasound Follow-up ======== Follow up ultrasound in 4 weeks for growth and to complete anatomic survey Coding ====== Procedures 11960: US Preg Uterus Follow Up [facility] Anatomical Region Laterality Modality Other 04/17/2025 3:10 PM CDT us Chaya Torres MD [facility] ORDERABLES Edited Result - Final from Last 3 Months Insurance [facility]
--- OUTSIDE RECORDS SUMMARY | 2025-05-06 12:19 | XMS_ITS | Continuity of Care Document ---
Author Organization [facility] Address [address] [place] [address] Care Team Providers Care Shuttle Hand Name Role Phone Unavailable Unavailable Unavailable Medications Medication Instructions Dosage Effective Dates (start - stop) Status Comments NEXPLANON 68 MG IMPLANT - Ac tive Procedures Procedure Date Level III OV New Urnls Dip Stick/tablet Rgnt Auto 2016 Cul Bact [place] Cnt Urine 17 Culture Bct Isol&prsmptv Id [place] Sc Antmcrb Microdil/agar Ea Multi Advance Directives Directive Yes / No Effective Date File Name No Information Encounters Encounter Description Practice Location Reason(s) For Visit Diagnoses Date Provider Providers Copied on Encounter Level III [facility], [address], [place], [place], [id number], [place] Cystitis, unspecified with hematuria 7 No Information Referring Provider: Abe Kebede, [address], [place], [address]. [facility], [address], [place], [place], [id number], [facility] Cystitis, unspecified with hematuria 7 Yuriy Fish. [address], [place], [address], . Family History Family Member Type Diagnosis Age At Onset Sister Problem (finding) Anxiety/Depression Mother Problem (finding) Kidney Stone Father Problem (finding) Anxiety/Depression Mother Problem (finding) Anxiety/Depression Aunt Problem (finding) Breast Cancer Grandmother Problem (finding) Breast Cancer Mother Problem (finding) Diabetes Payers Payer name Insurance type Covered alliance party ID Authoriza tioral(s) [place] Preferred Blue [place] [id number] [facility] CI [id number] Social History Type Description Quantity Date Captured [...]
--- OUTSIDE RECORDS SUMMARY | 2025-05-06 12:19 | XMS_ITS | Clinical Summary ---
Author Organization [facility] Address [address] [place] [address] Care Team Providers Care Fire Marshal Refinery Name Role Phone Unavailable Primary Care Provider Unavailabl e Social History Tobacco Use Types Packs/Day Years Used Date Smoking Tobacco: Never Assessed Comments Unknown Sex and Gender Information Value Date Recorded Sex Assigned at Not on file Legal Sex Female 7:51 AM PST Gender Identity Not on file Sexual Orientation Not on file Plan of Treatment Not on file Insurance [facility]
--- OUTSIDE RECORDS SUMMARY | 2025-05-06 12:19 | XMS_ITS | Encounter Summary ---
Author Organization [facility] Address [address] [place] [address] Care Team Providers Care Profiler Name Role Phone Unavailable Primary Care Provider Unavailabl e Prior Encounters Date Type Department Care Team Description 11/20/2019 Converted CPS Chart Documents [facility] [address] [place] [id number] <No scans attached> 11/20/2019 Converted 13x [place] [address] <No scans attached> Plan of Treatment Not [...] EDT Visit Diagnoses Not on file Insurance [facility] PP
--- OUTSIDE RECORDS SUMMARY | 2025-05-06 12:19 | XMS_ITS | Data Portability ---
Author Organization [place] - [facility] MRI Address [address] [place] [address] Assessment Encounter Date Assessment Date Assessment LastModified [...] moment, she does not have neurological deficits [email or web address] Not available 11/11/2023 16:48:17 12/03/2023 12/03/2023 ASSESSMENT [...] hip abduction MMT to 4/5 or greater Residential (To be accomplished in 6 weeks) 1. [...] physical therapist referral - PHYSICAL THERAPY Lumbar Spine -Evaluate and Treat 2x a week for 6-8 weeks 2023 024 [email or web address] Not available 4 14:57:40 Procedures None recorded. Surgeries None recorded. Imaging XR, lumbar spine 2023 024 deanna Loza, [facility] [place], [address], 4 16:47:32 XR, pelvis 2023 024 Denia, [address] [place], [address], 4 16:47:37 Medication Orders Medrol (Jack) 4 mg tablets in a dose pack 2023 024 [email or web address] [id number] [employer], [address] [place], [address], 16:11:50 Patient TargetsNo targets recorded. Patient Instructions Encounter Date Encounter Id Patient Instructions Last Modified By Organization Details Last Modified Time 11/11/2023 [id number] We reviewed the nature of their condition as well as conservative treatment and activity level modification. We reviewed exercises and discussed avoidance of repetitive impacting activities. We recommend the use of rest, ice and elevation as needed for symptom improvement. We discussed options including observation, topicals, anti-inflammatori es, therapy, injections, surgery. [email or web address] Not available 11/11/2023 09:56:57 Reason for Referral Physical Therapist Referral for Low back pain PHYSICAL THERAPY Lumbar Spine-Evaluate and Fliwu1r a week for 6-8 weeks Referring Physician: Brigida Walker, Pain Management, Encounter Date: 11/11/2023 Results Created Date Observation Date Name Description Value Unit Range Abnormal Flag Note LastModifiedBy Organization Detail LastModifiedTime 11/11/19 24 XR, lumba r spine No observ ation record ed. [email or web address] [facility]ia [address] [place], [address], 11/11/2023 16:47:32 11/11/19 24 XR, pelvi s No observ ation record ed. [email or web address] Denia [address] [place], [address], 11/11/2023 16:47:36 Result Notes None recorded. Problems Name Problem SNOMED Code Status Onset Date Resolution Date Notes Provider Name and Address Organization Details Recorded Time Low back pain 655290409 Active 024 Nicolle Walden [place], [place] - -[facility] 11/11/2023 15:18:08 Problem Notes None recorded. Procedures Surgical History Date Name Laterality Status Provider Name and Address Organization Details Recorded Time 4 41414: Therapeutic Exercise completed Yeison Elise, PT, DPT, OCS, OMT-C [address] [place], [place], [address] [place] [address], [facility] 12/03/2023 12:56:00 4 OT/PT Time In/Out completed Yeison Elise, PT, DPT, OCS, OMT-C [address] [place], [place], [address] [place] [address], [facility] 12/03/2023 12:56:03 4 42660 PT New Eval, Low Complexity completed Yeison Elise, PT, DPT, OCS, OMT-C [address] [place], [address], [facility] 12/03/2023 12:15:13 Imaging Results None recorded. Procedure Notes None [...] t Available Vitals None Recorded Social History None recorded. 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 Family History Nothing Reported. Medical History No medical history recorded. Gynecological HistoryNo gynecological history recorded. Obstetrics History GPAL:G 0 P 0 0 0 0 Past Encounters Encounter ID Performer Location Encounter Start Date Encounter Closed Date Diagnosis/Indication Diagnosis SNOMED-CT Code Diagnosis ICD10 Code Diagnosis Note [id number] DEMETRIO CORREIA [address] [place] [address] 11/11/2023 14:39:15 11/11/2023 16:06:02 Low back pain 083187752 M54.50 [id number] Yeison Elise, PT, DPT, OCS, OMT-C Therapy_L [address] [address] 12/03/2023 12:11:32 12/03/2023 12:57:14 Low back pain 688230683 M54.50 Pain radia ting to left leg 589436372 M79.605 Health Concerns Section Related Observation LastModified by Organization Detai ls LastModified Time None Recorded Concern Status LastModified by Organization Details LastModified Time None Recorded Advance Directives Directive None Recorded Payers Insurance Date Sequence Insurance Name Policy Number Policy Park Covered Member ID Park Member ID Guarantor Name 01/09/2024 1 [facility] (O) [id number] Charlene Somers [id number] 2 Екатерина Cameron Notes Date Note Type Note Provider Name and Address Organization Details Recorded Time 12/03/2023 text/html CLINICAL IMPRESSION- This patient is a 22 y/o female who presents with c/o of gradual and worsening lower back pain with radiation [...] with an optometry/ophthalmi c surgery office in [place]. Hobbies/pursuits include caring for her three year old step-son and spend time with her family. Yeison Elise, PT, DPT, OCS, OMT-C [address] [place], [address], [facility] [place] [facility] 12/03/2023 13:01:07 OBGyn Episode No OBEpisode recorded.
[2025-05-06 12:57] LABS: Add Urine Microscopic? YES; Appearance Urine Clear (Clear); Glucose Urine UA Negative (Negative); Leukocyte Esterase Ur Trace LEU/UL (Negative); Nitrate Urine Negative (Negative); Non Pathogenic Casts 0-2; Specific Grav Ur 1.012 (1.001-1.035)
--- NOTE | 2025-05-29 16:43 | PM.OBTRLD ---
OB - Triage/Final Diagnosis Visit Information Comments/Additional reasons for admission: I have assessed the risk for this patient, Екатерина Cameron, and determined that she would benefit from observation care. Evaluation Laboratory results: Laboratory Tests 05/06/25 12:41 Urine Color Yellow Urine Appearance Clear Urine pH 7.5 Ur Specific [place] 1.012 Urine Protein Negative Urine Glucose (UA) Negative Urine Ketones Negative Ur Blood (Man) Negative Urine Nitrate Negative Urine Bilirubin Negative Urine Urobilinogen 0.2 Leukocyte Esterase Rfl Trace H Urine RBC 0-2 Urine WBC 0-5 Ur Squamous Epith Cells None seen Urine Bacteria None seen Urine Casts 0-2 Final Diagnosis (1) Back pain: Code(s): M54.9 - Dorsalgia, unspecified Status: Acute (2) Headache: Code(s): R51.9 - Headache, unspecified Status: Acute
== END 2025-05-06 14:04 | disposition home or self-care (01) ==
PROVIDERS: Admitting Provider Obstetrics & Gynecology; Visit Provider Obstetrics & Gynecology
DX: O99.891 Other specified diseases and conditions complicating pregnancy (principal); M54.9 Dorsalgia, unspecified; O26.893 Other specified pregnancy related conditions, third trimester; R51.9 Headache, unspecified; Z3A.28 28 weeks gestation of pregnancy
CPT/HCPCS: 81001; 87086; G0378; G0379

== ENCOUNTER 2025-05-18 16:47 | Outpatient (CLI) | payer BC, OTHER, SELFPAY ==
--- OUTSIDE RECORDS SUMMARY | 2025-05-18 16:51 | XMS_ITS | Data Portability ---
Author Organization [facility], Telehealth (patients home) Address [address] [place] [address] Assessment Encounter Date Assessment Date Assessment LastModified by Organization Details LastModified Time 08/16/2024 08/16/2024 met with Екатерина to follow up on genesight results. and make medication changes as needed EPDS 25 GA7=21 [email or web address] Not available 08/16/2024 11:03:16 09/06/2024 09/06/2024 Met with Екатерина for follow-up on her MDD and anxiety. SOPHIA-7 = 9 moderate EPDS = 13 Not available 09/06/2024 21:00:32 10/04/2024 10/04/2024 I met with Екатерина for a follow-up on her MDD and anxiety. SOPHIA-7 = 5 mild EPDS = 10 [email or web address] Not available 10/04/2024 22:17:42 12/06/2024 12/06/2024 Met with Екатерина today for follow up on mdd, anxiety and grief reaction. SOPHIA 5 EPDS 11 Not available 12/06/2024 18:40:48 02/28/2025 02/28/2025 Met with Екатерина today to follow-up on her depression and anxiety. Angelica is 18 weeks gestation SOPHIA-7 = 5 EPDS = 9 [email or web address] Not available 02/28/2025 21:38:22 Plan of Treatment Reminders Order Date Submit Date Provider Last Modified By Organization Details Last Modified Time Details Appointments Psychiatr ic Follow up 2024 05:00P Jessica Gao Not available Not available Not available Lab None recorded. Referral None recorded. Procedures None recorded. Surgeries None recorded. Imaging None recorded. Medication Orders [facility]in e 100 mg tablet [facility]25 [id number], [address], [place], [id number], 02/28/2025 21:16:23 buspirone 15 mg tablet 2024 025 [facility], [address], [place], [place], [id number], 02/28/2025 21:16:25 sertralin e 100 mg tablet 2023 024 [facility], [address], [place], [id number], 10/04/2024 22:21:09 hydroxyzi ne HCl 25 mg tablet 2023 024 [facility], [address], [place], [place], [id number], 10/04/2024 22:21:08 hydroxyzi ne HCl 25 mg tablet 2023 024 [facility], [address], [place], [place], [id number], 09/06/2024 21:12:58 buspirone 15 mg tablet 2023 024 [facility]64375, [address], [place], [place], [id number], 09/06/2024 21:12:58 sertralin e 150 mg capsule 2023 [facility]02878, [address], [place], [id number], 09/06/2024 21:12:56 hydroxyzi ne HCl 25 mg tablet 2023 [facility]63728, [address], [place], [place], [id number], 08/16/2024 11:02:24 buspirone 15 mg tablet 2023 [facility]05185, [address], [place], [place], [id number], 08/16/2024 11:02:23 Patient TargetsNo targets recorded. Patient Instructions Encounter Date Encounter Id Patient Instructions Last Modified By Organization Details Last Modified Time 08/16/2024 [id number] insomnia: care instructions Not available 08/16/2024 11:02:16 09/06/2024 [id number] insomnia: care instructions Not available 09/06/2024 21:12:51 10/04/2024 [id number] insomnia: care instructions [email or web address] Not available 10/04/2024 22:21:03 Reason for Referral None Reported. Problems Name Problem SNOMED Code Status Onset Date Resolution Date Notes Provider Name and Address Organization Details Recorded Time Depressive disorder 03440742 Active 2023 Ju[facility] Gao CNM, [facility] [address], [place], [address], [facility] 23:08:33 depression 66014701 Active 2023 Juany Gao CNM, [facility] [address], [place], [address], [facility] 23:12:14 Anxiety 24967316 Active 2023 Juany Gao CNM, [facility] [address], [place], [address], [facility] 23:12:45 Normal grief reaction 911976529 Active 2023 Juany Gao CNM, [facility] [address], [place], [address], [facility] 4 09:37:35 Moderate recurrent major depression 01085428 Active 2023 Juany Gao CNM, [facility] [address], [place], [address], [facility] 4 09:38:10 Generalize d anxiety disorder 24812962 Active 2023 Juany Gao CNM, [facility] [address], [place], [address], [facility] 4 10:57:48 Insomnia 870449267 Active 2023 Juany Gao CNM, [facility] [address], [place], [address], [facility] 4 10:59:45 depression 083574593062 09 Active 2024 Juany Gao CNM, [facility] [address], [place], [address], [facility] 5 18:04:03 Anxiety in Active 2024 Juany Gao CNM, [facility] [address], [place], [address], [facility] 5 21:10:31 Problem Notes None recorded. Procedures Surgical History Date Name Laterality Status Provider Name and Address Organization Details Recorded Time procedure on kidney completed [facility] 08/07/2024 17:55:41 Imaging Results None recorded. Procedure [...] Updated DateTime 12/06/2024 170.18 cm 32.6 kg/m2 02267.21 g 110/74 mm[Hg] [facility] 12/06/2024 18:11:22 Date Recorded Body height Body mass index (BMI) Body weight Heart rate Systolic And Diastolic Provider Name and Address Organization Details Last Updated DateTime 02/28/2025 170.18 cm 33.7 kg/m2 74748.36 g 85 /min 114/71 mm[Hg] Margret Zap[facility] 02/28/2025 18:00:42 Date Recorded Body height Body mass index (BMI) Body weight Systolic And Diastolic Provider Name and Address Organization Details Last Updated DateTime 08/16/2024 170.18 cm 31.6 kg/m2 44206.66 g 115/76 mm[Hg] Margret Zapata [facility] 08/16/2024 10:27:57 Date Recorded Body height Body mass index (BMI) Body weight Systolic And Diastolic Provider Name and Address Organization Details Last Updated DateTime 09/06/2024 170.18 cm 31.3 kg/m2 82312.47 g 121/81 mm[Hg] Marg[facility]ap[facility] 09/06/2024 14:14:34 Social History Question Answer Notes LastModified by Organizat ion Details LastModified Time Tobacco Smoking Status Former Smoker Margret Zapata [facility] 08/07/2024 17:55:00 What Is Your Level Of Caffeine Consumption? Occasional [email or web address] Information not available 08/07/2024 When Did You Quit Smoking? 1-5yearssinkamran bangura [email or web address] Information not available 08/07/2024 Are There Any Guns Present In Your Home? Yes [email or web address] Information not available 08/07/2024 Do You Feel Safe In Your Home? Yes [email or web address] Information not available 08/07/2024 Sex: Unknown Functional Status Question Answer Note LastModified by Organizat ion Details LastModified Time Do you use any illicit or recreational drugs? No [email or web address] Information not available 08/07/2024 What is your exercise level? None [email or web address] Information not available 08/07/2024 Mental Status Question Answer Note LastModified by Organization D etails LastModified Time Do you feel stressed (tense, restless, nervous, or anxious, or unable to sleep at night)? [id number] Information not available 08/07/2024 Family History Relationship Description Onset Age of this Age Resolved Age Notes LastModified by Organization Details LastModified Time Sister Borderline personality disorder Not available 2023 17:53:54 Father Posttraumati c stress disorder [email or web address] Not available 2023 17:53:59 Medical History Condition Response Anxiety Disorder Y Depression Y Gynecological History Statement/Question Response Date of Last Pap Smear Obstetrics History GPAL:G 2 P 0 0 1 0 Type Value Spontaneous 1 Total 2 Past Encounters Encounter ID Performer Location Encounter Start Date Encounter Closed Date Diagnosis/Indication Diagnosis SNOMED-CT Code Diagnosis ICD10 Code Diagnosis Note [id number] Juany Gao CNM, [facility] Main Office [address] [place] [address] 08/07/2024 17:44:51 08/08/2024 18:34:23 Anxiety 47195712 F41.9 started on Buspar 10mg twice a day today by Dr Torres Normal grief reaction 27 2488411 F43.20 continue zoloft 100mg todayrecom mend getting involved with [facility] Moderate r ecurrent major depression 93974059 F33.1 continue zoloft 100mg po dailyconti nue therapy weekly with therapist from [facility] therapy with support internatio nalGenesig ht testing performedr tc next week for results of genesight and follow up on buspar [id number] Juany Gao CNM, [facility] Main Office [address] [place] [address] 08/16/2024 10:21:24 08/16/2024 11:37:51 Moderate recurrent major depression 77485050 F33.1 Genesight results reviewed and shared decision making used to make plan of medication changesCon tinue zoloft 100mg po daily. discussed continuing zoloft vs switching to pristiq. will continue zoloft at present timerecomm end folic acidcontin ue therapy weekly with therapist from [facility] therapy with support internatio nalrtc 3 weeks Anxiety 40702083 F41.9 increase Buspar to 15mg twice a day, may take mid-day dose if needed Insomnia 452553272 G47.0 0 Start hydroxyzin e 25-50mg daily at bedtime Normal grief reaction 27 9540498 F43.20 continue zoloft 100mg todayrecom mend getting involved with Shareconti nue weekly therapy [id number] Juany Gao CNM, [facility] Main Office [address] [facility] [place] [address] 09/06/2024 14:05:53 09/06/2024 21:21:19 Moderate recurrent major depression 46936209 F33.1 increase zoloft 150mg po daily. discussed continuing zoloft 150mg dailyrecom mend folic acidcontin ue therapy weekly with therapist from [place] q 2 weeksrecom mend [facility] Normal grief reaction 27 7221877 F43.20 increase zoloft 150mg todayrecom mend getting involved with Shareconti nue therapy every 2 weeks Anxiety 18370655 F41.9 continue Buspar to 15mg twice a day Insomnia 174407487 G47.0 0 hydroxyzin e 25-50mg daily at bedtime [id number] Juany Gao CNM, [facility] Main Office [address] [place] [address] 10/04/2024 17:58:03 10/05/2024 11:38:29 Moderate recurrent major depression 81015018 F33.1 continue zoloft 150mg po daily.seema mmend folic acidcontin ue therapy weekly with a therapist from [place] q 3 weeksrecom mend group [facility] Normal grief reaction 27 5531500 F43.20 continue zoloft 150mg todayrecom mend getting involved with Share[facility] nue therapy every 3 weeks Anxiety 80096511 F41.9 continue Buspar to 15mg twice a day Insomnia 519491538 G47.0 0 hydroxyzin e 25-50mg daily at bedtime [id number] Juany Gao CNM, [facility] Main Office [address] [place] [address] 12/06/2024 18:01:07 12/07/2024 10:24:28 Moderate recurrent major depression 11719817 F33.1 Екатерина is and will follow up in 2nd trimesterC ontinue zoloft 150mg po daily.seema mmend folic acidcontin ue therapy weekly with a therapist from [place] q 3 weeksrecom mend group therapy with support internatio nalrtc 3 months Normal grief reaction 27 1419346 F43.20 Екатерина recently found out she was approx 6 weeks and will plan to follow up at next visit at around the same gestation as her previous losscontin ue zoloft 150mg todayconti nue therapy every 3 weeks Anxiety 43951755 F41.9 continue Buspar to 15mg twice a day [id number] Juany Gao CNM, [facility]NP- Main Office [address] [place] [address] 02/28/2025 17:58:26 03/01/2025 10:02:54 depression 8402205393 2109 O99.342 F32.A Екатерина is and will follow up the beginning of 3rd trimesterC ontinue zoloft 150mg po daily.seema mmend folic acidcontin ue therapy weekly with a therapist from [place] q 3 weeksrecom mend group therapy with support internatio nalrtc 3 months Anxiety in 019 9354653 O99.342 F41.9 continue buspar 15mg bid Health Concerns Section Related Observation LastModified by Organization Detai ls LastModified Time None Recorded Concern Status LastModified by Organization Details LastModified Time None Recorded Advance Directives Directive None Recorded Payers Insurance Date Sequence Insurance Name Policy Number Policy Park Covered Member ID Park Member ID Guarantor Name 05/18/2025 1 [employer] [employer] [id number] Charlene Somers [id number] Reynagamandeep Cameron 08/14/2024 1 [facility] [id number] Ashely Buck [id number] Екатерина Cameron 11/08/2024 PAYMENT PLAN Екатерина Cameron 01/13/2025 PAYMENT PLAN Екатерина Cameron 03/01/2025 2 [facility] (MEDICAID HMO) [id number] Екатерина Cameron [id number] Екатерина Cameron Notes Date Note Type Note [...] Juany Gao CNM, [facility]- [address], [place], [address], [facility] 08/16/2024 11:37:45 09/06/2024 text/html Met with Ramon [...] home and seeing family Juany Gao CNM, [facility] [address], [place], [address], [facility] 09/06/2024 21:20:53 10/04/2024 text/html Met with Ramon [...] any AH or VH. Juany Gao CNM, [facility]- [address], [place], [address], [facility] 10/04/2024 22:37:35 12/06/2024 text/html met with Ramon kaufman today to follow up on her mdd,, grief reaction anxiety and insomnia.Екатерина is currently [address] [employer] [address] Torres. States her mood to be [...] Last saw therapist today. Juany Gao CNM, [facility]- [address], [place], [address], [facility] 12/06/2024 22:44:16 02/28/2025 text/html Met with Ramon [...] hallucinations or visual hallucinations. Juany Gao CNM, [facility]- [address], [place], [address], [facility] 02/28/2025 21:43:21 OBGyn Episode No OBEpisode recorded.
--- OUTSIDE RECORDS SUMMARY | 2025-05-18 16:51 | XMS_ITS | Clinical Summary ---
Author Organization [facility] Address [address] [place] [address] Care Team Providers Care Survey Supervisor Name Role Phone Unavailable Primary Care Provider Unavailabl e Source Comments [facility],non-owned Affiliates and Associated Physician Practices is amultiple site organization consisting of ambulatory clinics and hospital sitesin [place], [place], [place] and [place]. This disclosure is being madepursuant to the Care Everywhere program and may not contain all information available regarding this patient. Last updated 18.[facility] Allergies No known active allergies Active Problems Problem Noted Date Diagnosed Date Nuchal translucency of fetus on ultraso und 01/16/2025 Prior with demise 01/16/2025 Overview (01/16/2025): 20 weeks; retained placenta and D&C Estimated Date of Delivery Comme nts Yes 08/01/2025 Based on last me nstrual period of 10/25/2024 Encounters Date Type Department Care Team Description 05/18/2025 7:30 AM CDT Hospital Encounter [facility] [address] [place] [address] Russ Mcdonald MD 04/17/2025 3:15 PM CDT - 04/17/2025 11:59 PM CDT Hospital Encounter [facility] [address] [place] [address] Stephan Allen MD Discharge Disposition: Home or Self Care 03/12/2025 8:15 AM CDT - 03/12/2025 11:59 PM CDT Hospital Encounter [facility] [address] [place], [place] [id number] Isaac Castillo MD Discharge Disposition: Home or [...] CURRENT 05/02/2025 OB-RHOGAM INJECTION 05/09/2025 INFLUENZA VACCINE (#1) 2025 , 08/15/2019, 08/22/2018, Additional history exists Respiratory Syncytial [...] Associated Diagnosis Comments SONOGRAM - COMPLETE Routine 05/18/2025 7 :38 AM CDT Prior with demise (HCC) 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) Encounter for follow-up ultrasound of anatomy (HCC) Encounter for ultrasound to assess growth (HCC) SONOGRAM - COMPLETE Routine 04/17/2025 3 :10 PM CDT Prior with demise (HCC) 24 weeks gestation of (HCC) Bicornate uterus Encounter for follow-up ultrasound of anatomy (HCC) Encounter for ultrasound to assess growth (HCC) SONOGRAM - COMPLETE Routine 03/12/2025 8 :13 AM CDT Prior with demise (HCC) 20 weeks gestation of (HCC) Bicornate uterus Encounter for anatomic survey (HCC) from Last 3 Months Results * Sonogram - Complete (05/18/2025 7:38 AM CDT) Only the most recent of3 resultswithin the time period is included. Linked Results Indication ======== Encounter for other screening follow-up renal dilatation Bicornuate uterus complicating Supervision of high risk prior 20 wk demise History ====== OB History 2. Para 1 [id number] 1. miscarriage (20 - 23 weeks) Lab Tests Test Date Result NIPT Low risk, Male Maternal Assessment Physical Exam Height 170 cm, 5 ft 7 in. Weight 104 kg, 229 lb. Initial weight 94 kg, 208 lb. BMI 35.87 kg/m . Initial BMI 32.58 kg/m . Weight gain 10 kg, 21 lb Method ====== Transabdominal ultrasound. View: Sufficient ========= Bonilla . Number of fetuses: 1 Dating ====== Date Details Gest. age BEBE LMP 10/25/2024 29 w + 2 d 08/01/2025 Stated BEBE 29 w + 2 d 08/01/2025 Previous U/S 12/29/2024 CRL 30.0 mm 29 w + 6 d 07/28/2025 U/S 05/18/2025 based upon AC, BPD, Femur, HC 32 w + 0 d 07/13/2025 Assigned dating based on the LMP, selected on 01/22/2025 29 w + 2 d 08/01/2025 General Evaluation Cardiac activity present. FHR 136 bpm. Presentation: transverse, head maternal left Placenta: Placental site: posterior Umbilical cord: Cord vessels: 3 vessel cord. Insertion site: normal insertion Amniotic fluid: Amount of AF: normal. MVP 9.0 cm. ITALIA 22.1 cm. Q1 9.0 cm, Q2 2.2 cm, Q3 7.2 cm, Q4 3.7 cm Biometry BPD 80.9 mm 32w 3d 99% Hadlock HC 299.9 mm 33w 2d 99% Hadlock AC 287.0 mm 32w 5d >99% Hadlock Femur 56.1 mm 29w 4d 41% Hadlock Humerus 49.4 mm 29w 0d 36% Rachael HC / AC 1.04 Weight Calculation: EFW 1,840 g 98% Hadlock EFW (lb,oz) 4 lb 1 oz EFW by Hadlock ([id number]) Urinary Tract Biometry: Rt Renal pelvis ap 5.2 mm Lt Renal pelvis ap 2.5 mm LGA Growth Overview Exam date GA BPD (mm) HC (mm) AC (mm) FL (mm) HL (mm) EFW (g) 03/12/2025 19w 5d 49.8 93% 180.7 77% 165.7 93% 34.2 78% 31.7 82% 402 98% 04/17/2025 24w 6d 69 >99% 244.3 85% 227.1 95% 45.3 40% 924 94% 05/18/2025 29w 2d 80.9 99% 299.9 99% 287 >99% 56.1 41% 49.4 36% 1840 98% Anatomy The following structures appear normal: Head / Neck Cavum septi pellucidi. Heart / Thorax 8-kynuyv-ognmlve view. Abdomen Stomach. Kidneys. Bladder. The following structures were documented previously: Head / Neck Cranium. Lateral ventricles. Choroid plexus. Midline falx. Cerebellum. Cisterna magna. Thalami. Nuchal fold. Face Lips. Profile. Nose. Nasal bone. Orbits. Heart / Thorax 4-chamber view. RVOT view. LVOT view. 3-vessel view. Situs. Aortic arch view. Bicaval view. Ductal arch view. Great vessels. Right lung. Left lung. Diaphragm. Abdomen Cord insertion. Bowel. Genitals. Spine Cervical spine. Thoracic spine. Lumbar spine. Sacral spine. Extremities / Skeleton Arms. Hands. Legs. Feet. Impression ========= Single, live, intrauterine at 29w 2d The size is LGA The amniotic fluid volume is mildly increased No evidence of urinary tract dilation (UTD) today Comment ======== U/S cannot detect all structural, genetic, or functional , placental, or maternal abnormalities Follow-up ======== Review screening results for GDM Follow up ultrasound in 4 weeks for growth assessment Coding ====== Diagnoses O09.93: Supervision of high risk O34.03: Maternal care for congenital malformation of uterus O35.EXX0: Maternal care for other (suspected) abnormality and damage, genitourinary anomalies Procedures 24017: US Preg Uterus Follow Up [facility] [employer] PACS Anatomical Region Laterality Modality Other 05/18/2025 7:38 AM CDT Chaya Torres MD [facility] ORDERABLES Edited Result - Final from Last 3 Months Insurance [facility]
--- OUTSIDE RECORDS SUMMARY | 2025-05-18 16:51 | XMS_ITS | Encounter Summary ---
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) Encounter for follow-up ultrasound of anatomy (HCC) Encounter for ultrasound to assess growth (HCC) Procedures Sonogram - Complete Chaya Torres MD [address] [place] [address] Phone: tel: fax: Referral ID Status Reason Start Date Expiration Date Visits Re quested Visits Authorized [id number] Open 05/08/2025 05/08/2026 3 3 * (Routine) - Open Specialty Diagnoses / Procedures Referred By Sapna t Referred To Contact Diagnoses Prior with demise (HCC) 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) Encounter for follow-up ultrasound of anatomy (HCC) Encounter for ultrasound to assess growth (HCC) Procedures Sonogram - Complete Chaya Torres MD [address] [place] [address] Phone: tel: fax: Referral ID Status Reason Start Date Expiration Date Visits Re quested Visits Authorized [id number] Open 05/08/2025 05/08/2026 3 3 Reason for Visit * Reason Comments Ultrasound * (Routine) - Open Specialty Diagnoses / Procedures Referred By Contac t Referred To Contact Diagnoses Prior with demise (HCC) 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) Encounter for follow-up ultrasound of anatomy (HCC) Encounter for ultrasound to assess growth (HCC) Procedures Sonogram - Complete Chaya Torres MD [address] [facility] [address] [place] [address] Phone: tel: fax: Referral ID Status Reason Start Date Expiration Date Visits Re quested Visits Authorized [id number] Open 05/08/2025 05/08/2026 3 3 Encounter Details Date Type Department Care Team (Late st Contact Info) Description 05/18/2025 7:30 AM CDT Hospital Encounter [facility]aternal & Care [address] [place] [id number] Russ Mcdonald MD [address] [address] Social History Tobacco Use Types Packs/Day Years [...] as of this encounter Plan of Treatment Scheduled Orders Name Type Priority Associated Diagnoses Orde r Schedule Sonogram - Complete [facility] Routine Prior with demise (HCC) 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) Encounter for follow-up ultrasound of anatomy (HCC) Encounter for ultrasound to assess growth (HCC) 3 Occurrences starting 05/08/2025 until 05/08/2026, 1 completed documented as of this encounter Procedures Procedure Name Priority Date/Time Associated Diagnosis Comments SONOGRAM - COMPLETE Routine 05/18/2025 7 :38 AM CDT Prior with demise (HCC) 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 Para 1 [id number] 1. miscarriage (20 - 23 weeks) Lab [...] 4 lb 1 oz EFW by Hadlock ([id number]) Urinary Tract Biometry: Rt Renal pelvis ap [...] Neck Cavum septi pellucidi. Heart / Thorax 5-jymnrt-zqokglg view. Abdomen Stomach. Kidneys. Bladder. 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
--- OUTSIDE RECORDS SUMMARY | 2025-05-18 16:51 | XMS_ITS | Clinical Summary ---
Author Organization [facility] Health Address [address] [place] [address] Care Team Providers Care Marshmallow Machine Operator Name Role Phone Unavailable Primary Care Provider Unavailabl e Social History Tobacco Use Types Packs/Day Years Used Date Smoking Tobacco: Never Assessed Comments Unknown Sex and Gender Information Value Date Recorded Sex Assigned at Not on file Legal Sex Female 7:51 AM PST Gender Identity Not on file Sexual Orientation Not on file Plan of Treatment Not on file Insurance [facility]
--- OUTSIDE RECORDS SUMMARY | 2025-05-18 16:51 | XMS_ITS | Encounter Summary ---
Author Organization [facility] Health Address [address] [place] [address] Care Team Providers Care Lap Checker Name Role Phone Unavailable Primary Care Provider Unavailabl e Prior Encounters Date Type Department Care Team Description 11/20/2019 Converted CPS Chart Documents [facility] [place] [address] [place] [id number] <No scans attached> 11/20/2019 Converted 13x [place] [address] <No scans attached> Plan of Treatment [...] EDT Visit Diagnoses Not on file Insurance [facility] PP
--- OUTSIDE RECORDS SUMMARY | 2025-05-18 16:51 | XMS_ITS | Data Portability ---
Author Organization [place] [facility] Address [address] [place] [address] Assessment Encounter Date Assessment Date Assessment LastModified [...] moment, she does not have neurological deficits [email or web address] Not available 11/11/2023 16:48:17 12/03/2023 12/03/2023 ASSESSMENT [...] hip abduction MMT to 4/5 or greater Jail (To be accomplished in 6 weeks) 1. [...] XR, lumbar spine 2023 024 deanna Loza, [facility] [place], [address], 4 16:47:32 XR, pelvis 2023 024 [email or web address] [facility], [address] [place], [address], 4 16:47:37 Medication Orders Medrol (Jack) 4 mg tablets in a dose pack 2023 024 [email or web address] [id number] [facility] [employer], [address] [place], [address], 16:11:50 Patient TargetsNo targets recorded. Patient Instructions Encounter Date Encounter Id Patient Instructions Last Modified By Organization Details Last Modified Time 11/11/2023 [id number] We reviewed the nature of their condition as well as conservative treatment and activity level modification. We reviewed exercises and discussed avoidance of repetitive impacting activities. We recommend the use of rest, ice and elevation as needed for symptom improvement. We discussed options including observation, topicals, anti-inflammatori es, therapy, injections, surgery. [email or web address] Not available 11/11/2023 09:56:57 Reason for Referral Physical Therapist Referral for Low back pain PHYSICAL THERAPY Lumbar Spine-Evaluate and [email or web address] a week for 6-8 weeks Referring Physician: Brigida Walker, Pain Management, Encounter Date: 11/11/2023 Results Created Date Observation Date Name Description Value Unit Range Abnormal Flag Note LastModifiedBy Organization Detail LastModifiedTime 11/11/19 24 XR, lumba r spine No observ ation record ed. [email or web address] [facility] [address] [place], [address], 11/11/2023 16:47:32 11/11/19 24 XR, pelvi s No observ ation record ed. [facility] [address] [place], [address], 11/11/2023 16:47:36 Result Notes None recorded. Problems Name Problem SNOMED Code Status Onset Date Resolution Date Notes Provider Name and Address Organization Details Recorded Time Low back pain [id number] Active [address] [place], [place] - -[facility] 11/11/2023 15:18:08 Problem Notes None recorded. Procedures Surgical History Date Name Laterality Status Provider Name and Address Organization Details Recorded Time 4 64962: Therapeutic Exercise completed Yeison Elise, PT, DPT, OCS, OMT-C [address] [place], [place], [address] [place] [address], [facility] - -[facility] 12/03/2023 12:56:00 4 OT/PT Time In/Out completed Yeison Elise, PT, DPT, OCS, OMT-C [address] [place], [place], [address] [place] [address], [facility] - -[facility] 12/03/2023 12:56:03 4 [address] PT New Eval, Low Complexity completed Yeison Elise, PT, DPT, OCS, OMT-C [address] [place], [address], [facility] - -[facility] 12/03/2023 12:15:13 Imaging Results None recorded. 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 Family History Nothing Reported. Medical History No medical history recorded. Gynecological HistoryNo gynecological history recorded. Obstetrics History GPAL:G 0 P 0 0 0 0 Past Encounters Encounter ID Performer Location Encounter Start Date Encounter Closed Date Diagnosis/Indication Diagnosis SNOMED-CT Code Diagnosis ICD10 Code Diagnosis Note [id number] DEMETRIO CORREIA [address] [place] [address] 11/11/2023 14:39:15 11/11/2023 16:06:02 Low back pain 962525276 M54.50 [id number] Yeison Elise, PT, DPT, OCS, OMT-C Therapy_L [address] [address] 12/03/2023 12:11:32 12/03/2023 12:57:14 Low back pain 443720291 M54.50 Pain radia ting to left leg [id number] M79.605 Health Concerns Section Related Observation LastModified by Organization Detai ls LastModified Time None Recorded Concern Status LastModified by Organization Details LastModified Time None Recorded Advance Directives Directive None Recorded Payers Insurance Date Sequence Insurance Name Policy Number Policy Park Covered Member ID Park Member ID Guarantor Name 01/09/2024 1 [facility] (O) [id number] Charlene Somers [id number] Екатерина Cameron Notes Date Note Type [...] with an optometry/ophthalmi c surgery office in [place]. Hobbies/pursuits include caring for her three year old step-son and spend time with her family. Yeison Elise, PT, DPT, OCS, OMT-C [address] [place], [address], [facility] - -[facility] 12/03/2023 13:01:07 OBGyn Episode No OBEpisode recorded.
--- OUTSIDE RECORDS SUMMARY | 2025-05-18 16:51 | XMS_ITS | Continuity of Care Document ---
Author Organization [facility] Address [address] [place] [address] Care Team Providers Care Slate Mixer Name Role Phone Unavailable Unavailable Unavailable Medications Medication Instructions Dosage Effective Dates (start - stop) Status Comments NEXPLANON 68 MG IMPLANT - Ac tive Procedures Procedure Date Level III OV New Urnls Dip Stick/tablet Rgnt Auto 2016 Cul Bact [place] Cnt Urine 17 Culture Bct Isol&prsmptv Id [place] Antmcrb Microdil/agar Ea Multi Advance Directives Directive Yes / No Effective Date File Name No Information Encounters Encounter Description Practice Location Reason(s) For Visit Diagnoses Date Provider Providers Copied on Encounter Level III [facility], [address], [place], [place], [id number], Brule Cystitis, unspecified with hematuria 7 No Information Referring Provider: Abe Kebede, [address], [place], [address]. [facility], [address], [place], [place], [id number], [facility] Cystitis, unspecified with hematuria 7 Yuriy Fish. [address], [place], [address], . Family History Family Member Type Diagnosis Age At Onset Sister Problem (finding) Anxiety/Depression Mother Problem (finding) Kidney Stone Father Problem (finding) Anxiety/Depression Mother Problem (finding) Anxiety/Depression Aunt Problem (finding) Breast Cancer Grandmother Problem (finding) Breast Cancer Mother Problem (finding) Diabetes Payers Payer name Insurance type Covered green party ID Authoriza tioral(s) [place] Preferred Blue CI [id number] [facility] CI [id number] Social History Type Description Quantity Date Captured [...]
[2025-05-18 17:04] LABS: Hematocrit 34.8 % (37.0-47.0); Hemoglobin 10.8 g/dL (12.0-15.0); Immature Granulocyte Percent A 0.8 % (0-0.5); Lymphocytes Absolute Auto 2.05 K/mm3 (0.9-3.2); Mean Corpuscular HGB Conc 31.0 g/dl (32-36); Mean Corpuscular Hemoglobin 25.8 pg (26-34); Mean Corpuscular Volume 83.1 fl (80-100); Nucleated Red Blood Cells Absolute Auto 0.000 K/mm3 (0.0-0.012); Nucleated Red Blood Cells Perc 0.0 % (0.0-0.2); Platelet Count Result 200 k/mm3 (150-375); Red Blood Count 4.19 M/mm3 (4.2-5.4); White Blood Count 14.4 K/mm3 (4.5-10.0)
[2025-05-18 18:05] LABS: HIV 1/2 Ab P24 Ag Result Negative (Negative)
[2025-05-18 20:31] LABS: Syphilis IgG/IgM Antibody Non-Reactive (Nonreactive)
== END 2025-05-18 16:48 | disposition home or self-care (01) ==
LOC: ANHLAB 16:49
PROVIDERS: Visit Provider Obstetrics & Gynecology
DX: Z34.90 Encounter for supervision of normal pregnancy, unspecified, unspecified trimester (principal); Z20.828 Contact with and (suspected) exposure to other viral communicable diseases
CPT/HCPCS: 36415; 85025; 86593; 86703; G0432

== ENCOUNTER 2025-06-05 06:16 | Outpatient (RCR) | payer BC, OTHER, SELFPAY ==
--- OUTSIDE RECORDS SUMMARY | 2025-06-04 17:00 | XMS_ITS | Clinical Summary ---
Author Organization [facility] Address [address] [place] [address] Care Team Providers Care Appraiser Real Estate Name Role Phone Unavailable Primary Care Provider Unavailabl e Source Comments [facility],non-owned Affiliates and Associated Physician Practices is amultiple site organization consisting of ambulatory clinics and hospital sitesin [place], [place], [place] and [place]. This disclosure is being madepursuant to the Care Everywhere program and may not contain all information available regarding this patient. Last updated 18.[facility] Allergies No known active allergies Active Problems Problem Noted Date Diagnosed Date Nuchal translucency of fetus on ultraso und 01/16/2025 Prior with demise 01/16/2025 Overview (01/16/2025): 20 weeks; retained placenta and D&C Estimated Date of Delivery Comme nts Yes 08/01/2025 Based on last me nstrual period of 10/25/2024 Encounters Date Type Department Care Team Description 05/18/2025 7:30 AM CDT - 05/18/2025 11:59 PM CDT Hospital Encounter [facility] [address] [place] [address] Russ Mcdonald MD Discharge Disposition: Home or Self Care 04/17/2025 3:15 PM CDT - 04/17/2025 11:59 PM CDT Hospital Encounter [facility] [address] [place] [address] Stephan Allen MD Discharge Disposition: Home or Self Care 03/12/2025 8:15 AM CDT - 03/12/2025 11:59 PM CDT Hospital Encounter [facility] [address] [place] [phone] Isaac Castillo MD Discharge Disposition: Home or [...] Care Team (Late st Contact Info) Description 06/25/2025 7:30 AM CDT Appointment [facility] [address] [place] [phone] 07/23/2025 7:30 AM CDT Appointment [facility] [address] [place] [phone] Health Maintenance Due Date Last Done Comments [...] History ====== OB History 2. Para 1 [id number] 1. miscarriage (20 - 23 weeks) Lab [...] Amount of AF: normal. MVP 9.0 cm. ITLAIA 22.1 cm. Q1 9.0 cm, Q2 2.2 [...] 4 lb 1 oz EFW by Hadlock ([id number]) Urinary Tract Biometry: Rt Renal pelvis ap [...] Neck Cavum septi pellucidi. Heart / Thorax 7-lhvlay-zmuxypg view. Abdomen Stomach. Kidneys. Bladder. The following [...] (suspected) abnormality and damage, genitourinary anomalies Procedures 86881: US Preg Uterus Follow Up [facility] [employer] PACS Anatomical Region Laterality Modality Other 05/18/2025 7:38 AM CDT Chaya Torres MD [facility] ORDERABLES Edited Result - Final from Last 3 Months Insurance [facility]
--- OUTSIDE RECORDS SUMMARY | 2025-06-04 17:00 | XMS_ITS | Clinical Summary ---
Author Organization [facility] Health Address [address] [place] [address] Care Team Providers Care Pump And Still Operator Name Role Phone Unavailable Primary Care Provider Unavailabl e Social History Tobacco Use Types Packs/Day Years Used Date Smoking Tobacco: Never Assessed Comments Unknown Sex and Gender Information Value Date Recorded Sex Assigned at Not on file Legal Sex Female 7:51 AM PST Gender Identity Not on file Sexual Orientation Not on file Plan of Treatment Not on file Insurance [facility]
--- OUTSIDE RECORDS SUMMARY | 2025-06-04 17:00 | XMS_ITS | Continuity of Care Document ---
Author Organization [facility] Address [address] [place] [address] Care Team Providers Care Drug Abuse Social Worker Name Role Phone Unavailable Unavailable Unavailable Medications Medication Instructions Dosage Effective Dates (start - stop) Status Comments NEXPLANON 68 MG IMPLANT - Ac tive Procedures Procedure Date Level III OV New Urnls Dip Stick/tablet Rgnt Auto 2016 Cul Bact [place] Cnt Urine 17 Culture Bct Isol&prsmptv Id [place] Antmcrb Microdil/agar Ea Multi Advance Directives Directive Yes / No Effective Date File Name No Information Encounters Encounter Description Practice Location Reason(s) For Visit Diagnoses Date Provider Providers Copied on Encounter Level III [facility], [address], [place], [place], [id number], [place] Cystitis, unspecified with hematuria 7 No Information Referring Provider: Abe Kebede, [address], [place], [address]. [facility], [address], [place], [place], [id number], [facility] Cystitis, unspecified with hematuria 7 Yuriy Fish. [address], [place], [address], . Family History Family Member Type Diagnosis Age At Onset Sister Problem (finding) Anxiety/Depression Mother Problem (finding) Kidney Stone Father Problem (finding) Anxiety/Depression Mother Problem (finding) Anxiety/Depression Aunt Problem (finding) Breast Cancer Grandmother Problem (finding) Breast Cancer Mother Problem (finding) Diabetes Payers Payer name Insurance type Covered alliance party ID Authoriza tioral(s) [place] Preferred Blue CI [id number] [facility] CI [id number] Social History Type Description Quantity Date Captured [...]
--- OUTSIDE RECORDS SUMMARY | 2025-06-04 17:00 | XMS_ITS | Encounter Summary ---
Author Organization [facility] Health Address [address] [place] [address] Care Team Providers Care Casino Cage Cashier Name Role Phone Unavailable Primary Care Provider Unavailabl e Prior Encounters Date Type Department Care Team Description 11/20/2019 Converted CPS Chart Documents [facility] [address] [place] [phone] <No scans attached> 11/20/2019 Converted 13x [place] [phone] <No scans attached> Plan of Treatment [...] EDT Visit Diagnoses Not on file Insurance [facility] PP
[2025-06-05] MEDS: RHO(D) IMMUNE GLOBULIN 300 MCG/2 ML SYRINGE IM (20:07)
== END 2025-06-05 07:00 | disposition home or self-care (01) ==
LOC: ANHLAB 06:16
PROVIDERS: Visit Provider Obstetrics & Gynecology
DX: Z29.13 Encounter for prophylactic Rho(D) immune globulin (principal); O36.0130 Maternal care for anti-D [Rh] antibodies, third trimester, not applicable or unspecified; Z3A.34 34 weeks gestation of pregnancy
CPT/HCPCS: 36415; 59025; 76819; 85461; 86850; 86900; 86901; 90384; 96372; J2790

== ENCOUNTER 2025-06-25 12:52 | Emergency (ER) | payer BC, OTHER, SELFPAY ==
[2025-06-25 12:56] VITALS: BP 132/91; PULSE 107; RESP 18; TEMP 36.6; O2SAT 100
--- NOTE | 2025-06-25 13:02 | ED.URI ---
HPI - URI/Sore Throat General Chief Complaint: Upper Respiratory Infection Stated Complaint: Congestion/Cough/SOB Time Seen by Provider: 06/25/25 13:04 Source: patient, RN notes reviewed and old records reviewed Mode of arrival: ambulatory Limitations: no limitations History of Present Illness HPI Narrative: 24-year-old female presents to the [facility] with a cough, chest congestion and shortness of breath since last night. Has taken 1 Mucinex and a Tylenol. Denies any chest pain. Patient is 35 weeks . States that she call Dr. Torres office and was referred to the [facility]. Onset (ago): day(s) (1) Treatments prior to arrival: acetaminophen and other (Mucinex) Related Data Home Medications ?Medication ?Instructions ?Recorded ?Confirmed ?Last Taken ?Type buspirone 15 mg tablet 15 mg PO DAILY 12/13/24 06/25/25 06/05/25 13:00 History 15 mg vits 75-iron 28 mg-folic See Rx Instructions PO .COMPLEX 12/13/24 06/25/25 06/04/25 20:00 History acid 800 mcg-omega-3 oral combo pack (One A Day Women's DHA) sertraline 100 mg tablet 150 mg PO DAILY 12/13/24 06/25/25 06/04/25 20:00 History 150 mg ferrous sulfate 325 mg (65 mg 325 mg PO DAILY 06/19/25 06/25/25 Unknown History iron) tablet Allergies Allergy/AdvReac Type Severity Reaction Status Date / Time No Known Allergies Allergy Verified 06/25/25 12:58 Review of Systems Review of Systems: All systems reviewed & are unremarkable except as noted in HPI and below Constitutional: Constitutional: Reports no additional constitutional complaints ENT: Reports system reviewed and no additional complaints, except as documented Cardiovascular: Cardiovascular: Reports no additional cardiovascular complaints, Denies chest pain and Denies dyspnea Respiratory: Respiratory: Reports as per HPI, Reports chest congestion, Reports cough and Reports dyspnea Musculoskeletal: Musculoskeletal: Reports no additional musculoskeletal complaints Integumentary/Breasts: Skin/Breast: Reports system reviewed and no additional complaints, except as docu PMFSH Past Medical History Medical History Reflux nephropathy Surgical History Surgical History H/O dilation and curettage aug 08 2024 Family History Family History Other Diabetes mellitus Social History Social History Smoking status: Former smoker Tobacco type: e-cigarettes/vaping Second hand tobacco smoke exposure: Yes Additional smoking assessment comments: Used to vape. 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 There is no relevant family history pertinent to the patient complaint. Exam Const: General: cooperative, healthy appearing, comfortable, no acute distress, well developed, alert and well nourished Nutritional Appearance: well nourished Orientation/consciousness: patient oriented x3 Limitations: no limitations HENMT: Head: normal to inspection Ears: hearing grossly normal bilaterally, external ears normal, TM's normal bilaterally, EAC's normal, mastoids normal and no periauricular adenopathy Face/Nose/Sinus: Normal external nose present Mouth: Yes Normal oral and palatal mucosa present, Yes lip normal, Yes tongue normal and Yes moist mucous membranes Throat: posterior oropharynx normal, uvula midline and no uvular edema Eyes: General: appearance normal, both eyes and all related structures Alignment and Position: alignment normal Neck: Neck: normal visual inspection, full ROM, no lymphadenopathy and no meningeal signs Chest: Chest palpation & inspection: normal inspection of the chest Resp: Effort & Inspection: normal respiratory effort and able to speak in complete sentences Auscultation: clear to auscultation bilaterally, no crackles, no rales, no rhonchi and no wheezes Cardio: Rate: regular rate Skin: General skin exam: normal color and no rashes or lesions noted Neuro: General: patient oriented x3, gait normal, moves all extremities and no meningeal signs Cognition (Neuro): normal cognition Speech: normal speech Gait exam (Neuro): Normal gait present Extrem: General: normal to inspection, full ROM, capillary refill normal and normal gait Psych: Appearance: grossly normal and well kempt Mental Status: mental status grossly normal Speech and movement: Normal speech and movement present and Clear speech present Affect: normal affect Attitude: cooperative Course Course Level of Care: Express Care Visit Vital Signs Vital signs: Vital Signs Temperature 97.8 F 06/25/25 12:56 Pulse Rate 107 H 06/25/25 12:56 Respiratory Rate 18 06/25/25 12:56 Blood Pressure 132/91 H 06/25/25 12:56 Pulse Oximetry 100 06/25/25 12:56 Oxygen Delivery Room Air 06/25/25 12:56 Temperature 97.8 F 06/25/25 12:56 Pulse Rate 107 H 06/25/25 12:56 Respiratory Rate 18 06/25/25 12:56 Blood Pressure 132/91 H 06/25/25 12:56 Pulse Oximetry 100 06/25/25 12:56 Oxygen Delivery Room Air 06/25/25 12:56 Reviewed Transfer Transfered to: Pete (L/D) Transportation: Other Transfer rationale: While patient is here, patient started spotting, requesting to go to Labor and delivery Accepting physician: Spoke with Claudia CARTAGENA MDM - URI/Sore Throat MDM Narrative Medical decision making narrative: Patient reports that she was referred to clinic by her OBGYN. States that she has had a cough, chest congestion since yesterday. COVID test positive Flu test negative While patient was in clinic she use the restroom, reports spotting. Concern for being , patient updated on positive COVID test, patient walked at a clinic. Called Labor and delivery to let them know patient is on the way, COVID positive. Spoke with Claudia CARTAGENA, charge nurse Some parts of this dictation were generated by voice recognition software and may contain typographical and/or grammatical inaccuracies. Differential Diagnosis Differential diagnosis: Likely upper respiratory infection, otitis media, sinusitis, viral infection, bronchitis, influenza and pharyngitis Lab Data Labs: Lab Results 06/25/25 Range/Units 13:20 POC Influenza A Ag Negative (Negative) POC Influenza B Ag Negative (Negative) POC SARS CoV-2 Ag Positive (Negative) Reviewed Critical Care Time Critical Care Time Critical Care Time: No Discharge Plan Discharge Clinical Impression: COVID-19 Patient Disposition: Acute Care Hospital Condition: Stable Instructions: Antibiotic Form, Postnasal Drip (DC), COVID-19 (Coronavirus Disease 2019) (ED) Additional Instructions: Follow-up with Ob Today your flu and COVID test were negative Continue taking [id number] products per guidelines from OB For new or worsening symptoms go directly to Labor and delivery Patient Language: Persian Prescriptions: No Action buspirone 15 mg tablet 15 mg PO DAILY sertraline 100 mg tablet 150 mg PO DAILY One A Day Women's DHA 28 mg iron- 800 mcg combo pack See Rx Instructions PO .COMPLEX Rx Instructions: orally; ferrous sulfate 325 mg (65 mg iron) tablet 325 mg PO DAILY riboflavin (vitamin B2) 400 mg tablet 400 mg PO QHS Qty: 30 1RF magnesium oxide 400 mg magnesium tablet 400 mg PO QHS Qty: 30 1RF Follow-up/Referrals: Chaya Torres MD [Physician, STOCK PITCHER] - 1 Week PHYSICIAN,SUPERCHARGER REPAIR SUPERVISOR [Primary Care Provider, Internal Medicine] Stand Alone Forms: Work/School Release IP Time of Disposition: 13:36
[2025-06-25 13:59] LABS: EDCOVIDSCREEN Positive (Negative); EDINFLUASCREEN Negative (Negative); EDINFLUBSCREEN Negative (Negative)
== END 2025-06-25 13:45 | disposition short-term general hospital (02) ==
PROVIDERS: Emergency Provider Nurse Practitioner
DX: O98.513 Other viral diseases complicating pregnancy, third trimester (principal); U07.1 COVID-19; Z3A.35 35 weeks gestation of pregnancy; Z87.891 Personal history of nicotine dependence
CPT/HCPCS: 87426; 87804; 99212; G0463

== ENCOUNTER 2025-06-25 14:03 | Observation (INO) | payer BC, OTHER, SELFPAY ==
--- OUTSIDE RECORDS SUMMARY | 2025-06-25 07:30 | XMS_ITS | Encounter Summary ---
Author Organization [facility] Address 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) Encounter for follow-up ultrasound of anatomy (HCC) Encounter for ultrasound to assess growth (HCC) Procedures Sonogram - Complete Chaya Torres MD [address] [place] [address] Phone: tel: fax: Referral ID Status Reason Start Date Expiration Date Visits Re quested Visits Authorized [id number] Open 05/08/2025 05/08/2026 3 3 Reason for Visit * Reason Comments Ultrasound * (Routine) - Open Specialty Diagnoses / Procedures Referred By Sapna marquez Referred To Contact Diagnoses Prior with demise (HCC) 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) Encounter for follow-up ultrasound of anatomy (HCC) Encounter for ultrasound to assess growth (HCC) Procedures Sonogram - Complete Chaya Torres MD [address] [place] [address] Phone: tel: fax: Referral ID Status Reason Start Date Expiration Date Visits Re quested Visits Authorized [id number] Open 05/08/2025 05/08/2026 3 3 Encounter Details Date Type Department Care Team (Late st Contact Info) Description 06/25/2025 7:30 AM CDT Hospital Encounter [facility] [address] [place] [id number] Nanci Huston MD [address] [phone] Social History Tobacco Use Types Packs/Day Years [...] as of this encounter Plan of Treatment Upcoming Encounters Date Type Department Care Team ([facility] Contact Info) Description 07/16/2025 7:30 AM CDT Appointment [facility] [address] [place] [address] Nanci Huston MD [address] [address] documented as of this encounter Procedures Procedure Name Priority Date/Time Associated Diagnosis Comments SONOGRAM - COMPLETE Routine 06/25/2025 7 :53 AM CDT Prior with demise (HCC) 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 Para 1 [id number] 1. miscarriage (20 - 23 weeks) Lab Tests Test Date Result NIPT Low risk, Male Maternal Assessment Physical Exam Height 170 cm, 5 ft 7 in. Weight 109 kg, 241 lb. Initial weight 94 kg, 208 lb. BMI 37.75 kg/m . Initial BMI 32.58 kg/m . Weight gain 15 kg, 33 lb Method ====== Transabdominal ultrasound. View: Sufficient ========= Bonilla . Number of fetuses: 1 Dating ====== Date Details Gest. age BEBE LMP 10/25/2024 34 w + 5 d 08/01/2025 Stated BEBE 34 w + 5 d 08/01/2025 Previous U/S 12/29/2024 CRL 30.0 mm 35 w + 2 d 07/28/2025 U/S 06/25/2025 based upon AC, BPD, Femur, HC 37 w + 2 d 07/14/2025 Assigned dating based on the LMP, selected on 01/22/2025 34 w + 5 d 08/01/2025 General Evaluation Cardiac activity present. FHR 133 bpm. Presentation: breech Placenta: Placental site: right lateral Amniotic fluid: Amount of AF: polyhydramnios. MVP 8.5 cm. ITALIA 24.5 cm. Q1 8.5 cm, Q2 7.4 cm, Q3 3.2 cm, Q4 5.4 cm Biometry BPD 92.1 mm 37w 3d 98% Hadlock HC 331.8 mm 37w 6d 88% Hadlock AC 352.6 mm 39w 1d >99% Hadlock Femur 67.8 mm 34w 6d 45% Hadlock Humerus 59.0 mm 34w 1d 55% Rachael HC / AC 0.94 Weight Calculation: EFW 3,291 g 99% Hadlock EFW (lb,oz) 7 lb 4 oz EFW by Hadlock (HC-AC-FL) Growth Overview Exam date GA BPD (mm) HC (mm) AC (mm) FL (mm) HL (mm) EFW (g) 03/12/2025 19w 5d 49.8 93% 180.7 77% 165.7 93% 34.2 78% 31.7 82% 402 98% 04/17/2025 24w 6d 69 >99% 244.3 85% 227.1 95% 45.3 40% 924 94% 05/18/2025 29w 2d 80.9 99% 299.9 99% 287 >99% 56.1 41% 49.4 36% 1840 98% 06/25/2025 34w 5d 92.1 98% 331.8 88% 352.6 >99% 67.8 45% 59 55% 3291 99% Anatomy The following structures appear normal: Abdomen Stomach. Kidneys. Bladder. Impression ========= 1) Bonilla gestation, 34w5d 2) Biometry is consistent with accelerated growth 3) There is mild polyhydramnios (MVP 8.5 cm) Comment ======== ultrasound alone cannot detect all structural, genetic, or functional , placental, or maternal abnormalities Follow-up ======== Follow-up ultrasound in ~3 weeks to reevaluate the amniotic fluid and growth Coding ====== Diagnoses O34.03: Maternal care for congenital malformation of uterus O36.63X0: Maternal care for excessive growth Procedures 40693: US Preg Uterus Follow Up Health PACS Anatomical Region Laterality Modality Other 06/25/2025 7:53 AM CDT Chaya Torres MD [facility] ORDERABLES Edited Result - Final documented in this encounter Visit Diagnoses Diagnosis Prior with demise (HCC)- Primary with other poor reproductive history Bicornate uterus Bicornuate uterus Encounter for ultrasound to assess growth (HCC) 34 weeks gestation of (HCC) state, incidental 27 weeks gestation of (HCC) state, incidental Encounter for follow-up ultrasound of anatomy (HCC) documented in this encounter
--- OUTSIDE RECORDS SUMMARY | 2025-06-25 14:20 | XMS_ITS | Clinical Summary ---
Author Organization [facility] Health Address [address] [place] [address] Care Team Providers Care Insulation Power Unit Tender Name Role Phone Unavailable Primary Care Provider Unavailabl e Social History Tobacco Use Types Packs/Day Years Used Date Smoking Tobacco: Never Assessed Comments Unknown Sex and Gender Information Value Date Recorded Sex Assigned at Not on file Legal Sex Female 7:51 AM PST Gender Identity Not on file Sexual Orientation Not on file Plan of Treatment Not on file Insurance [facility]
--- OUTSIDE RECORDS SUMMARY | 2025-06-25 14:20 | XMS_ITS | Clinical Summary ---
Author Organization [facility] Address [address] [address] Care Team Providers Care Cartoon Artist Name Role Phone Unavailable Primary Care Provider Unavailabl e Source Comments [facility],non-owned Affiliates and Associated Physician Practices is amultiple site organization consisting of ambulatory clinics and hospital sitesin [place], [place], [place] and [place]. This disclosure is being madepursuant to the Care Everywhere program and may not contain all information available regarding this patient. Last updated 18.[facility] Allergies No known active allergies Active Problems Problem Noted Date Diagnosed Date Nuchal translucency of fetus on ultraso und 01/16/2025 Prior with demise 01/16/2025 Overview (01/16/2025): 20 weeks; retained placenta and D&C Estimated Date of Delivery Comme nts Yes 08/01/2025 Based on last me nstrual period of 10/25/2024 Encounters Date Type Department Care Team Description 06/25/2025 7:30 AM CDT Hospital Encounter [facility] Maternal & Care [address] [place] [address] Nanci Huston MD 05/18/2025 7:30 AM CDT - 05/18/2025 11:59 PM CDT Hospital Encounter [facility] Maternal & Care [address] [place] [address] Russ Mcdonald MD Discharge Disposition: Home or Self Care 04/17/2025 3:15 PM CDT - 04/17/2025 11:59 PM CDT Hospital Encounter [facility] Maternal & Care [address] [place] [phone] Stephan Allen MD Discharge Disposition: Home or [...] Care Team (Late st Contact Info) Description 07/16/2025 7:30 AM CDT [facility] M[facility] Care [address] [place] [address] Nanci Huston MD [address] [address] Health Maintenance Due Date Last Done Comments HIV SCREENING 2014 HPV VACCINE (1 - 3-dose series) 2014 CHLAMYDIA/GONORRHEA SCREENING 2015 DTAP/TDAP/TD VACCINES (1 - Tdap) 2018 HEPATITIS B VACCINE (1 of 3 - 19+ 3-dose series) 2018 PAP SMEAR 06/25/2024 06/25/2021 COVID-19 VACCINE ( - season) 2024 DEPRESSION SCREENING 11/01/2024 OB-ONE HOUR GLUCOSE 04/25/2025 OB-TDAP CURRENT 05/02/2025 OB-RHOGAM INJECTION 05/09/2025 OB-GROUP B STREP SCREEN 06/27/2025 INFLUENZA VACCINE (#1) 2025 , 08/15/2019, 08/22/2018, [...] assess growth (HCC) SONOGRAM - COMPLETE Routine 05/18/2025 7 :38 [...] Encounter for ultrasound to assess growth (HCC) from Last 3 Months Results * Sonogram - Complete (06/25/2025 7:53 AM CDT) Only the most recent of3 resultswithin the time period is included. Linked Results Indication ======== Screening Follow-Up Suspected excessive growth Bicornuate uterus complicating Maternal obesity complicating , class 1 (BMI 30.0 - 34.9) History ====== OB History 2. Para 1 [id number] 1. miscarriage (20 - 23 weeks) Lab [...] O36.63X0: Maternal care for excessive growth Procedures 55445: US Preg Uterus Follow Up [email or web address] PACS Anatomical Region Laterality Modality Other 06/25/2025 7:53 AM CDT Chaya Torres MD [facility] ORDERABLES Edited Result - Final from Last 3 Months Insurance [facility]
--- OUTSIDE RECORDS SUMMARY | 2025-06-25 14:20 | XMS_ITS | Encounter Summary ---
Author Organization [facility] Health Address [address] [place] [address] Care Team Providers Care Genetic Engineer Name Role Phone Unavailable Primary Care Provider Unavailabl e Prior Encounters Date Type Department Care Team Description 11/20/2019 Converted CPS Chart Documents [facility] [address] [place] [phone] <No scans attached> 11/20/2019 Converted 13x [place] [phone] <No scans attached> Plan of Treatment [...] EDT Visit Diagnoses Not on file Insurance [facility] PP
[2025-06-25 14:30] VITALS: BP 112/69; PULSE 94
[2025-06-25 14:45] VITALS: BP 119/70; PULSE 95
[2025-06-25 15:00] VITALS: BP 117/74; PULSE 92
[2025-06-25 15:15] VITALS: BP 118/75; PULSE 94
--- NOTE | 2025-06-25 15:29 | PC.NURSE ---
Patient up to bathroom prior to discharge, one pin point spot of pink discharge noted on TP. Patient reassured.
--- NOTE | 2025-06-25 15:30 | PC.NURSE ---
Dr Marsh informed of patient being COVID positive at urgent care, informed of slight pink spotting that was noted, reactive tracing, no active bleeding, no contractions. OK to dc home with precautions.
--- NOTE | 2025-07-03 10:46 | PM.OBTRLD ---
OB - Triage/Final Diagnosis Visit Information Reason for evaluation: threatened labor Comments/Additional reasons for admission: I have assessed the risk for this patient, Екатерина Cameron, and determined that she would benefit from observation care.
== END 2025-06-25 15:35 | disposition home or self-care (01) ==
PROVIDERS: Admitting Provider Obstetrics & Gynecology; Visit Provider Obstetrics & Gynecology
DX: O47.03 False labor before 37 completed weeks of gestation, third trimester (principal); Z3A.34 34 weeks gestation of pregnancy
CPT/HCPCS: 87426; 87804; 99212; G0378; G0379; G0463

== ENCOUNTER 2025-07-04 07:20 | Observation (INO) | payer BC, OTHER, SELFPAY ==
--- OUTSIDE RECORDS SUMMARY | 2017-09-01 05:30 | XMS_ITS | Continuity of Care Document ---
Author Organization [facility] Address [address] [place] [address] Care Team Providers Care Chief Operator Name Role Phone Unavailable Unavailable Unavailable Medications Medication Instructions Dosage Effective Dates (start - stop) Status Comments NEXPLANON 68 MG IMPLANT - Ac tive Procedures Procedure Date Level III OV New Urnls Dip Stick/tablet Rgnt Auto 2016 Cul Bact [place] Cnt Urine 17 Culture Bct Isol&prsmptv Id [place] Antmcr[facility] Microdil/agar Ea Multi Advance Directives Directive Yes / No Effective Date File Name No Information Encounters Encounter Description Practice Location Reason(s) For Visit Diagnoses Date Provider Providers Copied on Encounter Level III [facility], [address], [place], [place], [id number], [place] Cystitis, unspecified with hematuria 7 No Information Referring Provider: Abe Kebede, [address], [place], [address]. [facility], [address], [place], [place], [id number], [facility] Cystitis, unspecified with hematuria 7 Yuriy Fish. [address], [place], [address], . Family History Family Member Type Diagnosis Age At Onset Sister Problem (finding) Anxiety/Depression Mother Problem (finding) Kidney Stone Father Problem (finding) Anxiety/Depression Mother Problem (finding) Anxiety/Depression Aunt Problem (finding) Breast Cancer Grandmother Problem (finding) Breast Cancer Mother Problem (finding) Diabetes Payers Payer name Insurance type Covered republican ID Authoriza tioral(s) [place] Preferred Blue CI [id number] [facility] CI [id number] Social History Type Description Quantity Date Captured Comments Sex Female Smoking Status No Information Chief Complaint And Reason For Visit No Information Reason For Referral Reason For Referral No Information History Of Present Illness Encounter Date Complaint History Of Prese nt Illness No Information Functional Status Date Functional Assessmen t No Information Instructions Date Instruction Additional Infor mation No Information Assessments Type Assessment Date No Information Patient Care Teams Name Effective Dates (start - stop) Status Members No Information
[2025-07-04] VITALS (10 sets, daily range): BP systolic 123–139; BP diastolic 65–87; PULSE 75–89; TEMP 36.1; BMI 37.6
--- NOTE | 2025-07-04 07:20 | OBADM ---
This patient, Екатерина Cameron, admitted to the OB room Labor/Delivery/Recovery 119 for observation. Patient/family oriented to hospital policies and general routines including ID bracelet, bed and alarms, visiting hours, pain management, procedures, bathroom and other care routines, personal items, smoking policy, room service/diet, and visiting hours. Patient/Family are encouraged to report perceived risks to care and to ask questions if they do not understand what they are told or what they should do.
--- OUTSIDE RECORDS SUMMARY | 2025-07-04 07:29 | XMS_ITS | Encounter Summary ---
Author Organization [facility] Health Address [address] [place] [address] Care Team Providers Care Mixing Pan Tender Name Role Phone Unavailable Primary Care Provider Unavailabl e Prior Encounters Date Type Department Care Team Description 11/20/2019 Converted CPS Chart Documents [facility] [address] [place] [phone] <No scans attached> 11/20/2019 Converted 13x Documents [...] EDT Visit Diagnoses Not on file Insurance [facility] PP
--- OUTSIDE RECORDS SUMMARY | 2025-07-04 07:29 | XMS_ITS | Clinical Summary ---
Author Organization [facility] Address [address] [place] [address] Care Team Providers [employer] Name Role Phone Unavailable Primary Care Provider Unavailabl e Source Comments [facility],non-owned Affiliates and Associated Physician Practices is amultiple site organization consisting of ambulatory clinics and hospital sitesin [place], [place], [place] and [place]. This disclosure is being madepursuant to the Care Everywhere program and may not contain all information available regarding this patient. Last updated 18.[facility] Allergies No known active allergies Active Problems Problem Noted Date Diagnosed Date Nuchal translucency of fetus on ultraso und 01/16/2025 Prior with demise 01/16/2025 Overview (01/16/2025): 20 weeks; retained placenta and D&C Estimated Date of Delivery Comme nts Yes 08/01/2025 Based on last me nstrual period of 10/25/2024 Encounters Date Type Department Care Team Description 06/25/2025 7:30 AM CDT - 06/25/2025 11:59 PM CDT Hospital Encounter [facility] [address] [place] [id number] Nanci Huston MD Discharge Disposition: Home or Self Care 05/18/2025 7:30 AM CDT - 05/18/2025 11:59 PM CDT Hospital Encounter [facility] [address] [place] [address] Russ Mcdonald MD Discharge Disposition: Home or Self Care 04/17/2025 3:15 PM CDT - 04/17/2025 11:59 PM CDT Hospital Encounter [facility] [address] [place] [id number] Stephan Allen MD Discharge Disposition: Home or [...] Info) Description 07/16/2025 7:30 AM CDT Appointment [facility] [address] [place] [id number] Nanci Huston MD [facility] [place] [address] Health Maintenance Due Date Last Done Comments HIV SCREENING 2014 HPV VACCINE (1 - 3-dose series) 2014 CHLAMYDIA/GONORRHEA SCREENING 2015 DTAP/TDAP/TD VACCINES (1 - Tdap) 2018 HEPATITIS B VACCINE (1 of 3 - 19+ 3-dose series) 2018 PAP SMEAR 06/25/2024 06/25/2021 DEPRESSION SCREENING 11/01/2024 OB-ONE HOUR GLUCOSE 04/25/2025 OB-TDAP CURRENT 05/02/2025 OB-RHOGAM INJECTION 05/09/2025 OB-GROUP B STREP SCREEN 06/27/2025 COVID-19 VACCINE (1 - 2023- season) 2025 INFLUENZA VACCINE (#1) 2025 , 08/15/2019, 08/22/2018, [...] History ====== OB History 2. Para 1 [id number] 1. miscarriage (20 - 23 weeks) Lab [...] O36.63X0: Maternal care for excessive growth Procedures 80415: US Preg Uterus Follow Up [facility] [employer] PACS Anatomical Region Laterality Modality Other 06/25/2025 7:53 AM CDT Chaya Torres MD [facility] ORDERABLES Edited Result - Final from Last 3 Months Insurance [facility]
--- OUTSIDE RECORDS SUMMARY | 2025-07-04 07:29 | XMS_ITS | Clinical Summary ---
Author Organization [facility] Health Address [address] [place] [address] Care Team Providers Care Group Exercise Manager Name Role Phone Unavailable Primary Care Provider Unavailabl e Social History Tobacco Use Types Packs/Day Years Used Date Smoking Tobacco: Never Assessed Comments Unknown Sex and Gender Information Value Date Recorded Sex Assigned at Not on file Legal Sex Female 7:51 AM PST Gender Identity Not on file Sexual Orientation Not on file Plan of Treatment Not on file Insurance [facility]
--- NOTE | 2025-07-05 07:15 | PM.OBTRLD ---
OB - Triage/Final Diagnosis Visit Information Comments/Additional reasons for admission: I have assessed the risk for this patient, Екатерина Cameron, and determined that she would benefit from observation care. Evaluation Vital signs: Vital Signs - 24 hr 07/04/25 07:43 07/04/25 07:45 07/04/25 07:46 Temperature 97 F L Pulse Rate 77 Blood Pressure 139/80 Oxygen Delivery Room Air 07/04/25 08:01 07/04/25 08:16 07/04/25 08:31 Temperature Pulse Rate 83 75 89 Blood Pressure 133/78 128/81 123/78 Oxygen Delivery 07/04/25 08:46 07/04/25 09:01 07/04/25 09:16 Temperature Pulse Rate 78 79 75 Blood Pressure 125/65 125/80 137/87 Oxygen Delivery 07/04/25 09:31 07/04/25 09:46 Temperature Pulse Rate 85 81 Blood Pressure 139/82 136/81 Oxygen Delivery Final Diagnosis (1) Irregular uterine contractions: Code(s): O47.9 - False labor, unspecified Status: Acute
== END 2025-07-04 09:57 | disposition home or self-care (01) ==
PROVIDERS: Admitting Provider Obstetrics & Gynecology; Visit Provider Obstetrics & Gynecology
DX: O47.03 False labor before 37 completed weeks of gestation, third trimester (principal); Z3A.36 36 weeks gestation of pregnancy
CPT/HCPCS: G0378; G0379

== ENCOUNTER 2025-07-10 17:29 | Outpatient (RCR) | payer BC, OTHER, SELFPAY ==
--- NOTE | 2025-06-05 18:09 | PC.NURSE ---
Pt arrives to unit with decreased movement. Orders received by Dr. Torres for NST, BPP, and ITALIA.
--- NOTE | 2025-06-05 18:59 | PC.NURSE ---
Dr. Torres at nurses station, reviews tracing, orders received to remove monitors.
[2025-06-05 19:01] VITALS: BP 130/73; PULSE 85
--- NOTE | 2025-06-05 20:15 | PC.NURSE ---
Called Dr. Torres, update on BPP and ITALIA. Orders received to schedule weekly NST for polyhydramnios and discharge pt with instruction to keep next scheduled appointment and when to return to the unit.
--- NOTE | 2025-06-05 20:30 | PC.NURSE ---
Pt discharged with weekly NST, instructions to keep next scheduled appointment, and when to return to the unit, pt verbalizes understanding.
[2025-06-12 17:04] VITALS: BP 124/77; PULSE 85
[2025-06-18 18:00] VITALS: BP 130/80; PULSE 96
[2025-06-22 11:46] VITALS: BP 137/83; PULSE 93
[2025-06-22 12:01] VITALS: BP 127/78; PULSE 91
[2025-06-22 12:16] VITALS: BP 131/79; PULSE 91
[2025-06-22 12:29] VITALS: BP 137/85; PULSE 97
[2025-06-29 16:54] VITALS: BP 122/65; PULSE 75
[2025-07-05 17:34] VITALS: BP 131/74; PULSE 85
[2025-07-09 16:43] LABS: Hematocrit 35.7 % (37.0-47.0); Hemoglobin 11.1 g/dL (12.0-15.0); Immature Granulocyte Percent A 0.5 % (0-0.5); Lymphocytes Absolute Auto 1.80 K/mm3 (0.9-3.2); Mean Corpuscular HGB Conc 31.1 g/dl (32-36); Mean Corpuscular Hemoglobin 25.3 pg (26-34); Mean Corpuscular Volume 81.3 fl (80-100); Nucleated Red Blood Cells Absolute Auto 0.000 K/mm3 (0.0-0.012); Nucleated Red Blood Cells Perc 0.0 % (0.0-0.2); Platelet Count Result 190 k/mm3 (150-375); Red Blood Count 4.39 M/mm3 (4.2-5.4); White Blood Count 11.1 K/mm3 (4.5-10.0)
[2025-07-09 16:47] LABS: Add Urine Microscopic? YES; Appearance Urine Clear (Clear); Glucose Urine UA Negative (Negative); Leukocyte Esterase Ur 3+ LEU/UL (Negative); Nitrate Urine Negative (Negative); Non Pathogenic Casts 0-2; Specific Grav Ur 1.006 (1.001-1.035)
[2025-07-09 16:51] LABS: Total Protein Urine Random 16 mg/dL; Ur Ttl Prot Creatinine Ratio 0.42 mg/mg (0-0.20)
[2025-07-09 16:57] LABS: Alanine Aminotransferase 14 U/L (6-35); Albumin Level 3.4 g/dL (3.5-5.1); Alkaline Phosphatase 107 U/L (38-126); Anion Gap 7 mmol/L (4-12); Aspartate Amino Transferase 23 U/L (14-36); Bilirubin,Total 0.2 mg/dL (0.2-1.3); Blood Urea Nitrogen 5 mg/dL (7-17); Calcium 8.6 mg/dL (8.4-10.2); Carbon Dioxide 21 mmol/L (22-30); Chloride 107 mmol/L (98-107); Estimated Glomerular Filt Rate > 60; Glucose 85 mg/dL (65-110); Potassium 3.3 mmol/L (3.4-5.0); Sodium 135 mmol/L (137-145); Total Protein 6.7 g/dL (6.3-8.2); Uric Acid 3.7 mg/dL (2.5-7.5)
[2025-07-09 17:31] VITALS: BP 146/83; PULSE 83
--- NOTE | ~2025-07-10 | US_ITS ---
EXAMINATION: US OB BPP wo non-stress DATE: 07/10/2025 20:07 CDT INDICATION: Evaluate well being and amniotic fluid TECHNIQUE: Real-time transabdominal obstetric ultrasound. FINDINGS: Comparison to ultrasound dated 06/05/2025 There is a single living fetus in vertex presentation. The placenta is posterior without placenta previa. cardiac activity and movement is noted with a heart rate of 141 beats per minute. ITALIA is normal measuring 21.4 cm. Biophysical profile: breathin of 2 movement: 2 of 2 tone: 2 of 2 Amniotic flud pocket: 2 of 2 Total score: 8 of 8 IMPRESSION: 1. Single living intrauterine in vertex presentation. 2: Total biophysical profile score of 8/8. 3: Normal ITALIA measures 21.4 cm. Reviewed, dictated and finalized at location O.
--- NOTE | ~2025-07-10 | US_ITS ---
EXAMINATION: US OB BPP wo non-stress DATE: 06/05/2025 21:42 CDT INDICATION: DFM. 2 para 0 TECHNIQUE: Real-time transabdominal obstetric ultrasound. FINDINGS: There is a single intrauterine gestation in breech presentation. The placenta is posterior, along the maternal left. cardiac activity and movement is noted with a heart rate of 152 beats per minute. Biophysical profile: breathin of 2 movement: 2 of 2 tone: 2 of 2 Amniotic fluid pocket: 2 of 2 Total score: 8 of 8 Amniotic fluid index measures 24 cm. IMPRESSION: 1. Single intrauterine gestation in breech presentation. 2: Total biophysical profile score of 8 out of 8. Reviewed, dictated and finalized at location A.
[2025-07-10 18:15] LABS: Hematocrit 34.0 % (37.0-47.0); Hemoglobin 10.6 g/dL (12.0-15.0); Immature Granulocyte Percent A 0.5 % (0-0.5); Lymphocytes Absolute Auto 2.20 K/mm3 (0.9-3.2); Mean Corpuscular HGB Conc 31.2 g/dl (32-36); Mean Corpuscular Hemoglobin 25.4 pg (26-34); Mean Corpuscular Volume 81.5 fl (80-100); Nucleated Red Blood Cells Absolute Auto 0.000 K/mm3 (0.0-0.012); Nucleated Red Blood Cells Perc 0.0 % (0.0-0.2); Platelet Count Result 195 k/mm3 (150-375); Red Blood Count 4.17 M/mm3 (4.2-5.4); White Blood Count 12.4 K/mm3 (4.5-10.0)
[2025-07-10 18:21] LABS: Add Urine Microscopic? YES; Appearance Urine Cloudy (Clear); Glucose Urine UA Negative (Negative); Leukocyte Esterase Ur 3+ LEU/UL (Negative); Nitrate Urine Negative (Negative); Non Pathogenic Casts 0-2; Specific Grav Ur 1.006 (1.001-1.035)
[2025-07-10 18:25] LABS: Alanine Aminotransferase 12 U/L (6-35); Albumin Level 3.3 g/dL (3.5-5.1); Alkaline Phosphatase 121 U/L (38-126); Anion Gap 6 mmol/L (4-12); Aspartate Amino Transferase 21 U/L (14-36); Bilirubin,Total 0.2 mg/dL (0.2-1.3); Blood Urea Nitrogen 5 mg/dL (7-17); Calcium 8.8 mg/dL (8.4-10.2); Carbon Dioxide 21 mmol/L (22-30); Chloride 108 mmol/L (98-107); Estimated Glomerular Filt Rate > 60; Glucose 74 mg/dL (65-110); Potassium 3.4 mmol/L (3.4-5.0); Sodium 135 mmol/L (137-145); Total Protein 6.6 g/dL (6.3-8.2); Uric Acid 3.8 mg/dL (2.5-7.5)
[2025-07-10 23:45] LABS: Total Protein Urine Random 15 mg/dL; Ur Ttl Prot Creatinine Ratio 0.45 mg/mg (0-0.20)
== END 2025-07-14 11:24 | disposition other institution (70) ==
LOC: ANHOBOP 17:29
PROVIDERS: Visit Provider Obstetrics & Gynecology
DX: O26.859 Spotting complicating pregnancy, unspecified trimester (principal)
CPT/HCPCS: 36415; 59025; 76819; 80053; 81001; 82570; 84156; 84550; 85025; 87086

== ENCOUNTER 2025-07-11 05:28 | Inpatient (IN) | payer BC, OTHER, SELFPAY ==
[2025-07-11] VITALS (165 sets, daily range): BP systolic 98–158; BP diastolic 59–98; PULSE 63–191; RESP 16; TEMP 36.1–37.1; O2SAT 83–100
--- NOTE | 2025-07-11 06:13 | WPDANESEPP ---
Anes - Eval Pre Procedure Procedure: Labor epidural Date/Time: 07/11/25 06:13 Surgeon: Brian Preop Diagnosis: Abdominal pain with contractions Pre Op Diagnosis: IOL Patient Data Age: 24 Gender: F Height: Weight: Last Vital Signs Pulse 72 07/11/25 06:00 BP 147/90 H 07/11/25 06:00 Pulse Ox 100 07/11/25 06:09 Allergies Allergy/AdvReac Type Severity Reaction Status Date / Time No Known Allergies Allergy Verified 07/10/25 16:39 Home Medications ?Medication ?Instructions ?Recorded ?Confirmed ?Type buspirone 15 mg tablet 15 mg PO DAILY 12/13/24 07/09/25 History vits 75-iron 28 mg-folic See Rx Instructions PO .COMPLEX 12/13/24 07/09/25 History acid 800 mcg-omega-3 oral combo pack (One A Day Women's DHA) sertraline 100 mg tablet 150 mg PO DAILY 12/13/24 07/09/25 History riboflavin (vitamin B2) 400 mg 400 mg PO QHS #30 tabs 03/14/25 07/09/25 Rx tablet magnesium oxide 400 mg PO QHS #30 tabs 05/16/25 07/09/25 Rx ferrous sulfate 325 mg (65 mg 325 mg PO DAILY 06/19/25 07/09/25 History iron) tablet : gestational age HCG: positive Patient hx anesthesia problems: none Family hx anesthesia problems: none Results Review: All pre-operative results and documents have been reviewed as part of the pre-operative evaluation. [facility] Past Medical History Medical History Obesity Headache Anxiety Reflux nephropathy Surgical History Surgical History H/O dilation and curettage aug 08 2024 Family History Family History Other Diabetes mellitus Social History Social History Smoking status: Former smoker Tobacco type: e-cigarettes/vaping Second hand tobacco smoke exposure: Yes Additional smoking assessment comments: Used to vape. 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
--- NOTE | 2025-07-11 06:17 | LDADM ---
This patient, Екатерина A Null, was admitted to Labor/Delivery/Recovery 104 on 07/11/25 at 05:28. Plans for labor, pain management and were discussed with patient. Patient/family oriented to hospital policies and general routines including ID bracelet, bed and alarms, visiting hours, pain management, procedures, bathroom and other care routines, personal items, smoking policy, room service/diet and guest tray routines, infant security routines, and visiting hours. Patient/Family are encouraged to report perceived risks to care and to ask questions if they do not understand what they are told or what they should do. See OBIX for further documentation.
[2025-07-11 06:44] LABS: Hematocrit 38.2 % (37.0-47.0); Hemoglobin 11.8 g/dL (12.0-15.0); Immature Granulocyte Percent A 0.5 % (0-0.5); Lymphocytes Absolute Auto 1.75 K/mm3 (0.9-3.2); Mean Corpuscular HGB Conc 30.9 g/dl (32-36); Mean Corpuscular Hemoglobin 25.4 pg (26-34); Mean Corpuscular Volume 82.2 fl (80-100); Nucleated Red Blood Cells Absolute Auto 0.000 K/mm3 (0.0-0.012); Nucleated Red Blood Cells Perc 0.0 % (0.0-0.2); Platelet Count Result 194 k/mm3 (150-375); Red Blood Count 4.65 M/mm3 (4.2-5.4); White Blood Count 12.5 K/mm3 (4.5-10.0)
[2025-07-11] MEDS: AMPICILLIN SODIUM 2 GM in SODIUM CHLORIDE 0.9% IV 100 ML 200 ML IVPB (06:52)
[2025-07-11] MEDS: LACTATED RINGERS 1,000 ML 125 ML IV CONT ×3 (06:57→13:29)
[2025-07-11] MEDS: OXYTOCIN 30 UNITS/NS 500 ML 30 UNITS/500 ML BAG IV CONT (07:20)
[2025-07-11 07:30] LABS: Syphilis IgG/IgM Antibody Non-Reactive (Nonreactive)
--- NOTE | 2025-07-11 08:42 | PM.IMHP ---
H&P: HPI History of Present Illness Date/Time: 07/11/25 08:42 Chief Complaint: elevate blood pressure Narrative: Екатерина is a 24yo @ 37.0wks who presents for IOL due to pre-eclampsia w/o severe features. She was diagnosed with elevated blood pressures late last week; has been doing NST for mild polyhydramnios, LGA, h/o IUFD. Labs have been normal except elevated P/C ratio. She denies any symptoms. Her is complicated by: - H/o 20wk demise, complicated by retained placenta/sD&C - Anxiety/depression- sertraline/busprione - Genital HSV; Valtrex ppx @ 36wks - RH negative; needs rhogam - Marginal cord insertion; mild renal dilation - Mild polyhydramnios; weekly NST - BREECH 06/05/25 --> cephalic 07/10/25 - GBS positive - pre-eclampsia w/o severe features Review of Systems Constitutional: Constitutional: Denies chills, Denies fever(s) and Denies headache(s) Eyes: Eyes: Denies change in vision ENT: Denies headache(s) Cardiovascular: Cardiovascular: Denies chest pain and Denies dyspnea Respiratory: Respiratory: Denies dyspnea Genitourinary: Genitourinary: Denies abnormal vaginal bleeding and Denies vaginal discharge Neurologic: Denies headache(s) Psychiatric: Psychiatric: Denies anxiety and Denies depression [facility] Past Medical History Medical History Obesity Headache Anxiety Reflux nephropathy Surgical History Surgical History H/O dilation and curettage aug 08 2024 Family History Family History Other Diabetes mellitus Social History Social History Smoking status: Former smoker Tobacco type: e-cigarettes/vaping Second hand tobacco smoke exposure: Yes Additional smoking assessment comments: Used to vape. Alcohol intake: never Substance use: never Substance use type: does not use Lack of Transportation: No Lack of Food: Never True Current Housing: I Have Housing Concerned About Future Housing: No Difficulty Paying Gas/Electric Bills: No Difficulty Paying for Meds: No Currently Unemployed: No Education: High School Diploma/GED Difficulty w/ Childcare or Family Care: No Living arrangements: with family Occupation/Education: occupation Additional occupation/education comments: [employer] Gender identity (if verbalized by the patient): Female Spiritual care concerns: No Meds Home Medications and Allergies Home Medications ?Medication ?Instructions ?Recorded ?Confirmed ?Type buspirone 15 mg tablet 15 mg PO DAILY 12/13/24 07/09/25 History vits 75-iron 28 mg-folic See Rx Instructions PO .COMPLEX 12/13/24 07/09/25 History acid 800 mcg-omega-3 oral combo pack (One A Day Women's DHA) sertraline 100 mg tablet 150 mg PO DAILY 12/13/24 07/09/25 History riboflavin (vitamin B2) 400 mg 400 mg PO QHS #30 tabs 03/14/25 07/09/25 Rx tablet magnesium oxide 400 mg PO QHS #30 tabs 05/16/25 07/09/25 Rx ferrous sulfate 325 mg (65 mg 325 mg PO DAILY 06/19/25 07/09/25 History iron) tablet Allergies Allergy/AdvReac Type Severity Reaction Status Date / Time No Known Allergies Allergy Verified 07/10/25 16:39 Vital Signs Vital Signs - 24 hr 07/11/25 05:59 07/11/25 06:00 07/11/25 06:04 Temperature Pulse Rate 72 Blood Pressure 147/90 H Pulse Oximetry 100 100 07/11/25 06:09 07/11/25 06:14 07/11/25 06:16 Temperature Pulse Rate 79 77 Blood Pressure 148/94 H 145/87 H Pulse Oximetry 100 100 07/11/25 06:18 07/11/25 06:23 07/11/25 06:30 Temperature 98.7 F Pulse Rate Blood Pressure Pulse Oximetry 99 98 07/11/25 06:43 07/11/25 06:45 07/11/25 06:50 Temperature Pulse Rate Blood Pressure Pulse Oximetry 98 92 100 07/11/25 06:55 07/11/25 07:00 07/11/25 07:01 Temperature Pulse Rate 90 Blood Pressure 143/97 H Pulse Oximetry 100 100 07/11/25 07:02 07/11/25 07:05 07/11/25 07:10 Temperature Pulse Rate 78 Blood Pressure 145/89 H Pulse Oximetry 100 100 07/11/25 07:15 07/11/25 07:16 07/11/25 07:20 Temperature 97.8 F Pulse Rate 77 Blood Pressure 150/90 H Pulse Oximetry 100 100 07/11/25 07:21 07/11/25 07:26 07/11/25 07:31 Temperature Pulse Rate 88 Blood Pressure 156/91 H Pulse Oximetry 100 100 100 07/11/25 07:36 07/11/25 07:41 07/11/25 07:46 Temperature Pulse Rate 75 Blood Pressure 144/83 H Pulse Oximetry 100 100 100 07/11/25 07:51 07/11/25 07:56 07/11/25 08:01 Temperature Pulse Rate 73 Blood Pressure 122/67 Pulse Oximetry 100 100 99 07/11/25 08:06 07/11/25 08:11 07/11/25 08:16 Temperature Pulse Rate 81 Blood Pressure 132/75 Pulse Oximetry 100 100 99 07/11/25 08:21 07/11/25 08:26 07/11/25 08:31 Temperature Pulse Rate 82 Blood Pressure 130/68 Pulse Oximetry 100 99 100 07/11/25 08:36 07/11/25 08:41 Temperature Pulse Rate Blood Pressure Pulse Oximetry 99 99 Exam Const: General: cooperative, no acute distress and obese Nutritional Appearance: obese Orientation/consciousness: patient oriented x3 Resp: Effort & Inspection: normal respiratory effort Cardio: Rate: regular rate GI: GI Palp: No abdominal tenderness : Other: FHT's: 130's/ mod kandice/ + accels/ no decels - cat 1 TOCO: irregular ctxs Cervix: 4/50/-3 Membranes: intact Presentation: cephalic on bedside US Skin: General skin exam: normal color Neuro: General: patient oriented x3 Extrem: General: normal to inspection Psych: Appearance: grossly normal Affect: normal affect Attitude: cooperative H&P: Results Labs Labs: Short CBC 07/11/25 Range/Units 06:10 WBC 12.5 H (4.5-10.0) K/mm3 Hgb 11.8 L (12.0-15.0) g/dL Hct 38.2 (37.0-47.0) % Plt Count 194 (150-375) k/mm3 Assessment and Plan Assessment and plan (1) Pre-eclampsia: Code(s): O14.90 - Unspecified pre-eclampsia, unspecified trimester Status: Acute Plan - Admitted for medical induction of labor; risks and benefits discussed - High dose pitocin per protocol - Will plan for AROM after 4 hours of abx - Continuous monitoring - GBS positive; ampicillin - Anesthesia consult PRN pain - labs normal yesterday; asymptomatic; BPs in normal to moderate range.
[2025-07-11] MEDS: AMPICILLIN SODIUM 1 GM in SODIUM CHLORIDE 0.9% IV 50 ML 100 ML IVPB (11:03)
[2025-07-11] MEDS: ONDANSETRON INJ 4 MG/2 ML VIAL IV PUSH (11:03)
--- NOTE | 2025-07-11 12:23 | PM.OBPNLAB ---
Pain Control Date/time seen: 07/11/25 12:23 Pain control: epidural Pelvic Exam Dilation (cm): 4 (-5) Effacement (%): 50 station: -2 Amniotic membrane status: Ruptured (AROM, clear 1215) Contractions Monitor mode: Internal Contraction frequency: 2 Contraction pattern: Regular Status status: Category l Assessment and Plan Pitocin rate (mU/min): 14 Assessment: induction ongoing Plan: continuous present management Comments: - continue Ampicillin - BPs moderate, no severe; asymptomatic
[2025-07-11] MEDS: OXYTOCIN 10 UNITS/ML VIAL IM (14:53)
[2025-07-11] MEDS: OXYTOCIN 30 UNITS/NS 500 ML 30 UNITS/500 ML BAG 125 UNITS IV CONT (15:19)
--- NOTE | 2025-07-11 15:24 | S_PTH ---
PATIENT: Екатерина Jay LOC: [facility] U#:[id number] AGE/SX: 24/F ROOM: 279 RE07/11/[address]: Chaya Torres MD : 2000 BED: 00 DIS: 07/12/2025 SPEC #: [id number] RECD: 07/12/25 08:55 STATUS: DARRON RETigre #: [id number] JOCELYN: 07/11/25 15:[address]: Chaya Torres DEPT: [facility] Surgical RECD BY: Opal Christensen ENTERED: 07/12/25 08:55 SP TYPE: Surgical OTHR DR: PHYSICIAN NOT ON STAFF Tissues: A - Placenta Procedures: Hematoxylin and Eosin Stain Gross and Microscopic Level 5
--- NOTE | 2025-07-11 15:47 | P.PCNOB_ITS ---
OB - Vaginal Delivery Note Procedure Delivery date: 07/11/25 Events: Positive Group B Strep (GBS) and Preeclampsia w/o severe features Delivery augmentation: Rupture of Membranes and Pitocin Delivery monitor: External FHT and Internal Uterine Route of delivery: Episiotomy description: None Laceration Description: Perineal - 2nd Degree Specimen: Yes (placenta) Quantitative Blood Loss (ml): 500 Anesthesia type: Epidural Disposition: Floor Complications: None [place] Baby Date of : 07/11/25 Gestational Age by Date: 37 gender: Male presentation: vertex Placenta delivery description: Expressed Cord Vessel Description: 3 Vessels and Clamped/Cut Narrative: Abbiegail rapidly progressed from 5 cm to completely dilated. When I presented to the room the top of the head was already at the perineum. She pushed for 3 contractions with good maternal effort. She delivered the head over intact perineum. No nuchal cord was palpated. She easily delivered the infant's shoulders and body without complication. The infant was immediately placed skin to skin but cry was not heard and the pediatric team that was present at asked for me to doubly clamp and cut the cord. He was taken over to the warmer for further stimulation and breathing assistance and a small cry was heard. A segment of the cord was then collected for cord gases. The remaining cord blood was collected for typing. With Pitocin running and gentle downward traction on the cord, the placenta delivered without complication. At this point there were complications with her IV, and the pitocin was not infusing. She was given Pitocin 10 mg IM to help with bleeding. Bimanual massage was performed and the uterus was noted to contract. She was examined and a second-degree perineal laceration was identified. The laceration was repaired in the normal fashion using 2-0 Vicryl and good reapproximation with minimal bleeding was noted. There were was a least twice where brisker bleeding was noted during the perineal laceration repair and bimanual massage was performed and slight atony was noted; uterine sweep removed small clots and the uterus would contract and bleeding would decrease. Cytotec 800 mcg was placed rectally and her uterus was then found to be firm with minimal bleeding. Sponge, lap, instrument, and needle counts were correct at the end of the procedure. The infant was taken to the nursery and mom remained in the delivery suite in a stable condition.
[2025-07-11] MEDS: IBUPROFEN 600 MG TABLET (15:52)
[2025-07-11] MEDS: SERTRALINE HCL 50 MG TABLET 150 MG PO (22:00)
[2025-07-12] MEDS: IBUPROFEN 600 MG TABLET PO ×2 (01:20→07:58)
[2025-07-12] MEDS: ACETAMINOPHEN 325 MG TABLET 650 MG PO ×2 (04:50→11:47)
[2025-07-12 05:00] VITALS: BP 120/72; PULSE 72
[2025-07-12 05:17] LABS: Hematocrit 35.2 % (37.0-47.0); Hemoglobin 10.2 g/dL (12.0-15.0); Mean Corpuscular HGB Conc 29.0 g/dl (32-36); Mean Corpuscular Hemoglobin 25.9 pg (26-34); Mean Corpuscular Volume 89.3 fl (80-100); Platelet Count Result 150 k/mm3 (150-375); Red Blood Count 3.94 M/mm3 (4.2-5.4); White Blood Count 14.2 K/mm3 (4.5-10.0)
--- NOTE | 2025-07-12 07:07 | P.PNOB_ITS ---
OB - PN: Subj Subjective Date/time seen: 07/12/25 07:07 Narrative: PPD#1 Екатерина reports doing well today. 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 Her pain is controlled. She is tolerating regular diet, voiding, passing gas, and ambulating without issues. She is breast feeding/pumping. Her son was transferred overnight due to breathing issues/possible seizures. OB - PN: Obj Data Labs 07/12/25 04:37 Labs: Laboratory Results - last 24 hr 07/11/25 07/12/25 06:10 04:37 WBC 14.2 H RBC 3.94 L Hgb 10.2 L Hct 35.2 L MCV 89.3 D MCH 25.9 L MCHC 29.0 L RDW 14.4 Plt Count 150 MPV 10.8 H Syphilis IgG/IgM Ab Non-reactive Blood Type A Negative Antibody Screen Positive Antibody Identification Passive Due to RH Imm Glob Antigen Identification TNP QUENTIN, IgG Interpret TNP QUENTIN, Poly Interpret Negative QUENTIN, Complement Interp TNP OB - PN A/P Assessment and Plan (1) Normal vaginal delivery: Code(s): O80 - Encounter for full-term uncomplicated delivery Status: Acute (2) Pre-eclampsia: Code(s): O14.90 - Unspecified pre-eclampsia, unspecified trimester Status: Acute Plan day: 1 Plan: routine care and discharge home Comments: - PO pain meds - Regular diet - Ambulation and hydration encouraged - Continue pumping q2-3hr - Pelvic rest; take meds as prescribed - ER return precautions: fever, n/v/abd pain, bleeding, HTN - BP check in office 07/17- (office will call her) Time Spent With Patient Time: Total time spent is greater than 50% in coordination of care (as documented) at patient's floor/unit and/or counseling patient: Review of Systems 2 Constitutional: Constitutional: Denies chills, Denies fever(s) and Denies headache(s) Eyes: Eyes: Denies change in vision ENT: Denies dizziness and Denies headache(s) Cardiovascular: Cardiovascular: Denies chest pain, Denies palpitations and Denies dyspnea Respiratory: Respiratory: Denies cough and Denies dyspnea Gastrointestinal: Gastrointestinal: Denies nausea and Denies vomiting Neurologic: Denies dizziness and Denies headache(s) Endocrine: Endocrine: Denies palpitations Exam 2 Const: General: cooperative, comfortable and no acute distress O rientation/consciousness: patient oriented x3 Resp: Effort & Inspection: normal respiratory effort Auscultation: clear to auscultation bilaterally Cardio: Rate: regular rate GI: Inspection: non-distended GI Palp: No abdominal tenderness and Yes Soft to palpation Auscultation: normal bowel sounds : Other: fundus firm Skin: General skin exam: normal color Neuro: General: patient oriented x3 Extrem: General: normal to inspection Psych: Appearance: grossly normal Affect: normal affect Attitude: c ooperative
--- NOTE | 2025-07-12 07:30 | WPDANLDPN2 ---
Anes-Prog Note L&D Date/Time: 07/12/25 07:30 Comfortable throughout: labor and delivery Neuraxial method: epidural Epidural/Spinal procedure site: clean & non-tender Neuro status: Neuro function grossly intact. Cardiovascular status: normal Respiratory status: normal Airway patency: baseline Mental status: baseline Post-Op hydration status: normal Vital Signs: Last Vital Signs Temp 36.8 C 07/11/25 22:44 Pulse 72 07/12/25 05:00 Resp 16 07/11/25 22:44 BP 120/72 07/12/25 05:00 Pulse Ox 98 07/11/25 22:44 O2 Del Method Room Air 07/11/25 19:31 Pain score (VAS): 1 I/O: Intake & Output 07/11/25 07/11/25 07/12/25 15:59 23:59 07:59 Intake Total 2000 Output Total 150 Balance 2000 -150 Post-procedural complaints: none Patient feedback: Patient satisfied with anesthetic care.
--- NOTE | 2025-07-12 07:33 | P.DS_ITS ---
DS: Admitting Diagnosis Discharge Date 07/12/25 Admitting Diagnosis pre-eclampsia w/o severe features LGA mild polyhydrmanios h/o iufd DS: Discharge Diagnosis Discharge Diagnosis (1) Normal vaginal delivery: Code(s): O80 - Encounter for full-term uncomplicated delivery Status: Acute (2) Pre-eclampsia: Code(s): O14.90 - Unspecified pre-eclampsia, unspecified trimester Status: Acute OB - DS: Summary OB Procedures : NST, PIH Mgmt and Ultrasound OB Procedures Intrapartum: Spontaneous Vag Delivery OB Procedures: : None Peripartum Data Delivery Method: Natural Vaginal Laceration Description: Perineal - 2nd Degree Episiotomy description: None complications: none 1: Gender: Male Disposition of : NICU Status at Discharge Functional status at discharge: independent ambulation Overall status at discharge: patient is back to baseline Time Spent with Patient Time attestation: Total time spent providing and/or coordinating discharge services: Exam Const: General: cooperative, comfortable, no acute distress and obese Nut ritional Appearance: obese Orientation/consciousness: patient oriented x3 Resp: Effort & Inspection: normal respiratory effort Auscultation: clear to auscultation bilaterally Cardio: Rate: regular rate GI: Inspection: non-distended GI Palp: No abdominal tenderness and Yes Soft to palpation Auscultation: normal bowel sounds : Other: fundus firm Skin: General skin exam: normal color Neuro: General: patient oriented x3 Extrem: General: normal to inspection Psych: Appearance: grossly normal Affect: normal affect Attitude: cooperative DS: Data Data Completed and Pending Pending studies at discharge: Pending at discharge 07/11/25 15:24 Surgical [PTH] Routine Labs on day of discharge: Labs from last 24 hours 07/12/25 07/12/25 07/11/25 06:29 04:37 06:10 WBC 14.2 H RBC 3.94 L Hgb 10.2 L Hct 35.2 L MCV 89.3 D MCH 25.9 L MCHC 29.0 L RDW 14.4 Plt Count 150 MPV 10.8 H Syphilis IgG/IgM Ab Non-reactive Blood Type A Negative A Negative Antibody Screen Pending Positive Antibody Identification Passive Due to RH Imm Glob Antigen Identification TNP QUENTIN, IgG Interpret TNP QUENTIN, Poly Interpret Negative QUENTIN, Complement Interp TNP Screen Pending Baby's Blood Type Pending Baby's QUENTIN Pending Doses of RhIg Required Pending Discharge Plan Discharge Attending physician on discharge: Chaya Torres Discharging Clinician: Chaya Torres Patient Disposition: Home Activity: may shower and pelvic rest Diet: regular Patient Instructions: Antibiotic Form Patient Language: [place] Stand Alone Forms: General Discharge Information Follow-up/Referrals: Chaya Torres MD [Physician, [employer]] - 4 Weeks Discharge Medications: New ibuprofen 800 mg tablet 800 mg PO TID Qty: 40 0RF acetaminophen 500 mg tablet 1,000 mg PO TID Qty: 60 0RF docusate sodium [Colace] 100 mg capsule 100 mg PO BID Qty: 90 0RF Continued buspirone 15 mg tablet 15 mg PO DAILY sertraline 100 mg tablet 150 mg PO DAILY One A Day Women's DHA 28 mg iron- 800 mcg combo pack See Rx Instructions PO .COMPLEX Rx Instructions: orally; ferrous sulfate 325 mg (65 mg iron) tablet 325 mg PO DAILY Discontinued riboflavin (vitamin B2) 400 mg tablet 400 mg PO QHS Qty: 30 1RF magnesium oxide 400 mg magnesium tablet 400 mg PO QHS Qty: 30 1RF Date of admission: 07/11/25 05:28 Primary Care Provider: PHYSICIAN NOT ON STAFF,NONSTAFF Admitting Provider: Chaya Torres Attending physician on admission: Chaya Torres Condition: Stable
[2025-07-12 07:50] VITALS: BP 133/90; PULSE 84; RESP 16; TEMP 36.9; O2SAT 100
[2025-07-12] MEDS: MULTIVIT/MIN/PREN/FOL AC/IRON TABLET 1 TAB PO (07:56)
[2025-07-12] MEDS: DOCUSATE SODIUM 100 MG CAPSULE PO (07:56)
--- NOTE | 2025-07-12 11:15 | PC.NURSE ---
Breast pump provided last night by Primary RN due to being transferred to [facility]. Per mother she was given handout instructions given on cleaning, care, usage, that there should be no pain, pumping schedule for milk production, collection, and storage of human milk. Per mother she was assessed for correct placement, flange size, to pump for comfort and nipple stretching/stimulation for adequate milk production every 3 hours (8 times in 24 hours) 1-2 times at night. Mother was encouraged to record the pumping schedule on the feeding sheet.?Mother voiced understanding of the education shared along with mom/baby guide and the pump measurement, flange fit handout for additional resource information. Reinforced understanding of milk production, transition of milk, prevention/relief of engorgement, plugged ducts, mastitis, community resources, and when to call a provider. Mother voiced understanding of the information shared, when to call for assistance, denies any additional assistance or education at this time. Reported to the Primary RN.
[2025-07-12] MEDS: TETANUS,DIPHTHERIA,AC PERTUSSIS ADULT (0.5 ML) BOOSTRIX IM (11:49)
[2025-07-12 11:56] VITALS: BP 133/86; PULSE 72; RESP 15; TEMP 36.9; O2SAT 100
[2025-07-14 10:44] VITALS: BP 132/90; PULSE 71; RESP 18; TEMP 36.9; O2SAT 100
== END 2025-07-12 13:04 | disposition home or self-care (01) | DRG 807 ==
LOC: ANHLDR 05:48 → ANHOB2 18:48
PROVIDERS: Admitting Provider Obstetrics & Gynecology; Visit Provider Obstetrics & Gynecology
DX: O14.04 Mild to moderate pre-eclampsia, complicating childbirth (principal); Z37.0 Single live birth; Z3A.37 37 weeks gestation of pregnancy; O26.893 Other specified pregnancy related conditions, third trimester; O40.3XX0 Polyhydramnios, third trimester, not applicable or unspecified; Z67.91 Unspecified blood type, Rh negative; O99.824 Streptococcus B carrier state complicating childbirth; O99.344 Other mental disorders complicating childbirth; F41.9 Anxiety disorder, unspecified; F32.A Depression, unspecified; O70.1 Second degree perineal laceration during delivery; O69.89X0 Labor and delivery complicated by other cord complications, not applicable or unspecified
CPT/HCPCS: 36415; 59025; 76819; 80053; 81001; 82570; 84156; 84550; 85025; 85027; 85461; 86593; 86850; 86880; 86900; 86901; 86902; 87086; 88307; 90715; A9270; J0290; J2405; J2590; J2795; J7120